=== PATIENT | male | born 1940 | race Caucasian/White ===

== ENCOUNTER → 2016-10-08 | Outpatient (CLI) | payer OTHER ==
[~2016-10-08] MED LIST: AMLO-114 PO; AMLO5TAB2 PO; ASPCH81X PO; ASPI81TA21 PO; ATEN100T PO; ATOR80TA PO; DOCU100C PO; GLIM2TAB2 PO; ISOS120T5 PO; ISOS60TA2 PO; LSX20 PO; NITR0.4S UT; PLV75 PO; TYLOTC500 PO; ZNTT/150 PO
[2016-10-08 12:44] LABS: HEMATOCRIT 48.9 % (42-52); MEAN CELL VOLUME 93.7 fL (80-100); MEAN CORPUSCULAR HEMOGLOBIN 32.8 pg (25-34); MEAN PLATELET VOLUME 11.5 fL (7.4-10.4); PLATELET COUNT 196 K/uL (130-400); RED BLOOD COUNT 5.22 M/uL (4.7-6.1); WHITE BLOOD COUNT 8.39 K/uL (4.8-10.8)
[2016-10-08 13:06] LABS: ALT/SGPT 54 U/L (12-78); BLOOD UREA NITROGEN 16 mg/dl (7-18); BUN/CREATININE RATIO 10.5 (10-20); CALCIUM 9.1 mg/dl (8.5-10.1); CARBON DIOXIDE 25 mmol/L (21-32); CHLORIDE 105 mmol/L (98-107); CHOLESTEROL 119 mg/dl (0-200); GLUCOSE 138 mg/dl (70-99); POTASSIUM 4.1 mmol/L (3.5-5.1); SODIUM 140 mmol/L (136-145); TRIGLYCERIDES 117 mg/dl (0-150); VERY LOW DENSITY LIPOPROT CALC 23 mg/dl
[2016-10-08 13:16] LABS: ALKALINE PHOSPHATASE 108 U/L (45-117); AST/SGOT 32 U/L (15-37); CHOLESTEROL/HDL RATIO 3.1; HDL CHOLESTEROL 38 mg/dl; LDL CHOLESTEROL CALCULATED 58 mg/dl
[2016-10-08 13:17] LABS: ESTIMATED AVERAGE GLUCOSE 131 mg/dl; HA1C FLAG Normal (Normal)
== END | disposition home or self-care (01) ==
LOC: C.LABBFT 10:19
PROVIDERS: ATTEND Internal Medicine Cardiovascular Disease
DX: E11.21 Type 2 diabetes mellitus with diabetic nephropathy (principal); I25.10 Atherosclerotic heart disease of native coronary artery without angina pectoris; I50.32 Chronic diastolic (congestive) heart failure

== ENCOUNTER → 2017-04-15 | Day surgery (SDC) | payer OTHER ==
[2017-03-31 14:15] VITALS: Ht 172.7 cm; Wt 97.7 kg
[~2017-04-15] VITALS: Ht 172.7 cm; Wt 97.7 kg
[~2017-04-15] MED LIST changes: +500ML BSS 0.3ML EPI 1:1000PF IRRIG ONE; +ACETAMINOPHEN 325 MG TAB PO PRN; -AMLO5TAB2 PO; +AMVISC PLUS 0.8ML SYRINGE INT OCU ONE; -ASPCH81X PO; +ATROPINE SULFATE 0.1 MG/ML 5ML SYR IV PRN; +AcetaZOLAMIDE 250 MG TAB PO SCH; +BETAXOLOL HCL 0.25% OP SUSP PER DROP CHARGE OPR SCH; +BRIMONIDINE TART 0.2% OP SOLN PER DROP CHARGE ONE; +BSS FLUSH ONE; -DOCU100C PO; +ENDOCOAT 0.85ML SYRINGE INT OCU ONE; +EpHEDrine SULFATE INJ 50 MG/ML AMP IV PRN; +EpINEphrine INJ 1MG/ML AMP 1 MG/ML AMP ONE; -ISOS60TA2 PO; +LACTATED RINGER'S 1000ML 500 ML IV SCH; +LIDOCAINE 4% OP SOLN DROP CHARGE ONE; +LIDOCAINE 4% OP SOLN DROP CHARGE OPR SCH; +LIDOCAINE HCL 1% MPF 2 ML VIAL ONE; +MIDAZOLAM HCL 1 MG/ML 2ML VIAL ONE; +MIX: 4ML BSS 1ML EPI 1:1000 PF INSTIL ONE; +MOXIFLOXACIN OPH SOLN PER DROP CHARGE ONE; +OCUCOAT 1 ML SOLN IO ONE; +ONDANSETRON INJ 2 MG/ML 2 ML VIAL IV PRN; +POVIDONE-IODINE OP SOLN 30 ML BTL ONE; +PROPARACAINE 0.5% OP SOLN PER DROP CHARGE OPR SCH; +TOBRAMYCIN/DEXAMETHASONE OPH OINT PER APPLN CHARGE ONE; -TYLOTC500 PO
--- NOTE | 2017-04-15 08:14 | History & Physical Bridge - [place] ---
H&P Re-Evaluation Bridge Note: I have examined the patient, reviewed the History & Physical and in the interval since the performance of the History & Physical I have noted the following changes of clinical significance: No changes noted
[2017-04-15] MEDS: PHENYLEPHRINE HCL 2.5% OP SOLN PER DROP CHARGE OPR SCH ×2 (08:52→08:57)
[2017-04-15] MEDS: TROPICAMIDE 1% OP SOLN PER DROP CHARGE OPR SCH ×2 (08:53→08:58)
[2017-04-15] MEDS: CYCLOPENTOLATE HCL 1% OP SOLN PER DROP CHARGE OPR SCH ×2 (08:54→08:59)
[2017-04-15] MEDS: MOXIFLOXACIN OPH SOLN PER DROP CHARGE OPR SCH ×2 (08:55→09:06)
--- NOTE | 2017-04-15 09:50 | Discharge Instructions-SurgCtr ---
Discharge Instructions Date of Service Apr 15, 2017. Visit Reason for Visit: Cataract Right Eye Discharge Discharge Diagnosis / Problem: lens implant right eye Discharge Goals Goal(s): Improve function Medications Stopped Medications Name(s): Stopped baby aspirin and metformin Activity Recommendations Activity Limitations: resume your previous activity Lifting Limitations: no more than 10 pounds Exercise/Sports Limitations: gradually increase as tolerated May Resume Sexual Activity: when tolerated Shower/Bathe: tomorrow Driving or Machine Use: resume 1 day after discharge Anesthesia . Post Anesthesia Instructions: If you have had General Anesthesia or IV Sedation: * Do not drive today. * Resume driving when surgeon permits. * Do not make important decisions or sign legal documents today. * Call surgeon for: 1. Temperature elevations greater than 101 degrees F. 2. Uncontrollable pain. 3. Excessive bleeding. 4. Persistent nausea and vomiting. 5. Medication intolerance (nausea, vomiting or rash). * For nausea and vomiting use only clear liquids such as: tea, soda, bouillon until nausea subsides, then gradually increase diet as tolerated. * If you have any concerns or questions, call your surgeon's office. If physician is unavailable and it is an emergency, call 911 or go to the nearest emergency room. . Instructions / Follow-Up Instructions / Follow-Up ACTIVITY RECOMMENDATIONS: * Light activities. * Mild irritation and blurred vision are common for the first few days. * You may walk outside, read, watch television. * Redness around the white part of the eye is common. MEDICATIONS: Resume previous medications unless instructed otherwise by your surgeon. * Take white Diamox (Acetazolamide) tablet at 1 pm today. Start all eye drops at 1 pm today: * Eye drops (today and tomorrow): Prednisone - one drop in operative eye every 3 hours while awake Ofloxacin - one drop in operative eye every 3 hours while awake SPECIAL CARE INSTRUCTIONS: * Tape plastic shield over eye to sleep at night. Call your doctor at with any concerns or problems. FOLLOW UP VISIT: Follow-up with Dr Beasley at [place] office as scheduled. Diet Recommendations Home Diet: no limitations Procedures Procedures Performed: cataract extraction with lens implant Pending Studies Studies pending at discharge: no Medical Emergencies . Who to Call and When: Medical Emergencies: If at any time you feel your situation is an emergency, please call 911 immediately. . Non-Emergent Contact Non-Emergency issues call your: Talent Development Specialist Call Non-Emergent contact if: your pain is not controlled [phone] . . "Provider Documentation" section prepared by Dawood Beasley. .
--- NOTE | 2017-04-15 09:52 | [facility] Operative Report ---
Operative Report Date of Service Apr 15, 2017. Operative Report 1. PREOPERATIVE DIAGNOSIS: Senile nuclear cataract, right eye. 2. POSTOPERATIVE DIAGNOSIS: Senile nuclear cataract, right eye. 3. PROCEDURE: Phacoemulsification of right cataract with posterior chamber lens implant, type [employer]ch [employer] Lomb, model MX60, power +23.0 diopters. ANESTHESIA: Local standby. SURGEON: Dr. Beasley. COMPLICATIONS: None. OPERATING TIME: 10 minutes. 4. OPERATION AND FINDINGS: DESCRIPTION OF PROCEDURE: The right pupil was dilated. The anesthetic was administered using a topical technique. The right eye was prepped and draped. A speculum was placed. A clear corneal incision was formed. The chamber was filled with Amvisc Plus and Endocoat. Epinephrine solution was used. A paracentesis was placed. A capsulorrhexis was performed. The nucleus was hydrodissected. The lens was removed with phacoemulsification. Time was 4.49 seconds. The aspiration unit was used to remove the cortex. The capsule was filled with Amvisc Plus. The lens implant was folded and placed into the capsule. The incision was hydrated. The Amvisc was aspirated. The wound was secure. The chamber was deep. The pupil was round. Brimonidine, TobraDex ointment and Vigamox solution were placed. The speculum was removed. The patient was returned to the Recovery Room in stable condition. I attest to the content of the Intraoperative Record and any orders documented therein. Any exceptions are noted below. The scribe's documentation has been prepared in my presence, under my direction and personally reviewed by me in its entirety. I confirm that the note above accurately reflects all work, treatment, procedures, and medical decision making performed by me. I personally scribed for Dawood Beasley M.D. ([email or web address]) on 04/15/17 at 09:52. Electronically submitted by She Cano ([email or web address]).
[2017-04-15 09:58] VITALS: TEMP 36.4
[2017-04-15 10:23] VITALS: BP 128/70; PULSE 49; O2SAT 99
--- NOTE | 2017-04-15 10:30 | Anesthesia Progress Nt - [facility] ---
Anesthesia Post Op Note Date & Time Apr 15, 2017 at 10:30 Vital Signs Pain Intensity: 0 Vital Signs Past 12 Hours Date Time Temp Pulse Resp B/P (MAP) Pulse Ox O2 Delivery O2 Flow Rate FiO2 04/15/17 10:23 49 16 128/70 (89) 99 Room Air 04/15/17 09:58 36.4 47 14 113/77 (89) 99 Room Air 04/15/17 08:35 36.4 44 12 142/77 (98) 97 Room Air Notes Mental Status: alert / awake / arousable, participated in evaluation Pt Amnestic to Procedure: Yes Nausea / Vomiting: adequately controlled Pain: adequately controlled Airway Patency, RR, SpO2: stable & adequate BP & HR: stable & adequate Hydration State: stable & adequate Anesthetic Complications: no major complications apparent
== END | disposition home or self-care (01) ==
LOC: X.SURG 07:34
PROVIDERS: ATTEND Specialist
DX: H25.11 Age-related nuclear cataract, right eye (principal); I10 Essential (primary) hypertension; I51.9 Heart disease, unspecified

== ENCOUNTER → 2017-05-06 | Day surgery (SDC) | payer OTHER ==
[2017-04-27 09:43] VITALS: Ht 172.7 cm; Wt 97.7 kg
[~2017-05-06] VITALS: Ht 172.7 cm; Wt 97.7 kg
[~2017-05-06] MED LIST changes: +BETAXOLOL HCL 0.25% OP SUSP PER DROP CHARGE OPL SCH; -BETAXOLOL HCL 0.25% OP SUSP PER DROP CHARGE OPR SCH; +LIDOCAINE 4% OP SOLN DROP CHARGE OPL SCH; -LIDOCAINE 4% OP SOLN DROP CHARGE OPR SCH; -ONDANSETRON INJ 2 MG/ML 2 ML VIAL IV PRN; +PROPARACAINE 0.5% OP SOLN PER DROP CHARGE OPL SCH; -PROPARACAINE 0.5% OP SOLN PER DROP CHARGE OPR SCH; -ZNTT/150 PO
[2017-05-06] MEDS: PHENYLEPHRINE HCL 2.5% OP SOLN PER DROP CHARGE OPL SCH ×2 (10:44→10:49)
[2017-05-06] MEDS: TROPICAMIDE 1% OP SOLN PER DROP CHARGE OPL SCH ×2 (10:45→10:50)
[2017-05-06] MEDS: CYCLOPENTOLATE HCL 1% OP SOLN PER DROP CHARGE OPL SCH ×2 (10:46→10:51)
[2017-05-06] MEDS: MOXIFLOXACIN OPH SOLN PER DROP CHARGE OPL SCH ×2 (10:47→11:03)
--- NOTE | 2017-05-06 11:45 | Discharge Instructions-SurgCtr ---
Discharge Instructions Date of Service May 06, 2017. Visit Reason for Visit: Cataract Left Eye Discharge Discharge Diagnosis / Problem: lens implant left eye Discharge Goals Goal(s): Improve function Activity Recommendations Activity Limitations: resume your previous activity Lifting Limitations: no more than 10 pounds Exercise/Sports Limitations: gradually increase as tolerated May Resume Sexual Activity: when tolerated Shower/Bathe: tomorrow Driving or Machine Use: resume 1 day after discharge Anesthesia . Post Anesthesia Instructions: If you have had General Anesthesia or IV Sedation: * Do not drive today. * Resume driving when surgeon permits. * Do not make important decisions or sign legal documents today. * Call surgeon for: 1. Temperature elevations greater than 101 degrees F. 2. Uncontrollable pain. 3. Excessive bleeding. 4. Persistent nausea and vomiting. 5. Medication intolerance (nausea, vomiting or rash). * For nausea and vomiting use only clear liquids such as: tea, soda, bouillon until nausea subsides, then gradually increase diet as tolerated. * If you have any concerns or questions, call your surgeon's office. If physician is unavailable and it is an emergency, call 911 or go to the nearest emergency room. . Instructions / Follow-Up Instructions / Follow-Up ACTIVITY RECOMMENDATIONS: * Light activities. * Mild irritation and blurred vision are common for the first few days. * You may walk outside, read, watch television. * Redness around the white part of the eye is common. MEDICATIONS: Resume previous medications unless instructed otherwise by your surgeon. * Take white Diamox (Acetazolamide) tablet at 1 pm today. Start all eye drops at 1 pm today: * Eye drops (today and tomorrow): Prednisone - one drop in operative eye every 3 hours while awake Ofloxacin - one drop in operative eye every 3 hours while awake SPECIAL CARE INSTRUCTIONS: * Tape plastic shield over eye to sleep at night. Call your doctor at with any concerns or problems. FOLLOW UP VISIT: Follow-up with Dr Beasley at [place] office as scheduled. Diet Recommendations Home Diet: no limitations Procedures Procedures Performed: cataract extraction with lens implant Pending Studies Studies pending at discharge: no Medical Emergencies . Who to Call and When: Medical Emergencies: If at any time you feel your situation is an emergency, please call 911 immediately. . Non-Emergent Contact Non-Emergency issues call your: Bumper Machine Operator Call Non-Emergent contact if: your pain is not controlled [phone] . . "Provider Documentation" section prepared by Dawood Beasley. .
--- NOTE | 2017-05-06 11:47 | [facility] Operative Report ---
Operative Report Date of Service May 06, 2017. Operative Report 1. PREOPERATIVE DIAGNOSIS: Senile nuclear cataract, left eye. 2. POSTOPERATIVE DIAGNOSIS: Senile nuclear cataract, left eye. 3. PROCEDURE: Phacoemulsification of left cataract with posterior chamber lens implant, type Bausch [employer] Lomb, model MX60, power +22.5 diopters. ANESTHESIA: Local standby. SURGEON: Dr. Beasley. COMPLICATIONS: None. OPERATING TIME: 10 minutes. 4. OPERATION AND FINDINGS: DESCRIPTION OF PROCEDURE: The left pupil was dilated. The anesthetic was administered using a topical technique. The left eye was prepped and draped. A speculum was placed. A clear corneal incision was formed. The chamber was filled with Amvisc Plus and Endocoat. Epinephrine solution was used. A paracentesis was placed. A capsulorrhexis was performed. The nucleus was hydrodissected. The lens was removed with phacoemulsification. Time was 4.85 seconds. The aspiration unit was used to remove the cortex. The capsule was filled with Amvisc Plus. The lens implant was folded and placed into the capsule. The incision was hydrated. The Amvisc was aspirated. The wound was secure. The chamber was deep. The pupil was round. Brimonidine, TobraDex ointment and Vigamox solution were placed. The speculum was removed. The patient was returned to the Recovery Room in stable condition. I attest to the content of the Intraoperative Record and any orders documented therein. Any exceptions are noted below. The scribe's documentation has been prepared in my presence, under my direction and personally reviewed by me in its entirety. I confirm that the note above accurately reflects all work, treatment, procedures, and medical decision making performed by me. I personally scribed for Dawood Beasley M.D. ([email or web address]) on 05/06/17 at 11:47. Electronically submitted by She Cano ([email or web address]).
[2017-05-06 11:51] VITALS: BP 114/68; PULSE 49; TEMP 37; O2SAT 97
--- NOTE | 2017-05-06 12:16 | Anesthesia Progress Nt - [facility] ---
Anesthesia Post Op Note Date & Time May 06, 2017 at 12:15 Vital Signs Pain Intensity: 0 Vital Signs Past 12 Hours Date Time Temp Pulse Resp B/P (MAP) Pulse Ox O2 Delivery O2 Flow Rate FiO2 05/06/17 11:51 37.0 49 12 114/68 (83) 97 Room Air 05/06/17 10:31 36.5 53 18 150/76 (100) 97 Room Air Notes Mental Status: alert / awake / arousable, participated in evaluation Pt Amnestic to Procedure: Yes Nausea / Vomiting: adequately controlled Pain: adequately controlled Airway Patency, RR, SpO2: stable & adequate BP & HR: stable & adequate Hydration State: stable & adequate Anesthetic Complications: no major complications apparent
== END | disposition home or self-care (01) ==
LOC: X.SURG 08:56
PROVIDERS: ATTEND Specialist
DX: H25.12 Age-related nuclear cataract, left eye (principal); I10 Essential (primary) hypertension; Z79.82 Long term (current) use of aspirin; Z79.899 Other long term (current) drug therapy

== ENCOUNTER → 2017-05-08 | Outpatient (CLI) | payer OTHER ==
[~2017-05-08] MED LIST changes: -500ML BSS 0.3ML EPI 1:1000PF IRRIG ONE; -ACETAMINOPHEN 325 MG TAB PO PRN; -AMVISC PLUS 0.8ML SYRINGE INT OCU ONE; -ATROPINE SULFATE 0.1 MG/ML 5ML SYR IV PRN; -AcetaZOLAMIDE 250 MG TAB PO SCH; -BETAXOLOL HCL 0.25% OP SUSP PER DROP CHARGE OPL SCH; -BRIMONIDINE TART 0.2% OP SOLN PER DROP CHARGE ONE; -BSS FLUSH ONE; -ENDOCOAT 0.85ML SYRINGE INT OCU ONE; -EpHEDrine SULFATE INJ 50 MG/ML AMP IV PRN; -EpINEphrine INJ 1MG/ML AMP 1 MG/ML AMP ONE; -LACTATED RINGER'S 1000ML 500 ML IV SCH; -LIDOCAINE 4% OP SOLN DROP CHARGE ONE; -LIDOCAINE 4% OP SOLN DROP CHARGE OPL SCH; -LIDOCAINE HCL 1% MPF 2 ML VIAL ONE; -MIDAZOLAM HCL 1 MG/ML 2ML VIAL ONE; -MIX: 4ML BSS 1ML EPI 1:1000 PF INSTIL ONE; -MOXIFLOXACIN OPH SOLN PER DROP CHARGE ONE; -OCUCOAT 1 ML SOLN IO ONE; -POVIDONE-IODINE OP SOLN 30 ML BTL ONE; -PROPARACAINE 0.5% OP SOLN PER DROP CHARGE OPL SCH; -TOBRAMYCIN/DEXAMETHASONE OPH OINT PER APPLN CHARGE ONE
[2017-05-08 16:48] LABS: HEMATOCRIT 48.5 % (42-52); MEAN CELL VOLUME 91.7 fL (80-100); MEAN CORPUSCULAR HEMOGLOBIN 31.8 pg (25-34); MEAN CORPUSCULAR HGB CONC 34.6 g/dl (32-36); MEAN PLATELET VOLUME 11.4 fL (7.4-10.4); PLATELET COUNT 186 K/uL (130-400); RED BLOOD COUNT 5.29 M/uL (4.7-6.1); WHITE BLOOD COUNT 8.17 K/uL (4.8-10.8)
[2017-05-08 17:02] LABS: ALT/SGPT 53 U/L (12-78); AST/SGOT 30 U/L (15-37); BLOOD UREA NITROGEN 19 mg/dl (7-18); BUN/CREATININE RATIO 13.8 (10-20); CARBON DIOXIDE 23 mmol/L (21-32); CHLORIDE 109 mmol/L (98-107); GLUCOSE 136 mg/dl (70-99); POTASSIUM 3.9 mmol/L (3.5-5.1); SODIUM 139 mmol/L (136-145)
[2017-05-08 17:05] LABS: ALB/GLOB RATIO 0.8 (0.9-2); ALKALINE PHOSPHATASE 116 U/L (45-117); CHOLESTEROL 96 mg/dl (0-200); CHOLESTEROL/HDL RATIO 3.6; HDL CHOLESTEROL 27 mg/dl; LDL CHOLESTEROL CALCULATED 33 mg/dl; TRIGLYCERIDES 178 mg/dl (0-150); VERY LOW DENSITY LIPOPROT CALC 36 mg/dl
[2017-05-09 08:27] LABS: ESTIMATED AVERAGE GLUCOSE 137 mg/dl; HA1C FLAG Normal (Normal)
== END | disposition home or self-care (01) ==
LOC: C.LABBFT 14:28
PROVIDERS: ATTEND Internal Medicine
DX: E11.21 Type 2 diabetes mellitus with diabetic nephropathy (principal); I25.10 Atherosclerotic heart disease of native coronary artery without angina pectoris

== ENCOUNTER 2019-08-03 | Inpatient (IN) ==
[2019-08-03] MEDS ORDERED: NITROGLYCERIN/D5W 100 MCG/ML BTL ONE (00:08)
[2019-08-03] MEDS ORDERED: NiCARDipine HCL INJ 2.5 MG/ML 10 ML AMP ONE (00:09)
[2019-08-03] MEDS ORDERED: fentaNYL citrate 100 MCG/2 ML VIAL ONE (00:09)
[2019-08-03] MEDS ORDERED: HEPARIN (PORCINE) 1000 UNIT/ML 10 ML (CATH LAB USE ONLY) ONE (00:09)
[2019-08-03] MEDS ORDERED: MIDAZOLAM HCL 1 MG/ML 2ML VIAL ONE (00:10)
[2019-08-03] MEDS ORDERED: NITROGLYCERIN/D5W 100MCG/ML 20ML SYR ONE (00:10)
[2019-08-03] MEDS ORDERED: NITROGLYCERIN/D5W 100MCG/ML 250 ML IV SCH (00:15)
[2019-08-03 00:25] LABS: Basophils # (auto) 0.02 K/uL (0-0.2); Basophils % (auto) 0.3 %; Eosinophils % (auto) 3.8 %; Hematocrit (blood only) 50.8 % (42-52); Hemoglobin 17.5 g/dL (14.0-18.0); Immature Granulocytes # (auto) 0.01 K/uL (0.00-0.02); Immature Granulocytes % (auto) 0.1 %; Lymphocytes # (auto) 1.67 K/uL (1.2-3.4); Mean Corpuscular Hemoglobin 31.8 pg (25-34); Mean Corpuscular Hgb Conc 34.4 g/dL (32-36); Mean Corpuscular Volume 92.2 fL (80-100); Mean Platelet Volume 11.4 fL (7.4-10.4); Monocytes # (auto) 0.68 K/uL (0.11-0.59); Monocytes % (auto) 8.6 %; Neutrophils # (auto) 5.26 K/uL (1.4-6.5); Neutrophils % (auto) 66.2 %; Platelet Count 173 K/uL (130-400); RDW Coefficient of Variation 12.9 % (11.5-14.5); RDW Standard Deviation 43.6 fL (36.4-46.3); Red Blood Count 5.51 M/uL (4.7-6.1); White Blood Count 7.94 K/uL (4.8-10.8)
[2019-08-03 00:41] LABS: INR 1.1 (0.9-1.1); Prothrombin Time 10.9 Seconds (9.0-12.0)
[2019-08-03 00:44] LABS: Albumin Level 3.5 gm/dl (3.4-5.0); BUN Creatinine Ratio 10.1 (10-20); Creatinine Clr Calc Pharmacy 43.7 ml/min; Est GFR (African American) 52.2; Magnesium 2.3 mg/dl (1.8-2.4); Potassium 3.9 mmol/L (3.5-5.1)
[2019-08-03] MEDS ORDERED: ASPIRIN 81 MG CHEW ONE (00:44)
[2019-08-03 01:08] LABS: Albumin Globulin Ratio 0.9 (0.9-2); Bilirubin,Total 0.7 mg/dl (0.2-1); Creatine Kinase MB 14.2 ng/ml (0.5-3.6); Globulin 3.9 gm/dl (2.5-4.0); Thyroid Stimulating Hormone 1.7 uIu/ml (0.300-4.500); Total Protein 7.4 gm/dl (6.4-8.2); Troponin I 0.806 ng/ml (0-0.045)
[2019-08-03] MEDS ORDERED: ICU PROTOCOL FOR HYPERGLYCEMIA PRN (01:20)
[2019-08-03] MEDS ORDERED: CLOPIDOGREL BISULFATE 300 MG TAB PO STA (01:26)
[2019-08-03] MEDS ORDERED: NITROGLYCERIN SL 0.4 MG/TAB TAB SL PRN (01:27)
[2019-08-03] MEDS ORDERED: METOPROLOL TARTRATE 50 MG TAB PO STA (01:28)
[2019-08-03] MEDS ORDERED: SODIUM CHLORIDE 0.9% 1000ML 1,000 ML IV SCH (01:30)
--- NOTE | 2019-08-03 01:31 | Pre Anesthesia Assessment ---
Date of Service August 03, 2019 Pre Sedation Assessment Vital Signs Temp Pulse Resp BP Pulse Ox 08/03/19 00:22 93 H 17 191/93 H 91 08/03/19 00:21 84 16 192/96 H 95 08/03/19 00:20 86 25 H 95 08/03/19 00:10 87 24 95 08/03/19 00:06 88 3 L 97 08/03/19 00:04 82 16 195/102 H 97 08/03/19 00:03 98.1 F 84 15 195/110 H 96 Cardiovascular RRR, no murmur, no edema Respiratory normal respiratory effort, lungs clear to auscultation Pre-Sedation Airway Assessment Smoking Status: Former smoker Hx Sleep Apnea: No Hx Difficult Intubation: No Short, Thick Neck: No Thyromental Distance: > or= 3.5 Finger Breadths Oral Cavity: + Dental Abnormalities Mallampati Class: III ASA: ASA3 NPO Status Last Intake of Solids Comment: unknown ever Procedure Planning Contraindications for Sedation: none Current Medications Reviewed: Yes Notes The planned sedation has been discussed with the patient. Informed Consent was obtained. I have identified the patient, determined the appropriateness of sedation and have assessed the patient immediately prior to the procedure. All medicine(s) and interventions are by my order.
--- NOTE | 2019-08-03 01:32 | Post Anesthesia Assessment ---
Date of Service August 03, 2019 Post Sedation Assessment Vital Signs Temp Pulse Resp BP Pulse Ox 08/03/19 00:22 93 H 17 191/93 H 91 08/03/19 00:21 84 16 192/96 H 95 08/03/19 00:20 86 25 H 95 08/03/19 00:10 87 24 95 08/03/19 00:06 88 3 L 97 08/03/19 00:04 82 16 195/102 H 97 08/03/19 00:03 98.1 F 84 15 195/110 H 96 Recovery Score Activity: Moves 4 extremities Respiration: Deep Breath/Cough Circulation: +/-20% PreAnes Value Consciousness: Fully Awake Oxygen Saturation: O2 needed for >90% Discharge Sedation Level of Care: Fast Track Phase II Post Sedation Plan On clinical assessment, the patient appears to have tolerated the sedation without complications. Patient is recovering as anticipated. Patient will continue to be monitored by nursing and may be discharged when sedation discharge criteria are met per below protocol. Upon Completions of procedure up to 15 minutes continue every 5 minute vital signs and the P.A.R. score; then discharge to a Phase I or Fast Track to Phase II per the following guidelines: * Discharge Patient to appropriate Phase II area if PAR is 8 or greater or return to pre- procedure baseline. The post - procedure orders will be as directed. * If PAR score is less than 8 or not return to pre-procedure baseline then patient will follow Phase I monitoring till PAR is reached for Phase II. The Phase I may be done in procedure room or may call to secure a Phase I area. * If naloxone or flumazenil are used for reversal, hold in Phase I for continued monitoring from when last reversal dose was given for a minimum of 60 minutes or longer pending the nurse and/or physician discretion of patient condition before discharge to Phase II. Please call the Sedation Physician to re-evaluate and complete post-note for discharge to Phase II area. Do NOT discharge from procedure sedation or Phase 1 until post- sedation evaluation note is complete by procedure /sedation MD Sedation Discharge Instructions to be given to the patient at discharge to home.
--- NOTE | 2019-08-03 01:33 | Emergency Department Note ---
Entered by Nikki Rai acting as a scribe for History of Present Illness General Chief complaint: Chest Pain Stated complaint: CHEST PAIN History of Present Illness Provider complaint: chest pain Onset (ago): hour(s) (2.5) Location: chest Radiation: neck and extremity (upper) Pain Consistency: + other (episode) Associated symptoms: + denies other symptoms (stomach pain ) and + other (sitt ing on the couch in-and-out of sleep when the pain started, initial pain 9/10, after medication pain was 7/10, has a DNR, history of GA and 3 cardiac stents); no shortness of breath Treatments prior to arrival: other (6 Nitroglycerin, Zofran, Fentanyl, Aspirin) The patient is a 79 year old male who presents to the ED with complaints of an episode of chest pain that started 2.5 hours ago. Per EMS, the patient was sitting on the couch in-and-out of sleep when the pain started. Per EMS, the patient complained that the chest pain radiated to his neck and both arms. Per EMS, the patient rated his initial chest pain as a 9/10. Per EMS, the patient took 3 Nitroglycerin before they arrived without relief. Per EMS, the patient was given 3 more Nitroglycerin en route as well as Zofran, Fentanyl and Aspirin. Per EMS, the patient rated his pain as a 7/10 after all the medications were administered. Per EMS, the patient has a history of an GA as well as 3 cardiac stents. Per EMS, the patient has a DNR. The patient denies shortness of breath and stomach pain. Per EMS, the patients son stated that he is normally has slow speech. Home Medications Home Medications Medication Instructions Recorded Confirmed Type isosorbide mononitrate 120 mg 240 mg PO DAILY #180 tab 04/01/19 08/03/19 Rx tablet,extended release 24 hr amlodipine 10 mg tablet 10 mg PO DAILY 06/09/19 08/03/19 History aspirin 81 mg tablet,delayed 81 mg PO DAILY 06/09/19 08/03/19 History release atenolol 100 mg tablet 100 mg PO DAILY 06/09/19 08/03/19 History atorvastatin 80 mg tablet 80 mg PO DAILY #90 tab 06/09/19 08/03/19 Rx docusate sodium 100 mg capsule 100 mg PO DAILY 06/09/19 08/03/19 History furosemide 20 mg tablet 20 mg PO DAILY tab 06/09/19 08/03/19 History glimepiride 2 mg tablet 2 mg PO QAM 06/09/19 08/03/19 History nitroglycerin 0.4 mg sublingual See Rx Instructions SL Q5M PRN 06/09/19 08/03/19 History tablet ranitidine HCl 150 mg capsule 150 mg PO BID 06/09/19 08/03/19 History Allergies Allergy/AdvReac Type Severity Reaction Status Date / Time No Known Allergies Allergy Unknown Verified 08/03/19 00:25 Past Med/Surg History Medical History CHF (congestive heart failure), NYHA class III (Acute 10/05/14) Elevated troponin (Acute) Generalized weakness (Acute) Myocardial infarction Surgical History Hx of heart artery stent Social History Feels Safe at Home: Yes Smoking Status: Former smoker Hx Substance Use: No Review of Systems See HPI for pertinent positives & negatives. and A total of 10 systems reviewed and were otherwise negative Physical Exam Vital Signs Vital Signs - 24 hr 08/03/19 00:03 08/03/19 00:04 08/03/19 00:06 Temperature 36.7 C Temperature Source Oral Pulse Rate 84 82 88 Pulse Rate from SpO2 Sensor 68 75 Respiratory Rate 15 16 3 L Blood Pressure 195/110 H 195/102 H Blood Pressure Mean 138 127 Pulse Oximetry 96 97 97 Oxygen Delivery Method Room Air Room Air Room Air Sepsis Recent Fever Within 48 Hours No Sepsis New/Unexplained Change in Mental Status No Sepsis Action Taken by Nursing No Action Required 08/03/19 00:10 08/03/19 00:20 08/03/19 00:21 Temperature Temperature Source Pulse Rate 87 86 84 Pulse Rate from SpO2 Sensor 67 86 53 L Respiratory Rate 24 25 H 16 Blood Pressure 192/96 H Blood Pressure Mean 116 Pulse Oximetry 95 95 95 Oxygen Delivery Method Room Air Room Air Room Air Sepsis Recent Fever Within 48 Hours Sepsis New/Unexplained Change in Mental Status Sepsis Action Taken by Nursing 08/03/19 00:22 08/03/19 00:33 Temperature Temperature Source Pulse Rate 93 H Pulse Rate from SpO2 Sensor 85 Respiratory Rate 17 Blood Pressure 191/93 H Blood Pressure Mean 113 Pulse Oximetry 91 Oxygen Delivery Method Room Air Room Air Sepsis Recent Fever Within 48 Hours Sepsis New/Unexplained Change in Mental Status Sepsis Action Taken by Nursing Constitutional: Vital signs reviewed. Eyes: Pupils are equal round reactive to light. Conjunctiva are noninjected. ENT: Pharynx is clear without erythema or exudate. Mucous membranes are moist. Neck supple without meningeal signs. Respiratory: Clear to auscultation bilaterally. Breath sounds are equal bilaterally. Cardiovascular: Regular rate and rhythm. No rubs or gallops. GI: Soft, nondistended and nontender. Bowel sounds are present. Musculoskeletal: No peripheral edema. No lower extremity tenderness. Integumentary: No cyanosis. Neurological: Slow speech. The patient is awake and alert. No focal deficits. Psychiatric: Normal affect. Course Course 0001: Past medical records reviewed. The patient was evaluated in room B1. A complete history and physical exam was performed. 0012: I reviewed the case and EKGs with Dr. Diana Kwong. He is seeing the patient now and the Nitroglycerin drip is starting. 0022: I obtained cath report from [facility] 2012. The patient's chest pain was rated as a 3/10 at this time. 0028: I reevaluated the patient and she states that his chest pain is almost g one. The patient's blood pressure is still elevated. Dr. Perez got consent from the patient's son and is taking the patient to the medical lab specialist. Dr. Diana Kwong will evaluate the patient for further management. Consultations Consultation #1: I reviewed the case and EKGs with Dr. Diana Kwong. He is seeing the patient now and the Nitroglycerin drip is starting. Time: 00:12 Consultation #2: I reevaluated the patient and she states that his chest pain is almost gone. The patient's blood pressure is still elevated. Dr. Perez got consent from the patient's son and is taking the patient to the medical lab specialist. Dr. Diana Kwong will evaluate the patient for further management. Time: 00:28 Administered Medications Nitroglycerin/Dextrose (Nitroglycerin/D5w 100 Mcg/Ml) 250 mls @ 3 mls/hr IV .Q24H [facility]; Protocol Stop: 09/02/19 00:14 Last Admin: 08/03/19 00:12 Dose: 5 mcg/min, 3 mls/hr Documented by: [id number] Cosigned by: [id number] Discontinued Medications Nitroglycerin/Dextrose (Nitroglycerin/D5w 100 Mcg/Ml 20ml Syringe) Confirm Administered Dose 2,000 mcg .ROUTE .evocatalK-MED ONE Stop: 08/03/19 00:11 Last Admin: 08/03/19 00:14 Dose: Not Given Documented by: [id number] Critical Care Time Critical Care Time: Yes Total Critical Care Time: 33 I have personally spent 33 minutes of critical care time in the direct management of this patient. This includes bedside care, interpretation of diagnostic studies, and testing, discussion with consultants, patient, and family members, and other required patient management activities. This 33 minutes is in excess of all separately billable procedures. Medical Decision Making Differential Diagnosis Differentials include STEMI, hypertensive emergency, aortic dissection, PE, ventricular aneurysm. Medical Records Attestation: I reviewed the patient's medical records. I did perform a limited focused review of portions of the patient's old chart on the electronic medical record. The patient has had no recent pertinent visits to this hospital. Home Medications Current Medication List: was personally reviewed by me Laboratory Data Result diagrams: 08/03/19 00:14 08/03/19 00:14 Lab Results 08/03/19 08/03/19 08/03/19 Range/Units 00:14 00:14 00:14 WBC 7.94 (4.8-10.8) K/uL RBC 5.51 (4.7-6.1) M/uL Hgb 17.5 (14.0-18.0) g/dL Hct 50.8 (42-52) % MCV 92.2 (80-100) fL MCH 31.8 (25-34) pg MCHC 34.4 (32-36) g/dL RDW Std Deviation 43.6 (36.4-46.3) fL RDW Coeff of Leo 12.9 (11.5-14.5) % Plt Count 173 (130-400) K/uL MPV 11.4 H (7.4-10.4) fL Immature Gran % (Auto) 0.1 % Neut % (Auto) 66.2 % Lymph % (Auto) 21.0 % [place] % (Auto) 8.6 % Eos % (Auto) 3.8 % Baso % (Auto) 0.3 % Immature Gran # (Auto) 0.01 (0.00-0.02) K/uL Neut # (Auto) 5.26 (1.4-6.5) K/uL Lymph # (Auto) 1.67 (1.2-3.4) K/uL [place] # (Auto) 0.68 H (0.11-0.59) K/uL Eos # (Auto) 0.30 (0-0.5) K/uL Baso # (Auto) 0.02 (0-0.2) K/uL PT 10.9 (9.0-12.0) Seconds INR 1.1 (0.9-1.1) APTT 27.0 (21.0-31.0) Seconds PTT Ratio 1.0 Sodium 137 (136-145) mmol/L Potassium 3.9 (3.5-5.1) mmol/L Chloride 104 (98-107) mmol/L Carbon Dioxide 26 (21-32) mmol/L Anion Gap 7.0 (3-11) BUN 15 (7-18) mg/dl Creatinine 1.47 H (0.6-1.4) mg/dl Est Cr Clr Drug Dosing 43.7 ml/min Est GFR ( Amer) 52.2 Est GFR (Non-Af Amer) 45.0 BUN/Creatinine Ratio 10.1 (10-20) Glucose 150 H (70-99) mg/dl Calcium 10.0 (8.5-10.1) mg/dl Magnesium 2.3 (1.8-2.4) mg/dl Total Bilirubin 0.7 (0.2-1) mg/dl AST 29 (15-37) U/L ALT 49 (12-78) U/L Alkaline Phosphatase 135 H (45-117) U/L Total Creatine Kinase 162 (39-308) U/L CK-MB (CK-2) 14.2 H (0.5-3.6) ng/ml CK/CKMB % Calc 8.8 H (0-3.0) POC Troponin I (0-0.045) ng/ml Troponin I 0.806 H* (0-0.045) ng/ml Total Protein 7.4 (6.4-8.2) gm/dl Albumin 3.5 (3.4-5.0) gm/dl Globulin 3.9 (2.5-4.0) gm/dl Albumin/Globulin Ratio 0.9 (0.9-2) TSH 1.700 (0.300-4.500) uIu/ml 08/03/19 Range/Units 00:16 WBC (4.8-10.8) K/uL RBC (4.7-6.1) M/uL Hgb (14.0-18.0) g/dL Hct (42-52) % MCV (80-100) fL MCH (25-34) pg MCHC (32-36) g/dL RDW Std Deviation (36.4-46.3) fL RDW Coeff of Leo (11.5-14.5) % Plt Count (130-400) K/uL MPV (7.4-10.4) fL Immature Gran % (Auto) % Neut % (Auto) % Lymph % (Auto) % [place] % (Auto) % Eos % (Auto) % Baso % (Auto) % Immature Gran # (Auto) (0.00-0.02) K/uL Neut # (Auto) (1.4-6.5) K/uL Lymph # (Auto) (1.2-3.4) K/uL [place] # (Auto) (0.11-0.59) K/uL Eos # (Auto) (0-0.5) K/uL Baso # (Auto) (0-0.2) K/uL PT (9.0-12.0) Seconds INR (0.9-1.1) APTT (21.0-31.0) Seconds PTT Ratio Sodium (136-145) mmol/L Potassium (3.5-5.1) mmol/L Chloride (98-107) mmol/L Carbon Dioxide (21-32) mmol/L Anion Gap (3-11) BUN (7-18) mg/dl Creatinine (0.6-1.4) mg/dl Est Cr Clr Drug Dosing ml/min Est GFR ( Amer) Est GFR (Non-Af Amer) BUN/Creatinine Ratio (10-20) Glucose (70-99) mg/dl Calcium (8.5-10.1) mg/dl Magnesium (1.8-2.4) mg/dl Total Bilirubin (0.2-1) mg/dl AST (15-37) U/L ALT (12-78) U/L Alkaline Phosphatase (45-117) U/L Total Creatine Kinase (39-308) U/L CK-MB (CK-2) (0.5-3.6) ng/ml CK/CKMB % Calc (0-3.0) POC Troponin I 0.38 H (0-0.045) ng/ml Troponin I (0-0.045) ng/ml Total Protein (6.4-8.2) gm/dl Albumin (3.4-5.0) gm/dl Globulin (2.5-4.0) gm/dl Albumin/Globulin Ratio (0.9-2) TSH (0.300-4.500) uIu/ml Imaging Data Attestation: I personally reviewed and interpreted this imaging study as follows: My Impression: No cardiopulmonary process, no effusion infiltrate or pneumothorax. ECG Data Attestation: I personally reviewed and interpreted this ECG as follows: Indication: + chest pain Rate (beats per minute): 83 Rhythm: + sinus rhythm ECG [place]: + Left axis deviation ECG ST segments: + ST depression (inferiorly) and + ST elevation (in V2 and V3 c onsistent with anteroseptal infarct) ECG Findings: + PVCs Comparison ECG Date: from (October 2014) Change: the following changes noted (ST-elevation is new) Additional Comments: PREHOSPITAL EKG: Rate: Sinus rhythm Rhythm: 71 Findings: ST elevation in anterior and lateral leads, ST depression inferiorly, PVC and QRS 86 ms. Blood Pressure Blood Pressure Findings: Elevated blood pressure Blood Pressure Disposition: further management by hospitalist MDM Narrative I did provide prehospital medical command for the patient. I did order nitroglycerin as well as IV fentanyl and Zofran. I did interpret the prehospital EKG as noted above. I did call a heart alert. I did evaluate the patient immediately upon arrival as noted above. The dinkey mechanic states that the patient is a DNR. Additional IV access was established. The patient was placed on a continuous budget counselor. Cardiac monitoring: Indication: STEMI Rate and rhythm: Normal sinus rhythm with a rate of 88. He did have significant ectopy with PVCs. No dysrhythmia. I did order and personally review the patient's 12-lead EKG as described above. He has what appears to be an anterolateral STEMI. He has ST elevations in the anterior lateral leads with reciprocal depressions in inferior leads. The ST elevations in the high lateral leads are significantly improved. I did start the patient on a nitroglycerin drip. He did receive aspirin prior to arrival. I did order and personally reviewed the images of the patient's chest x-ray as described above. He has no cardiopulmonary process. I did order and review the patient's blood work as noted in the electronic medical record. CBC is unremarkable. Creatinine is slightly elevated. Troponin is 0.38. Patient's chest pain was almost completely resolved. Dr. Zarco did evaluate the patient here. He did obtain consent for cardiac catheterization from the patient as well as his son over the telephone. I did obtain records of his cardiac catheterization from the [facility] from 2011 via the embedded case manager. The patient was taken to the cardiac Faculty Instructor. Impression & Plan ST elevation myocardial infarction (STEMI) Discharge Plan Visit Data *Final* Discharge Date/Time: 08/03/19 00:33 Chief Complaint: Chest Pain Stated Complaint: CHEST PAIN ED Provider: Haroon Power Discharge Problem: ST elevation myocardial infarction (STEMI) Patient Disposition: Admitted As Inpatient Discharge Instructions Interventions: ED Discharge Assessment Last Done: 08/03/19 00:33 Discharge Problem: ST elevation myocardial infarction (STEMI) Qualifiers: Involved coronary artery: unspecified coronary artery Qualified Code(s): I21.3 - ST elevation (STEMI) myocardial infarction of unspecified site The leslyibe's documentation has been prepared under my direction and personally reviewed by me in its entirety. I confirm that the note above accurately reflects all work, treatment, procedures, and medical decision making performed by me.
--- NOTE | 2019-08-03 01:45 | Cardiac Catheterization ---
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 Cardiac Status Clinical evaluation leading to the procedure CAD Presenation: Non STEMI Anginal Classification: CCS IV Heart Failure: No Cardiogenic Shock within 24 Hours: No Cardiac Arrest within 24 Hours: No Imaging Studies Past 6 Months: No Stress Studies Past 6 Months: No Diagnostic Physicians Name: Mason Zarco MD Status: Emergency Closure Device Percutaneous Entry Location: Radial Closure Device: Radial Band Recommendations: Medical Therapy and/or Counseling Intraprocedure Events Significant Disection: No Perforation: No Cardiac Cath Procedure Full Procedure Date August 03, 2019 Pre-Procedure Diagnosis Pre-Procedure Diagnosis: Acute Coronary Syndrome AUC Score AUC Score: 8 Post-Procedure Diagnosis Post-Procedure Diagnosis: Severe CAD Procedure(s) Performed Procedure(s) Performed: Coronary Angiography and Left Heart Cath Senior Market Intelligence Consultant Mason Zarco MD Computer Network And Systems Engineer(s) Luisana Estimated Blood Loss Estimated Blood Loss: 10 Medication(s) Medication(s): Fentanyl, Heparin, Lidocaine 1%, Nicardipine, Nitroglycerin and Versed Summary of Findings Indication: Acute coronary syndrome Access: 6 Fr slender right radial artery Catheters: EBU 3.5 guide, diagnostic JR4 Findings: LM -calcified, short, 30% distal disease at bifurcation LAD -moderate caliber, calcified, widely patent proximal stent, 60-70% earlymid segment stenosis, mild diffuse disease in mid to distal LAD as wraps around apex. Large first diagonal with 50 to 60% mid segment disease, moderate caliber second diagonal with severe diffuse disease prior to mid segment occlusion (suspect culprit). Circumflex -95% ostial stenosis, mild to moderate diffuse mid to distal disease. Moderate caliber terminal left PLB with mild disease RCA -dominant, 95% ostial stenosis, mid segment 100% chronically occluded. PDA partially fills via [id number] collaterals. LVEDP -18 Arterial Closure: TR band Summary: 1. Severe multivessel coronary artery disease -Patent proximal LAD stent 70% earlymid stenosis. 60% first diagonal. 100% mid second diagonal (possible acute culprit). 95% ostial circumflex 95% ostial RCA, 100% chronic mid RCA occlusion. PDA fills via [id number] collaterals. 2. Borderline intracardiac filling pressure Recommendations: Patient with severe, chronic multivessel disease not significantly changed from last catheterization here in 2011. Biggest change from then to now is occlusion of mid RCA and second diagonal. Second diagonal may represent acute culprit. Feel attempted intervention to this vessel would be high risk in the setting of patient's comorbidities. Patient was chest pain-free on nitro infusion and will plan to manage his ACS medically. Start clopidogrel Continue heparin infusion for 48 hours Titrate nitro infusion for chest pain, goal SBP less than 130 Titrate beta-blockers Trend troponins, echocardiogram in a.m. Hemodynamics Rest Ao:: 169/73/122 Final Ao: 175/86/120 LV: 169/18 Recommendations Recommendations: Medical Therapy and/or Counseling Specimens Specimens: None Radiation Exposure (mGy) 1511 Contrast (mls) 100 Fluids (cc crystalloids) Fluids (cc crystalloids): 50 Drains Drains: None Anesthesia Moderate Procedural Complication(s) None Disposition ICU I attest to the content of the Intraoperative Record and any orders documented therein. Any exceptions are noted below. [facility] Card Cath Procedure Codes Cardiac Catheterization Procedure 1: Cardiovascular Cath Procedures: 42219 Coronaries and LHC (+/-LV) Moderate Sedation Procedure 1: Sedation/Anesthesia: 04262 Mod Sedation by the same physician;Init15 Min Child Age 5 & Up Procedure 2: Sedation/Anesthesia: 37819 Mod Sedation by the same physician; Ea [id number] Minutes PG Care Time/CCT Total # of Minutes Spent Total Time Spent with Patient: Total time spent is greater than 50% in coordination of care (as documented) at patient's floor/unit and/or counseling patient:
--- NOTE | 2019-08-03 01:56 | Cardiology Consultation ---
Date of Consultation August 03, 2019 Assessment & Plan (1) ACS (acute coronary syndrome): 2. Multivessel coronary artery disease 3. Chronic diastolic heart failure 4. Hypertension 5. Chronic kidney disease At time patient was seen in the ED his lateral ST elevations had resolved after nitroglycerin. Chest pain was improved but persisted. He was hypertensive with systolic blood pressures up in the 180s. In the setting of ongoing chest pain discussed options including medical management versus cardiac catheterization with possible PCI. Discussed options with son by phone as well. Decision was made to proceed with coronary angiography. Found to have severe multivessel disease with patent proximal LAD stent. Mid RCA was now occluded with [id number] collaterals. Second diagonal also occluded and was thought potentially to be culprit vessel. Intervention thought to be elevated risk and as patient was chest pain-free on nitroglycerin infusion decision made to manage medically. Going forward: We will admit to ICU Trend troponins, check echocardiogram in a.m. Continue nitroglycerin infusion Heparin infusion for 48 hours Load with clopidogrel and continue DAPT for 1 year Titrate up beta-yesi Continue home amlodipine, resume long-acting oral nitrate Continue home statin. Patient and son reaffirmed DNR/DNI. History of Present Illness Attending Physician: Mason Zarco MD History of Present Illness Mr. Wilson is a pleasant 79-year-old man with a history of severe multivessel coronary artery disease post prior PCI to his proximal LAD with 3.0 x 12 mm bare-metal stent, chronic diastolic heart failure, stage III chronic kidney disease, hypertension, dyslipidemia admitted in the setting of acute coronary syndrome. Patient is followed by Dr. Sifuentes as an outpatient. Had a prior [place] in July 2012. At that time underwent cardiac catheterization which revealed high-grade proximal LAD disease, occluded circumflex and 90+% ostial mid and distal RCA disease. Was evaluated at [facility] for possible CABG thought not to be surgical candidate and was treated with PCI as above. Since that time has been stable on antianginal therapy. This evening approximately an hour before arrival patient states developed left- sided chest pain that persisted. States this is different than his usual angina pain which comes and goes away quickly. Was associated with shortness of breath some nausea. EKG in route showed anterolateral ST elevations and heart alert was activated from the field. After nitro lateral ST elevations resolved on presenting EKG. Chest pain improved down from 9 out of 10 to 3 out of 10 at time of interview. Allergies Allergy/AdvReac Type Severity Reaction Status Date / Time No Known Allergies Allergy Unknown Verified 08/03/19 00:25 Home Medications Home Medications Medication Instructions Recorded Confirmed Type isosorbide mononitrate 120 mg 240 mg PO DAILY #180 tab 04/01/19 08/03/19 Rx tablet,extended release 24 hr amlodipine 10 mg tablet 10 mg PO DAILY 06/09/19 08/03/19 History aspirin 81 mg tablet,delayed 81 mg PO DAILY 06/09/19 08/03/19 History release atenolol 100 mg tablet 100 mg PO DAILY 06/09/19 08/03/19 History atorvastatin 80 mg tablet 80 mg PO DAILY #90 tab 06/09/19 08/03/19 Rx docusate sodium 100 mg capsule 100 mg PO DAILY 06/09/19 08/03/19 History furosemide 20 mg tablet 20 mg PO DAILY tab 06/09/19 08/03/19 History glimepiride 2 mg tablet 2 mg PO QAM 06/09/19 08/03/19 History nitroglycerin 0.4 mg sublingual See Rx Instructions SL Q5M PRN 06/09/19 08/03/19 History tablet ranitidine HCl 150 mg capsule 150 mg PO BID 06/09/19 08/03/19 History Patient History Medical History CHF (congestive heart failure), NYHA class III (Acute 10/05/14) Elevated troponin (Acute) Generalized weakness (Acute) Myocardial infarction Surgical History Hx of heart artery stent Social History Communication Ability: Impaired Beliefs That Will Affect Care: None Current Living Situation: Family Feels Safe at Home: Yes Safety Concerns: Feels Safe At This Time Smoking Status: Former smoker Hx Substance Use: No Review of Systems Review of Systems: All systems reviewed & are unremarkable except as noted in HPI & below Physical Exam Physical Exam: General: Comfortable, no acute distress Eyes: Sclerae anicteric, extraocular movements intact HENT: Oropharynx clear mucous membranes moist Lungs: Clear to auscultation bilaterally Cardiac: Regular rate and rhythm, no murmurs Vascular: 2+ radial Abdomen: Soft, nontender, nondistended, positive bowel sounds. Extremities: Well perfused, no peripheral edema Skin: No rashes or lesions. Neuro: Nonfocal Psych: Alert orient x3, normal affect and mood Results & Data Vital Signs (Past 12 Hours) Vital Signs Temp Pulse Resp BP Pulse Ox 08/03/19 00:22 93 H 17 191/93 H 91 08/03/19 00:21 84 16 192/96 H 95 08/03/19 00:20 86 25 H 95 08/03/19 00:10 87 24 95 08/03/19 00:06 88 3 L 97 08/03/19 00:04 82 16 195/102 H 97 08/03/19 00:03 98.1 F 84 15 195/110 H 96 PG Care Time/CCT Total # of Minutes Spent Total Time Spent with Patient: Total time spent is greater than 50% in coordination of care (as documented) at patient's floor/unit and/or counseling patient:
[2019-08-03] MEDS ORDERED: Heparin IV Low Dose *NO* Bolus IV ONE (01:57)
--- NOTE | 2019-08-03 02:25 | History & Physical Report ---
Date of Service August 03, 2019 Assessment & Plan (1) ACS (acute coronary syndrome): Patient is a pleasant 79yo M PMH chronic diastolic CHF, CKD III, HTN, HLD, CAD s/p bare metal stent of LAD (2011), admitted for STEMI. ACS/STEMI -Appreciate cardiology input -Transferred to ICU from lab[employer] -Echo ordered for AM -Trend trops -Pt ordered heparin drip x 48 hours and nitroglycerin infusion -Pt loaded with plavix; DAPT rec'd x 1 year -Titrate home meds, including BB, amlodipine, nitrate, statin Hx of stent, 2012 -Pt poor candidate for CABG CHF, NYHA III -Echo ordered for AM CKD III -Cr stable; cont to monitor HTN/HLD -titrate meds as tolerated as above Code: DNR/DNI Dispo: ICU admit DVTP: heparin drip x 48 hrs per cardiology (2) ST elevation myocardial infarction (STEMI): (3) Hx of heart artery stent: (4) CHF (congestive heart failure), NYHA class III: (5) CKD (chronic kidney disease), stage III: (6) HTN (hypertension): (7) Hyperlipidemia: History of Present Illness Chief Complaint: STEMI Primary Care Provider: Mp Sanchez MD Patient is a pleasant 79yo M PMH chronic diastolic CHF, CKD III, HTN, HLD, CAD s/p bare metal stent of LAD (2011). After PCI in 2011, patient was evaluated for CABG, but was deemed to not be a candidate. Family not present at time of interview, thus history provided by staff involved in case. Patient presented this evening as a heart alert from the field. Reportedly, he was experiencing sharp, L sided chest pain 1 hour prior to arrival. Patient has history of anginal pain which comes and goes but this pain was persistent. This was a/w some dyspnea and nausea. Patient denies feeling lightheaded, ass'd palpitations. Unclear whether this was a/w exertion or not. EKG from the field showed ant/lateral ST elevation. These resolved after nitro administration, but his chest pain did not resolve therefore he was taken to cardiac laborer chemical processing. He was found to have severe multivessel disease with patent prox LAD stent. Mid RCA and 2nd diagonal occlusion. Intervention was felt to be high risk, and therefore plan is to manage medically. He was transferred to ICU for further evaluation. Allergies Allergy/AdvReac Type Severity Reaction Status Date / Time No Known Allergies Allergy Unknown Verified 08/03/19 00:25 Home Medications Home Medications Medication Instructions Recorded Confirmed Type isosorbide mononitrate 120 mg 240 mg PO DAILY #180 tab 04/01/19 08/03/19 Rx tablet,extended release 24 hr amlodipine 10 mg tablet 10 mg PO DAILY 06/09/19 08/03/19 History aspirin 81 mg tablet,delayed 81 mg PO DAILY 06/09/19 08/03/19 History release atenolol 100 mg tablet 100 mg PO DAILY 06/09/19 08/03/19 History atorvastatin 80 mg tablet 80 mg PO DAILY #90 tab 06/09/19 08/03/19 Rx docusate sodium 100 mg capsule 100 mg PO DAILY 06/09/19 08/03/19 History furosemide 20 mg tablet 20 mg PO DAILY tab 06/09/19 08/03/19 History glimepiride 2 mg tablet 2 mg PO QAM 06/09/19 08/03/19 History nitroglycerin 0.4 mg sublingual See Rx Instructions SL Q5M PRN 06/09/19 08/03/19 History tablet ranitidine HCl 150 mg capsule 150 mg PO BID 06/09/19 08/03/19 History Past Med/Surg History Medical History CHF (congestive heart failure), NYHA class III (Acute 10/05/14) Elevated troponin (Acute) Generalized weakness (Acute) Myocardial infarction Surgical History Hx of heart artery stent Social History Communication Ability: Impaired Beliefs That Will Affect Care: None Current Living Situation: Family Feels Safe at Home: Yes Safety Concerns: Feels Safe At This Time Smoking Status: Former smoker Hx Substance Use: No Review of Systems Review of Systems: All systems reviewed & are unremarkable except as noted in HPI & below 10 systems reviewed and patient denies any symptoms Physical Exam Constitutional: WD/WN, vitals as above Eyes: PERRL, conjunctivae normal, anicteric sclerae ENMT: external ear and nose normal, oropharynx normal Ears: + hearing impairment Speaks slowly Neck: normal visual inspection Respiratory: normal respiratory effort, lungs clear to auscultation Cardiovascular: RRR, no murmur, no edema Gastrointestinal (Abdomen): normal bowel sounds, soft, nontender, no hepatosplenomegaly Musculoskeletal: no cyanosis or clubbing, extremities motor strength 5/5 Skin: no rashes, warm and dry Psychiatric: A+Ox3, euthymic affect Results & Data Vital Signs (Past 12 Hours) Vital Signs Temp Pulse Resp BP Pulse Ox 08/03/19 00:22 93 H 17 191/93 H 91 08/03/19 00:21 84 16 192/96 H 95 08/03/19 00:20 86 25 H 95 08/03/19 00:10 87 24 95 08/03/19 00:06 88 3 L 97 08/03/19 00:04 82 16 195/102 H 97 08/03/19 00:03 98.1 F 84 15 195/110 H 96 Laboratory Results 08/03/19 08/03/19 08/03/19 Range/Units 02:14 00:16 00:14 WBC (4.8-10.8) K/uL RBC (4.7-6.1) M/uL Hgb (14.0-18.0) g/dL Hct (42-52) % MCV (80-100) fL MCH (25-34) pg MCHC (32-36) g/dL RDW Std Deviation (36.4-46.3) fL RDW Coeff of Leo (11.5-14.5) % Plt Count (130-400) K/uL MPV (7.4-10.4) fL Immature Gran % (Auto) % Neut % (Auto) % Lymph % (Auto) % Harrison % (Auto) % Eos % (Auto) % Baso % (Auto) % Immature Gran # (Auto) (0.00-0.02) K/uL Neut # (Auto) (1.4-6.5) K/uL Lymph # (Auto) (1.2-3.4) K/uL Harrison # (Auto) (0.11-0.59) K/uL Eos # (Auto) (0-0.5) K/uL Baso # (Auto) (0-0.2) K/uL PT (9.0-12.0) Seconds INR (0.9-1.1) APTT (21.0-31.0) Seconds PTT Ratio Sodium 137 (136-145) mmol/L Potassium 3.9 (3.5-5.1) mmol/L Chloride 104 (98-107) mmol/L Carbon Dioxide 26 (21-32) mmol/L Anion Gap 7.0 (3-11) BUN 15 (7-18) mg/dl Creatinine 1.47 H (0.6-1.4) mg/dl Est Cr Clr Drug Dosing 43.7 ml/min Est GFR ( Amer) 52.2 Est GFR (Non-Af Amer) 45.0 BUN/Creatinine Ratio 10.1 (10-20) Glucose 150 H (70-99) mg/dl Calcium 10.0 (8.5-10.1) mg/dl Magnesium 2.3 (1.8-2.4) mg/dl Total Bilirubin 0.7 (0.2-1) mg/dl AST 29 (15-37) U/L ALT 49 (12-78) U/L Alkaline Phosphatase 135 H (45-117) U/L Total Creatine Kinase 162 (39-308) U/L CK-MB (CK-2) 14.2 H (0.5-3.6) ng/ml CK/CKMB % Calc 8.8 H (0-3.0) POC Troponin I 0.38 H (0-0.045) ng/ml Troponin I 0.806 H* (0-0.045) ng/ml Total Protein 7.4 (6.4-8.2) gm/dl Albumin 3.5 (3.4-5.0) gm/dl Globulin 3.9 (2.5-4.0) gm/dl Albumin/Globulin Ratio 0.9 (0.9-2) TSH 1.700 (0.300-4.500) uIu/ml Nasal Screen MRSA (PCR) Pending 08/03/19 08/03/19 Range/Units 00:14 00:14 WBC 7.94 (4.8-10.8) K/uL RBC 5.51 (4.7-6.1) M/uL Hgb 17.5 (14.0-18.0) g/dL Hct 50.8 (42-52) % MCV 92.2 (80-100) fL MCH 31.8 (25-34) pg MCHC 34.4 (32-36) g/dL RDW Std Deviation 43.6 (36.4-46.3) fL RDW Coeff of Leo 12.9 (11.5-14.5) % Plt Count 173 (130-400) K/uL MPV 11.4 H (7.4-10.4) fL Immature Gran % (Auto) 0.1 % Neut % (Auto) 66.2 % Lymph % (Auto) 21.0 % Harrison % (Auto) 8.6 % Eos % (Auto) 3.8 % Baso % (Auto) 0.3 % Immature Gran # (Auto) 0.01 (0.00-0.02) K/uL Neut # (Auto) 5.26 (1.4-6.5) K/uL Lymph # (Auto) 1.67 (1.2-3.4) K/uL Harrison # (Auto) 0.68 H (0.11-0.59) K/uL Eos # (Auto) 0.30 (0-0.5) K/uL Baso # (Auto) 0.02 (0-0.2) K/uL PT 10.9 (9.0-12.0) Seconds INR 1.1 (0.9-1.1) APTT 27.0 (21.0-31.0) Seconds PTT Ratio 1.0 Sodium (136-145) mmol/L Potassium (3.5-5.1) mmol/L Chloride (98-107) mmol/L Carbon Dioxide (21-32) mmol/L Anion Gap (3-11) BUN (7-18) mg/dl Creatinine (0.6-1.4) mg/dl Est Cr Clr Drug Dosing ml/min Est GFR ( Amer) Est GFR (Non-Af Amer) BUN/Creatinine Ratio (10-20) Glucose (70-99) mg/dl Calcium (8.5-10.1) mg/dl Magnesium (1.8-2.4) mg/dl Total Bilirubin (0.2-1) mg/dl AST (15-37) U/L ALT (12-78) U/L Alkaline Phosphatase (45-117) U/L Total Creatine Kinase (39-308) U/L CK-MB (CK-2) (0.5-3.6) ng/ml CK/CKMB % Calc (0-3.0) POC Troponin I (0-0.045) ng/ml Troponin I (0-0.045) ng/ml Total Protein (6.4-8.2) gm/dl Albumin (3.4-5.0) gm/dl Globulin (2.5-4.0) gm/dl Albumin/Globulin Ratio (0.9-2) TSH (0.300-4.500) uIu/ml Nasal Screen MRSA (PCR) Code Status & VTE Plan Code Status DNR/DNI VTE Prophylaxis Plan VTE Prophylaxis will be ordered: Yes Supervising Physician Co-Signing Physician Notes Patient was seen and examined by me personally. I reviewed the chart, the orders and discussed the case in detail with Dr. She Dalton MD . I read this H&P and agree with its contents to entirety. Resident Activity Tracking Resident Involvement: Resident Care Provided Care Provided: Adult Hospital Medicine (1) ST elevation myocardial infarction (STEMI) Involved coronary artery: unspecified coronary artery Qualified Code(s): I21.3 - ST elevation (STEMI) myocardial infarction of unspecified site
[2019-08-03] MEDS ORDERED: HEPARIN 25000 UNIT/500 ML D5W IV ONE (02:27)
[2019-08-03] MEDS: HEPARIN SODIUM/DEXTROSE 25,000 UNITS/500 ML BAG IV SCH ×2 (02:48)
--- NOTE | 2019-08-03 03:32 | Critical Care Consultation ---
Date of Consultation August 03, 2019 Assessment & Plan (1) Admitted to intensive care unit: Reason Critically Ill: 79-year-old male with a significant history of severe coronary artery disease presenting with acute ST segment elevation myocardial infarction status post cardiac catheterization with plan medical management for severe disease. Remains on nitroglycerin and heparin drips. NEURO - * CAM ICU: NEGATIVE CARDIAC/VASCULAR - * Acute STEMI s/p catheterization: * Severe multivessel disease. * Medical management per interventional list. * Remains on heparin and nitroglycerin drips. * Titrate nitroglycerin down to off. * ASCVD per typical. * Continue home medications. * EKG: SRw/PVCs@83bpm, ST elevations anteriorly. QTc 465ms. * Monitor on telemetry. RESPIRATORY - * Saturating well on room air. * Monitor closely for signs/symptoms of CHF. GI/NUTRITION - * Heart healthy diet * Prophylaxis: Zantac RENAL/LYTES - * FADI on CKD. * NSS@100mL/hr for a total of 1000mL * Monitor lytes. Replace appropriately. - * BPH * Straight cath if needed. ENDO - * No h/o DM * BSGs per unit protocol. ISS --> gtt per unit policy. HEME - * Stable H&H ID - * No concerns for infection at this time. LINES/IV ACCESS - * PIVs x3 DVT PROPHYLAXIS - * Heparin gtt currently. * SCDs I have personally spent 35 minutes of critical care time in the direct management of this patient. This is a life/limb threatening event. This includes time spent evaluating patient, direct bedside care, chart review, placing orders, interpretation of diagnostic studies, discussion with consultants, patient, and family members, as well as other required patient management activities. This time is exclusive of all separately billable procedures, and teaching time and separate from and in addition to any other critical care service time. Thank you for allowing us to participate in the care of this patient. Please refer to my attending physician's documentation for any further recommendations. (2) S/P cardiac catheterization: (3) ACS (acute coronary syndrome): (4) CKD (chronic kidney disease), stage III: (5) HTN (hypertension): (6) Hyperlipidemia: (7) FADI (acute kidney injury): (8) Non-sustained ventricular tachycardia: (9) Hx of heart artery stent: (10) ST elevation myocardial infarction (STEMI): Supervising Physician Co-Signing Physician Notes I have personally evaluated and examined this patient. I agree with assessment and plan of Estela Walker PA-C. Please see my resident documentation for my evaluation. History of Present Illness Attending Physician: Jeff Carrasco DO History of Present Illness Patient is a 79-year-old male with a significant past medical history of CHF, CKD 3, hypertension, hyperlipidemia, coronary artery disease who presented to the emergency department with ongoing chest pain with radiation to his arms. He had taken nitroglycerin and received additional doses in route to the emergency department. Nitroglycerin did provide some relief of pain, however it continued to persist despite resolution of EKG changes consistent with ST IVAN. Patient was taken emergently to the catheterization suite. Upon evaluation he was found to have severe multivessel disease and high risk for intervention. Patient is to be medically managed. Currently on nitroglycerin drip and heparin drip. He is pain-free. On evaluation, the patient is awake, alert, and oriented. He states that he is without chest pain at this time. He offers no other complaints. Allergies Allergy/AdvReac Type Severity Reaction Status Date / Time No Known Allergies Allergy Unknown Verified 08/03/19 00:25 Home Medications Home Medications Medication Instructions Recorded Confirmed Type isosorbide mononitrate 120 mg 240 mg PO DAILY #180 tab 04/01/19 08/03/19 Rx tablet,extended release 24 hr amlodipine 10 mg tablet 10 mg PO DAILY 06/09/19 08/03/19 History aspirin 81 mg tablet,delayed 81 mg PO DAILY 06/09/19 08/03/19 History release atenolol 100 mg tablet 100 mg PO DAILY 06/09/19 08/03/19 History atorvastatin 80 mg tablet 80 mg PO DAILY #90 tab 06/09/19 08/03/19 Rx docusate sodium 100 mg capsule 100 mg PO DAILY 06/09/19 08/03/19 History furosemide 20 mg tablet 20 mg PO DAILY tab 06/09/19 08/03/19 History glimepiride 2 mg tablet 2 mg PO QAM 06/09/19 08/03/19 History nitroglycerin 0.4 mg sublingual See Rx Instructions SL Q5M PRN 06/09/19 08/03/19 History tablet ranitidine HCl 150 mg capsule 150 mg PO BID 06/09/19 08/03/19 History Patient History Medical History CHF (congestive heart failure), NYHA class III (Acute 10/05/14) Elevated troponin (Acute) Generalized weakness (Acute) Myocardial infarction Surgical History Hx of heart artery stent Social History Communication Ability: Effective Beliefs That Will Affect Care: None Current Living Situation: Family Feels Safe at Home: Yes Safety Concerns: Feels Safe At This Time Smoking Status: Former smoker Hx Substance Use: No Review of Systems Review of Systems: A complete 10 point review of systems was reviewed with the patient with pertinent positives and negatives as per history of present illness. All else were negative. Physical Exam Physical Exam: VITAL SIGNS - Vital signs and nursing notes were reviewed. GENERAL - 79-year-old male appearing his stated age who is in no acute distress. Communicates well with provider and answers questions appropriately. HEAD - NC/AT. EYES - PERRL with EOMI bilaterally. Sclera anicteric. MOUTH/OROPHARYNX - Without perioral cyanosis. NECK - Neck with FROM. Supple to palpation. LUNGS - Chest wall symmetric without accessory muscle use, intercostals retractions, or central cyanosis. Normal vesicular breath sounds CTA B/L. No wheezes, rales, or rhonchi appreciated. CARDIAC - RRR with S1/S2. No murmur, rubs, or gallops appreciated. No reproducible tenderness to palpation appreciated over the anterior chest wall. ABDOMEN - Abdominal contour flat without pulsations or visible masses. BS normoactive all four quadrants. No tenderness, palpable masses, hepatosplenomegaly, or ascites noted. EXTREMITIES - No clubbing or peripheral cyanosis. No pretibial edema present. +3/5 radial and dorsalis pedis pulses palpated throughout. +5/5 strength noted in UE/LE bilaterally. NEUROLOGIC - Cranial nerves II through XII grossly intact. Sensory intact to light touch throughout. PSYCH - A&Ox3 and cooperates fully with examiner. Pt is very pleasant and interacts well with examiner. Results & Data Vital Signs (Past 12 Hours) Vital Signs Temp Pulse Pulse Resp BP BP Pulse Ox 08/03/19 03:15 76 72 18 176/104 H 98 08/03/19 03:11 72 16 167/106 H 98 08/03/19 03:00 76 21 167/106 H 98 08/03/19 02:50 73 16 97 08/03/19 02:45 77 17 166/97 H 97 08/03/19 02:40 76 98 08/03/19 02:30 77 164/103 H 96 08/03/19 02:20 81 95 08/03/19 02:15 76 161/94 H 94 08/03/19 02:10 75 95 08/03/19 02:00 76 162/95 H 96 08/03/19 01:56 79 16 163/103 H 98 08/03/19 01:41 36.7 C 76 16 161/94 H 98 08/03/19 01:26 68 16 161/95 H 98 08/03/19 01:20 81 16 164/103 H 98 08/03/19 00:22 93 H 17 191/93 H 91 08/03/19 00:21 84 16 192/96 H 95 08/03/19 00:20 86 25 H 95 08/03/19 00:10 87 24 95 08/03/19 00:06 88 3 L 97 08/03/19 00:04 82 16 195/102 H 97 08/03/19 00:03 36.7 C 84 15 195/110 H 96 Pulse Ox 08/03/19 03:15 98 08/03/19 03:11 08/03/19 03:00 08/03/19 02:50 08/03/19 02:45 08/03/19 02:40 08/03/19 02:30 08/03/19 02:20 08/03/19 02:15 08/03/19 02:10 08/03/19 02:00 08/03/19 01:56 08/03/19 01:41 08/03/19 01:26 08/03/19 01:20 08/03/19 00:22 08/03/19 00:21 08/03/19 00:20 08/03/19 00:10 08/03/19 00:06 08/03/19 00:04 08/03/19 00:03 Coding Level of Care Code Critical Care 1st 30-74 mins Diagnoses Admitted to intensive care unit Z78.9 S/P cardiac catheterization Z98.890 ACS (acute coronary syndrome) I24.9 CKD (chronic kidney disease), stage III N18.3 HTN (hypertension) I10 Hyperlipidemia E78.5 FADI (acute kidney injury) N17.9 Non-sustained ventricular tachycardia I47.2 Hx of heart artery stent Z95.5 ST elevation myocardial infarction (STEMI) I21.3 Involved coronary artery: unspecified coronary artery Time Spent (min) 35 (1) ST elevation myocardial infarction (STEMI) Involved coronary artery: unspecified coronary artery Qualified Code(s): I21.3 - ST elevation (STEMI) myocardial infarction of unspecified site
[2019-08-03 04:14] LABS: Appearance Urine Clear (Clear); Bacteria Urine Automated Negative (Negative); Bilirubin Urine Negative (Negative); Blood Urine 1+ (Negative); Cast Urine Automated 0 /lpf (0-5); Color Urine Yellow; Glucose Urine UA Trace (Negative); Ketones Urine Trace (Negative); Leukocyte Esterase Urine Negative (Negative); Nitrite Urine Negative (Negative); RBC Urine Automated 0-4 /hpf (0-4); Specific Gravity Urine 1.025 (1.000-1.030); Urobilinogen Urine Negative (Negative); WBC Urine Automated 0 /hpf (0-5); pH Urine 7.5 (4.5-7.5)
[2019-08-03 04:26] LABS: Protein Urine Negative (Negative); Sulfosalicylic Acid Urine Negative (Negative)
--- NOTE | 2019-08-03 04:45 | Billing Data ---
Coding Level of Care Code 17400 Initial Inpt Care Lvl 3
[2019-08-03] MEDS ORDERED: INFLUENZA Vaccine HIGH DOSE 65+yrs 0.5 mL Syr IM ONE (05:45)
[2019-08-03] MEDS ORDERED: PNEUMOCOCCAL Polysaccharide Vaccine 25mcg/0.5mL vial/Syr IM ONE (05:45)
--- NOTE | 2019-08-03 07:24 | XRay Report ---
XR chest 1V portable CLINICAL HISTORY: Chest pain dyspnea COMPARISON STUDY: 10/05/2014 FINDINGS: Mild prominence of the pulmonary vasculature. Diaphragms are smooth. There are no focal inf iltrative changes. IMPRESSION: Prominent pulmonary vasculature. Otherwise negative study. The above report was generated using voice recognition software. It may contain grammatical, syntax or spelling errors. Electronically signed by: Jay Rocha M.D. 08/03/2019 7:23 AM
[2019-08-03 08:47] LABS: Basophils # (auto) 0.03 K/uL (0-0.2); Basophils % (auto) 0.4 %; Eosinophils # (auto) 0.19 K/uL (0-0.5); Eosinophils % (auto) 2.7 %; Hematocrit (blood only) 49.8 % (42-52); Hemoglobin 17.2 g/dL (14.0-18.0); Immature Granulocytes # (auto) 0.01 K/uL (0.00-0.02); Immature Granulocytes % (auto) 0.1 %; Lymphocytes # (auto) 1.08 K/uL (1.2-3.4); Lymphocytes % (auto) 15.6 %; Mean Corpuscular Hemoglobin 32.1 pg (25-34); Mean Corpuscular Hgb Conc 34.5 g/dL (32-36); Mean Corpuscular Volume 93.1 fL (80-100); Mean Platelet Volume 11.2 fL (7.4-10.4); Monocytes # (auto) 0.74 K/uL (0.11-0.59); Monocytes % (auto) 10.7 %; Neutrophils # (auto) 4.89 K/uL (1.4-6.5); Neutrophils % (auto) 70.5 %; Platelet Count 167 K/uL (130-400); RDW Standard Deviation 43.9 fL (36.4-46.3); Red Blood Count 5.35 M/uL (4.7-6.1); White Blood Count 6.94 K/uL (4.8-10.8)
--- NOTE | 2019-08-03 09:01 | Critical Care Progress Note ---
Date of Service August 03, 2019 Assessment & Plan (1) Admitted to intensive care unit: Reason Critically Ill: 79-year-old male here with a PMHx significant for severe multivessel CAD, HTN, CKD3, CHF class 3 who presented with 1 hour of acute chest pain and who was admitted for ACS. Neuro - [facility] ICU: Negative Analgesia: Nitro drip titrated to chest pain as below Increase speech latency Per family patient has slow speech and increased latency of thought at baseline. Discussed with patient, he reports that his speech feels normal for him today. He is oriented to name, but is not oriented to place. Neurologic exam does not show focal deficits, strength and cranial nerve exam is intact. Some R facial asymmetry and proptosis was appreciated at rest, however this corrects when patient is more alert and on physical exam testing. Low suspicion for acute intracerebral pathology at this time, defer imaging. Cardiac - Acute ST elevation NE status post catheterization Severe multivessel disease. Proximal LAD stent patent, mid RCA occluded with collaterals, second diagonal appears to be acutely occluded. EKG on admission with anterior ST elevations and QTc 465ms Not a surgical/CABG candidate Medical management Wean nitro drip, titrate to pain (not blood pressure) Continue amlodipine 10 mg daily Continue DAPT (ASA/Plavix) for 1 year Continue atorvastatin 80 mg daily Continue heparin drip for total of 48 hours Trend troponins. Acutely elevated to 50s today. Continue metoprolol tartrate 50 mg twice daily -FERNANDO held in the setting of FADI CHF Cardiac management as above FERNANDO held in the setting of FADI Respiratory - No acute concerns Adequate SPO2 on room air GI - Heart healthy diet Ulcer prophylaxis: Ranitidine 150 mg p.o. twice daily RENAL/LYTES - FADI on CKD Creatinine acutely elevated to 1.47 Held FERNANDO as above BMP daily Replace electrolytes per protocol - No acute concerns ENDO - No history of type 2 diabetes mellitus BSG is in 100s, adequate glycemic control Continue ICU hyperglycemic protocol HEME - Stable H&H. Will monitor for any drops in the setting of Heparin gtt Hemoglobin 17.2 ID - No concerns for infection at this time INTEGUMENTARY - No acute concerns LINES/IV ACCESS - PIVs intact. DVT PROPHYLAXIS - Heparin GTT Disposition: Anticipate downgrade if continues to remain stable and nitro drip is weaned Thank you for allowing us to be part of this patient's care. Please refer to Dr. Jaffe's documentation for any further recommendations. (2) S/P cardiac catheterization: (3) Non-sustained ventricular tachycardia: (4) FADI (acute kidney injury): (5) Hyperlipidemia: (6) HTN (hypertension): (7) CKD (chronic kidney disease), stage III: (8) ACS (acute coronary syndrome): (9) Hx of heart artery stent: (10) ST elevation myocardial infarction (STEMI): Supervising Physician Co-Signing Physician Notes Dr. Frye was resident physician during care of patient. I separately evaluated patient for connor portions of the history and the exam. I was present during the critical portion of medical decision making, and I discussed the case with the resident. I generally agree with the findings and plan. Patient currently chest pain-free will wean off nitroglycerin, continue heparin, cardiac disease not amenable to aggressive interventions medical management only. Patient has experienced nonsustained ventricular tachycardia. Currently hemodynamics appear to be reassuring. Subjective Parminder seen at the bedside this morning. He is awake, and is in no acute distress. He has increased speech latency, however thought processes are linear and goal-directed and he is able to follow one and two-step commands. He is not oriented to place or date. Per family his speech pattern and delay is baseline for him. He does not have any chest pain this morning, reports he feels "okay ". Voices no questions or concerns. Review of Systems Review of Systems: Constitutional: Denies fever, chills Eyes: Denies vision change, blurry vision ENT: Denies throat pain, cough, congestion Cardiovascular: Denies Chest pain, chest pressure, palpitations Respiratory: Denies shortness of breath, cough, sputum production, difficulty breathing Gastrointestinal: Denies abdominal pain, nausea, vomiting, constipation, diarrhea Genitourinary: Denies pain with urination Musculoskeletal: Denies muscle aches/pain, joint aches/pain Integumentary:Denies rash, lesions, bruising Neurological: Denies headache, numbness, tingling, focal weakness Physical Exam Physical Exam: General: Oriented to name only. NAD. Cooperative. HEENT: Atraumatic, normocephalic. Right-sided proptosis and mild right lip droop at rest which corrects with attention and on physical exam testing. Pulm: CTAB A&P. -wheezes, -rales, -rhonchi. Symmetrical chest rise. No increase work of breathing. No respiratory distress. Cardiac: RRR, -mrg. Radial pulses intact and symmetrical. Abdominal:Softly distended, bowel sounds intact. BS present. Extremities: Lathe Tender strength, finger flexion/extension, elbow flexion/extension, shoulder internal rotation/external rotation, hip flexion, ankle plantar flexion/dorsiflexion 5/5 strength and symmetrical. CN II: Visual blanc are full to confrontation. Pupils are equal and react to light and accomidation. Visual acuity grossly intact. CN III, IV, : At primary gaze, there is no eye deviation. EoM intact without nystagmus. No visual field cuts. CN V: Facial sensation is intact to soft touch in all 3 divisions bilaterally. CN VII: No facial asymmetry, full strength to smile, eye close, and cheek puff. Patient reports he is not able to raise his eyebrows at baseline. CN VII: Hearing is grossly intact. CN IX, X: Palate elevates symmetrically. Phonation intact, but with increased beach delay. CN XI: shoulder shrug are intact CN XII: Tongue protrudes midline. Results & Data Vital Signs (Past 12 Hours) Vital Signs Temp Pulse Pulse Resp BP BP Pulse Ox 08/03/19 07:00 53 L 16 164/95 H 96 08/03/19 06:10 54 L 96 08/03/19 06:00 54 L 160/100 H 96 08/03/19 05:50 50 L 97 08/03/19 05:45 52 L 140/84 96 08/03/19 05:40 49 L 98 08/03/19 05:31 60 157/98 H 97 08/03/19 05:30 56 L 93 08/03/19 05:20 50 L 97 08/03/19 05:15 50 L 144/86 H 97 08/03/19 05:10 54 L 96 08/03/19 05:00 48 L 55 L 16 139/86 160/100 H 97 08/03/19 04:50 49 L 96 08/03/19 04:45 50 L 146/89 H 96 08/03/19 04:40 51 L 96 08/03/19 04:30 57 L 155/90 H 95 08/03/19 04:20 52 L 96 08/03/19 04:15 53 L 163/94 H 97 08/03/19 04:11 51 L 16 163/94 H 98 08/03/19 04:10 59 L 96 08/03/19 04:00 57 L 161/103 H 98 08/03/19 03:50 53 L 98 08/03/19 03:45 58 L 158/92 H 97 08/03/19 03:40 67 97 08/03/19 03:32 36.8 C 65 15 164/98 H 08/03/19 03:30 68 164/98 H 98 08/03/19 03:20 74 15 98 08/03/19 03:15 77 72 16 176/104 H 176/104 H 98 08/03/19 03:11 72 16 167/106 H 98 08/03/19 03:10 83 17 98 08/03/19 03:00 76 21 167/106 H 98 08/03/19 02:50 73 16 97 08/03/19 02:45 77 17 166/97 H 97 08/03/19 02:40 76 98 08/03/19 02:30 77 164/103 H 96 08/03/19 02:20 81 95 08/03/19 02:15 76 161/94 H 94 08/03/19 02:10 75 95 08/03/19 02:00 76 162/95 H 96 08/03/19 01:56 79 16 163/103 H 98 08/03/19 01:41 36.7 C 76 16 161/94 H 98 08/03/19 01:26 68 16 161/95 H 98 08/03/19 01:20 81 16 164/103 H 98 08/03/19 00:22 93 H 17 191/93 H 91 08/03/19 00:21 84 16 192/96 H 95 08/03/19 00:20 86 25 H 95 08/03/19 00:10 87 24 95 08/03/19 00:06 88 3 L 97 08/03/19 00:04 82 16 195/102 H 97 08/03/19 00:03 36.7 C 84 15 195/110 H 96 Pulse Ox 08/03/19 07:00 08/03/19 06:10 08/03/19 06:00 08/03/19 05:50 08/03/19 05:45 08/03/19 05:40 08/03/19 05:31 08/03/19 05:30 08/03/19 05:20 08/03/19 05:15 08/03/19 05:10 08/03/19 05:00 08/03/19 04:50 08/03/19 04:45 08/03/19 04:40 08/03/19 04:30 08/03/19 04:20 08/03/19 04:15 08/03/19 04:11 08/03/19 04:10 08/03/19 04:00 08/03/19 03:50 08/03/19 03:45 08/03/19 03:40 08/03/19 03:32 08/03/19 03:30 08/03/19 03:20 08/03/19 03:15 98 08/03/19 03:11 08/03/19 03:10 08/03/19 03:00 08/03/19 02:50 08/03/19 02:45 08/03/19 02:40 08/03/19 02:30 08/03/19 02:20 08/03/19 02:15 08/03/19 02:10 08/03/19 02:00 08/03/19 01:56 08/03/19 01:41 08/03/19 01:26 08/03/19 01:20 08/03/19 00:22 08/03/19 00:21 08/03/19 00:20 08/03/19 00:10 08/03/19 00:06 08/03/19 00:04 08/03/19 00:03 Resident Activity Tracking Resident Involvement: Resident Care Provided Care Provided: Adult Hospital Medicine (1) ST elevation myocardial infarction (STEMI) Involved coronary artery: unspecified coronary artery Qualified Code(s): I21.3 - ST elevation (STEMI) myocardial infarction of unspecified site
[2019-08-03 09:09] LABS: Partial Thromboplastin Ratio 2.4
[2019-08-03 09:12] LABS: Partial Thromboplastin Time 64.3 Seconds (21.0-31.0)
[2019-08-03 09:24] LABS: Magnesium 2.4 mg/dl (1.8-2.4); Phosphorus 3.1 mg/dl (2.5-4.9); Troponin I 50.7 ng/ml (0-0.045)
[2019-08-03] MEDS: CLOPIDOGREL BISULFATE 75 MG TAB PO SCH (09:49)
[2019-08-03] MEDS: AMLODIPINE BESYLATE 5 MG TAB PO SCH (09:50)
[2019-08-03] MEDS: DOCUSATE SODIUM 100 MG CAP PO SCH (09:50)
[2019-08-03] MEDS: ISOSORBIDE MONO EXTENDED REL 60 MG TABCR PO SCH (09:50)
[2019-08-03] MEDS: ATORVASTATIN 40 MG TAB PO SCH (09:51)
[2019-08-03] MEDS: ASPIRIN 81 MG ECTAB PO SCH (09:51)
[2019-08-03] MEDS: METOPROLOL TARTRATE 50 MG TAB PO SCH ×2 (09:52→20:28)
[2019-08-03] MEDS ORDERED: POTASSIUM CHLORIDE 20 MEQ TABCR PO ONE (11:15)
[2019-08-03 11:24] LABS: Estimated Average Glucose 120 mg/dl; Hemoglobin A1C 5.8 % (4.5-5.6)
--- NOTE | 2019-08-03 14:57 | Communication Note ---
Date of Service: August 03, 2019 Patient was seen and examined by myself. He had a run fo Vtach on monitor. Patient reports no new episodes of chest pain. Patient will remain in the ICU for the moment. D/W head doffer
--- NOTE | 2019-08-03 18:09 | Cardiology Progress Note ---
Date of Service August 03, 2019 Assessment & Plan (1) ACS (acute coronary syndrome): 2. Multivessel coronary artery disease 3. Chronic diastolic heart failure 4. Hypertension 5. Chronic kidney disease He is doing well. No recurrent symptoms or evidence of recurrent ischemia. Very brief run of NSVT this morning . No symptoms. No heart failure. No evidence of mechanical complication. Continue Imdur Stop nitroglycerine infusion Continue heparin for another 24 hours. Continue metoprolol, amlodipine. dual antiplatelet therapy and high dose atorvastatin. Will consider adding FERNANDO after re-assessing renal function tomorrow. Subjective He denies recurrent chest pain. No breathing difficulty. He has not been very ambulatory. No complaints of dizziness or palpitations Review of Systems Review of Systems: per HPI Physical Exam Physical Exam: General: Comfortable, no acute distress Eyes: Sclerae anicteric, extraocular movements intact HENT: Oropharynx clear mucous membranes moist Lungs: Clear to auscultation bilaterally Cardiac: Regular rate and rhythm, no murmurs Vascular: 2+ radial. Good perfusion of the right hand Abdomen: Soft, nontender, nondistended, positive bowel sounds. Extremities: Well perfused, no peripheral edema Skin: No rashes or lesions. Neuro: Nonfocal Psych: Alert orient x3, normal affect and mood Results & Data Vital Signs (Past 12 Hours) Vital Signs Temp Pulse Pulse Resp BP BP Pulse Ox 08/03/19 17:00 87 94 08/03/19 16:59 90 96 08/03/19 16:00 98 H 73 19 93 08/03/19 15:00 78 168/87 H 98 08/03/19 14:40 71 96 08/03/19 14:30 69 96 08/03/19 14:20 65 94 08/03/19 14:10 71 96 08/03/19 14:00 65 16 138/77 95 08/03/19 13:00 68 16 97 08/03/19 12:00 36.8 C 57 L 16 129/74 97 08/03/19 11:00 59 L 16 133/73 96 08/03/19 10:45 52 L 16 123/75 96 08/03/19 10:00 54 L 16 151/86 H 97 08/03/19 09:00 58 L 131/74 96 08/03/19 08:00 37.2 C 55 L 18 129/74 96 08/03/19 07:15 57 L 18 137/77 95 08/03/19 07:00 61 53 L 18 164/95 H 164/95 H 96 08/03/19 06:10 54 L 96 Laboratory Results Abnormal Lab Results 08/03/19 08/03/19 08/03/19 00:14 00:14 00:14 WBC 7.94 RBC 5.51 Hgb 17.5 Hct 50.8 MCV 92.2 MCH 31.8 MCHC 34.4 RDW Std Deviation 43.6 RDW Coeff of Leo 12.9 Plt Count 173 MPV 11.4 H Immature Gran % (Auto) 0.1 Neut % (Auto) 66.2 Lymph % (Auto) 21.0 Mercer % (Auto) 8.6 Eos % (Auto) 3.8 Baso % (Auto) 0.3 Immature Gran # (Auto) 0.01 Neut # (Auto) 5.26 Lymph # (Auto) 1.67 Mercer # (Auto) 0.68 H Eos # (Auto) 0.30 Baso # (Auto) 0.02 PT 10.9 INR 1.1 APTT 27.0 PTT Ratio 1.0 Sodium 137 Potassium 3.9 Chloride 104 Carbon Dioxide 26 Anion Gap 7.0 BUN 15 Creatinine 1.47 H Est Cr Clr Drug Dosing 43.7 Est GFR ( Amer) 52.2 Est GFR (Non-Af Amer) 45.0 BUN/Creatinine Ratio 10.1 Glucose 150 H POC Glucose Estimat Average Glucose Hemoglobin A1c Calcium 10.0 Phosphorus Magnesium 2.3 Total Bilirubin 0.7 AST 29 ALT 49 Alkaline Phosphatase 135 H Total Creatine Kinase 162 CK-MB (CK-2) 14.2 H CK/CKMB % Calc 8.8 H POC Troponin I Troponin I 0.806 H* Total Protein 7.4 Albumin 3.5 Globulin 3.9 Albumin/Globulin Ratio 0.9 TSH 1.700 Urine Color Urine Appearance Urine pH Ur Specific Alfred Urine Protein Urine Glucose (UA) Urine Ketones Urine Blood Urine Nitrite Urine Bilirubin Urine Urobilinogen Ur Leukocyte Esterase Urine WBC (Auto) Urine RBC (Auto) U Hyaline Cast (Auto) U Epithel Cells (Auto) Urine Bacteria (Auto) Nasal Screen MRSA (PCR) 08/03/19 08/03/19 08/03/19 00:16 02:14 02:43 WBC RBC Hgb Hct MCV MCH MCHC RDW Std Deviation RDW Coeff of Leo Plt Count MPV Immature Gran % (Auto) Neut % (Auto) Lymph % (Auto) Mercer % (Auto) Eos % (Auto) Baso % (Auto) Immature Gran # (Auto) Neut # (Auto) Lymph # (Auto) Mercer # (Auto) Eos # (Auto) Baso # (Auto) PT INR APTT PTT Ratio Sodium Potassium Chloride Carbon Dioxide Anion Gap BUN Creatinine Est Cr Clr Drug Dosing Est GFR ( Amer) Est GFR (Non-Af Amer) BUN/Creatinine Ratio Glucose POC Glucose 136 H Estimat Average Glucose Hemoglobin A1c Calcium Phosphorus Magnesium Total Bilirubin AST ALT Alkaline Phosphatase Total Creatine Kinase CK-MB (CK-2) CK/CKMB % Calc POC Troponin I 0.38 H Troponin I Total Protein Albumin Globulin Albumin/Globulin Ratio TSH Urine Color Urine Appearance Urine pH Ur Specific Alfred Urine Protein Urine Glucose (UA) Urine Ketones Urine Blood Urine Nitrite Urine Bilirubin Urine Urobilinogen Ur Leukocyte Esterase Urine WBC (Auto) Urine RBC (Auto) U Hyaline Cast (Auto) U Epithel Cells (Auto) Urine Bacteria (Auto) Nasal Screen MRSA (PCR) Negative 08/03/19 08/03/19 08/03/19 04:01 08:25 08:25 WBC 6.94 RBC 5.35 Hgb 17.2 Hct 49.8 MCV 93.1 MCH 32.1 MCHC 34.5 RDW Std Deviation 43.9 RDW Coeff of Leo 13.0 Plt Count 167 MPV 11.2 H Immature Gran % (Auto) 0.1 Neut % (Auto) 70.5 Lymph % (Auto) 15.6 Mercer % (Auto) 10.7 Eos % (Auto) 2.7 Baso % (Auto) 0.4 Immature Gran # (Auto) 0.01 Neut # (Auto) 4.89 Lymph # (Auto) 1.08 L Mercer # (Auto) 0.74 H Eos # (Auto) 0.19 Baso # (Auto) 0.03 PT INR APTT PTT Ratio Sodium Potassium Chloride Carbon Dioxide Anion Gap BUN Creatinine Est Cr Clr Drug Dosing Est GFR ( Amer) Est GFR (Non-Af Amer) BUN/Creatinine Ratio Glucose POC Glucose Estimat Average Glucose Hemoglobin A1c Calcium Phosphorus 3.1 Magnesium 2.4 Total Bilirubin AST ALT Alkaline Phosphatase Total Creatine Kinase CK-MB (CK-2) CK/CKMB % Calc POC Troponin I Troponin I 50.700 H* Total Protein Albumin Globulin Albumin/Globulin Ratio TSH Urine Color Yellow Urine Appearance Clear Urine pH 7.5 Ur Specific Alfred 1.025 Urine Protein Negative Urine Glucose (UA) Trace H Urine Ketones Trace H Urine Blood 1+ H Urine Nitrite Negative Urine Bilirubin Negative Urine Urobilinogen Negative Ur Leukocyte Esterase Negative Urine WBC (Auto) 0 Urine RBC (Auto) 0-4 U Hyaline Cast (Auto) 0 U Epithel Cells (Auto) 5-10 H Urine Bacteria (Auto) Negative Nasal Screen MRSA (PCR) 08/03/19 08/03/19 08/03/19 08:25 08:25 09:22 WBC RBC Hgb Hct MCV MCH MCHC RDW Std Deviation RDW Coeff of Leo Plt Count MPV Immature Gran % (Auto) Neut % (Auto) Lymph % (Auto) Mercer % (Auto) Eos % (Auto) Baso % (Auto) Immature Gran # (Auto) Neut # (Auto) Lymph # (Auto) Mercer # (Auto) Eos # (Auto) Baso # (Auto) PT INR APTT 64.3 H* PTT Ratio 2.4 Sodium Potassium Chloride Carbon Dioxide Anion Gap BUN Creatinine Est Cr Clr Drug Dosing Est GFR ( Amer) Est GFR (Non-Af Amer) BUN/Creatinine Ratio Glucose POC Glucose 156 H Estimat Average Glucose 120 Hemoglobin A1c 5.8 H Calcium Phosphorus Magnesium Total Bilirubin AST ALT Alkaline Phosphatase Total Creatine Kinase CK-MB (CK-2) CK/CKMB % Calc POC Troponin I Troponin I Total Protein Albumin Globulin Albumin/Globulin Ratio TSH Urine Color Urine Appearance Urine pH Ur Specific Alfred Urine Protein Urine Glucose (UA) Urine Ketones Urine Blood Urine Nitrite Urine Bilirubin Urine Urobilinogen Ur Leukocyte Esterase Urine WBC (Auto) Urine RBC (Auto) U Hyaline Cast (Auto) U Epithel Cells (Auto) Urine Bacteria (Auto) Nasal Screen MRSA (PCR) 08/03/19 08/03/19 13:32 20:13 WBC RBC Hgb Hct MCV MCH MCHC RDW Std Deviation RDW Coeff of Leo Plt Count MPV Immature Gran % (Auto) Neut % (Auto) Lymph % (Auto) Mercer % (Auto) Eos % (Auto) Baso % (Auto) Immature Gran # (Auto) Neut # (Auto) Lymph # (Auto) Mercer # (Auto) Eos # (Auto) Baso # (Auto) PT INR APTT PTT Ratio Sodium Potassium Chloride Carbon Dioxide Anion Gap BUN Creatinine Est Cr Clr Drug Dosing Est GFR ( Amer) Est GFR (Non-Af Amer) BUN/Creatinine Ratio Glucose POC Glucose 161 H Estimat Average Glucose Hemoglobin A1c Calcium Phosphorus Magnesium Total Bilirubin AST ALT Alkaline Phosphatase Total Creatine Kinase CK-MB (CK-2) CK/CKMB % Calc POC Troponin I Troponin I 37.900 H* Total Protein Albumin Globulin Albumin/Globulin Ratio TSH Urine Color Urine Appearance Urine pH Ur Specific Alfred Urine Protein Urine Glucose (UA) Urine Ketones Urine Blood Urine Nitrite Urine Bilirubin Urine Urobilinogen Ur Leukocyte Esterase Urine WBC (Auto) Urine RBC (Auto) U Hyaline Cast (Auto) U Epithel Cells (Auto) Urine Bacteria (Auto) Nasal Screen MRSA (PCR) Diagnostic Findings Echocardiogram performed today revealed mildly reduced LV function with regional wall motion abnormalities.
[2019-08-03] MEDS ORDERED: LIDOCAINE 2% JELLY 5 ML TUBE ONE (18:46)
[2019-08-03] MEDS: FAMOTIDINE 20 MG TAB PO SCH (20:28)
[2019-08-04 04:55] LABS: Basophils # (auto) 0.03 K/uL (0-0.2); Basophils % (auto) 0.2 %; Eosinophils # (auto) 0.25 K/uL (0-0.5); Eosinophils % (auto) 1.8 %; Hematocrit (blood only) 52.3 % (42-52); Hemoglobin 17.8 g/dL (14.0-18.0); Immature Granulocytes # (auto) 0.04 K/uL (0.00-0.02); Immature Granulocytes % (auto) 0.3 %; Lymphocytes # (auto) 1.94 K/uL (1.2-3.4); Lymphocytes % (auto) 14.3 %; Mean Corpuscular Hemoglobin 31.4 pg (25-34); Mean Corpuscular Volume 92.2 fL (80-100); Mean Platelet Volume 11.4 fL (7.4-10.4); Monocytes # (auto) 1.58 K/uL (0.11-0.59); Monocytes % (auto) 11.7 %; Neutrophils # (auto) 9.69 K/uL (1.4-6.5); Neutrophils % (auto) 71.7 %; Platelet Count 164 K/uL (130-400); RDW Coefficient of Variation 13.2 % (11.5-14.5); RDW Standard Deviation 44.4 fL (36.4-46.3); Red Blood Count 5.67 M/uL (4.7-6.1); White Blood Count 13.53 K/uL (4.8-10.8)
--- NOTE | 2019-08-04 05:13 | Critical Care Progress Note ---
Date of Service August 04, 2019 Assessment & Plan (1) Admitted to intensive care unit: Reason Critically Ill: 79-year-old male here with a PMHx significant for severe multivessel CAD, HTN, CKD3, CHF class 3 who presented with 1 hour of acute chest pain and who was admitted for ACS. Neuro - [facility] ICU: Negative Analgesia: No pain, nitro drip discontinued Increase speech latency, improved today Per family patient has slow speech and increased latency of thought at baseline. Discussed with patient, he reports that his speech feels normal for him today. He is oriented to name, but is not oriented to place. Neurologic exam does not show focal deficits, strength and cranial nerve exam is intact. Low suspicion for acute intracerebral pathology at this time, defer imaging. Agitation Patient was agitated this morning, pulling at Blue, but was able to answer questions appropriately although showed poor insight to his medical condition. Blue removed, agitation greatly improved. Given retention and agitation with leukocytosis as below will consider UA analysis for possible UTI, unclear what his neurocognitive baseline is. Further management as below. He has not been tachycardic, and has been normotensive throughout admission. 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 Cardiac - Acute ST elevation [place] status post catheterization Severe multivessel disease. Proximal LAD stent patent, mid RCA occluded with collaterals, second diagonal appears to be acutely occluded. EKG on admission with anterior ST elevations and QTc 465ms Not a surgical/CABG candidate Medical management. Currently asymptomatic Off nitro drip. Continue amlodipine 10 mg daily Continue DAPT (ASA/Plavix) for 1 year Continue atorvastatin 80 mg daily Continue heparin drip for total of 48 hours Troponins downtrending Continue metoprolol tartrate 50 mg twice daily -FADI near baseline, consider addition of FERNANDO (lisinopril 5 mg) CHF Cardiac management as above FERNANDO as below Respiratory - No acute concerns Adequate SPO2 on room air GI - Heart healthy diet Ulcer prophylaxis: Ranitidine 150 mg p.o. twice daily RENAL/LYTES - FADI on CKD Creatinine peaked at 1.47, decreased to 1.4 approximately baseline Normotensive today. Consider FERNANDO as above BMP daily Replace electrolytes per protocol - Urinary retention, hematuria Patient with urinary retention following procedure, had one straight cath and then continued to have retention with 1 L on bladder scan and Blue was placed. He has had red-tinged but not frankly bloody urine. Blue removed this morning. Patient is afebrile, but had a mild leukocytosis to 13 this morning. UA with reflex UC ordered for next void, bladder scan if no urination within 6 hours. Suspect traumatic hematuria, continue to follow. ENDO - No history of type 2 diabetes mellitus BSG is in 100s, adequate glycemic control Continue ICU hyperglycemic protocol HEME - Stable H&H. Will monitor for any drops in the setting of Heparin gtt Hemoglobin stable ID - See above INTEGUMENTARY - No acute concerns LINES/IV ACCESS - PIVs intact. DVT PROPHYLAXIS - Heparin GTT Disposition: Anticipate downgrade Thank you for allowing us to be part of this patient's care. Please refer to Dr. Jaffe's documentation for any further recommendations. Supervising Physician Co-Signing Physician Notes Dr. Frye was resident physician during care of patient. I separately evaluated patient for connor portions of the history and the exam. I was present during the critical portion of medical decision making, and I discussed the case with the resident. I generally agree with the findings and plan. Patient was discussed on multidisciplinary rounds Discontinue heparin at 24 hours, patient has had increase in acute agitation, we know there is some baseline dementia, and his history he denied alcohol consumption it is reasonable to have that in the differential however there has not been direct corroboration of alcohol intake. Infectious etiologies are in the differential of this presumptive metabolic encephalopathy, ICU delirium is also in the differential we will attempt to normalize him to the best of our ability through sleep hygiene and minimizing interruptions. He has had some difficulty voiding if there is reason to either replace a Blue or straight cath the patient we will consider evaluation for a UTI, white count can certainly be related to his recent procedure as well as contribute to the ing. He is moving all 4 extremities. Troponins continued to downtrend which is reassuring, we will definitely initiate chemical restraints if the patient becomes too agitated given his recent acute coronary syndrome and want to minimize myocardial oxygen consumption. By enlarge part his critical care needs appear to have resolved and stable for downgrade to telemetry status. Isela Zurita was seen at the bedside this morning. Has had increased agitation this morning and attempted to remove his Blue. Reports the Blue is annoying, but denies pain. He denies general pain, difficulty breathing, chest pain, and does not answer further questions stating "quit fucking poking at me." this morning he reports "I'm not an , I will get out of bed if I want to ". Review of Systems Review of Systems: Denies chest pain, chest pressure, shortness of breath. Endorses he is "annoyed "at his Blue site but denies pain. Does not cooperate with rest of review of systems. Physical Exam Physical Exam: General: Oriented to name only. NAD. Not cooperative. HEENT: Atraumatic, normocephalic. No right-sided proptosis or right lip droop at rest this morning. Pupils equal and responsive to light and accommodation. Pulm: CTAB A&P. -wheezes, -rales, -rhonchi. Symmetrical chest rise. No increase work of breathing. No respiratory distress. Cardiac: RRR, -mrg. Radial pulses intact and symmetrical. Abdominal:Softly distended, bowel sounds intact. BS present. Extremities: Moving all extremities equally. PT pulse intact bilaterally. Results & Data Vital Signs (Past 12 Hours) Vital Signs Temp Pulse Resp BP Pulse Ox 08/04/19 04:00 37 C 70 13 122/84 95 08/04/19 03:01 70 13 95 08/04/19 03:00 67 14 122/84 96 08/04/19 02:50 70 12 94 08/04/19 02:45 71 14 126/82 93 08/04/19 02:40 63 16 94 08/04/19 02:31 67 14 93 08/04/19 02:30 64 12 104/57 L 94 08/04/19 02:20 65 22 93 08/04/19 02:16 79 15 126/73 94 08/04/19 02:10 77 13 92 08/04/19 02:01 66 16 95 08/04/19 02:00 75 16 128/78 91 08/04/19 01:50 66 14 89 L 08/04/19 01:45 63 16 118/59 L 92 08/04/19 01:40 66 13 93 08/04/19 01:31 70 12 108/69 93 08/04/19 01:30 68 12 93 08/04/19 01:20 70 13 94 08/04/19 01:15 72 13 138/76 95 08/04/19 01:10 80 19 95 08/04/19 01:01 76 14 125/96 95 08/04/19 01:00 78 13 93 08/04/19 00:50 86 16 91 08/04/19 00:45 68 15 139/88 94 08/04/19 00:40 66 13 92 08/04/19 00:31 64 18 93 08/04/19 00:30 65 14 134/73 92 08/04/19 00:20 63 12 91 08/04/19 00:15 67 14 161/79 H 94 08/04/19 00:10 67 16 94 08/04/19 00:02 72 12 93 08/04/19 00:00 66 14 129/75 93 08/03/19 23:50 87 15 95 08/03/19 23:45 63 16 130/74 92 08/03/19 23:40 65 16 94 08/03/19 23:31 13 94 08/03/19 23:30 67 17 128/76 92 08/03/19 23:20 67 21 93 08/03/19 23:15 73 24 145/82 H 94 08/03/19 23:10 80 20 94 08/03/19 23:01 71 19 91 08/03/19 23:00 71 19 134/75 91 08/03/19 22:55 19 91 08/03/19 22:00 85 137/81 94 08/03/19 21:50 74 95 08/03/19 21:45 76 132/79 93 08/03/19 21:40 79 96 08/03/19 21:30 80 95 08/03/19 21:20 83 94 08/03/19 21:10 72 93 08/03/19 21:00 75 132/79 94 08/03/19 20:00 37 C 74 18 132/79 93 08/03/19 19:00 78 124/76 08/03/19 18:50 95 H 08/03/19 18:40 99 H 08/03/19 18:30 90 08/03/19 18:20 84 96 08/03/19 18:10 73 94 08/03/19 18:00 36.9 C 75 139/89 95 08/03/19 17:50 72 93 08/03/19 17:40 98 H 74 L 08/03/19 17:30 74 94 08/03/19 17:20 88 96 Resident Activity Tracking Resident Involvement: Resident Care Provided Care Provided: Adult Hospital Medicine
[2019-08-04 05:15] LABS: Partial Thromboplastin Ratio 1.8
[2019-08-04 05:18] LABS: BUN Creatinine Ratio 8.2 (10-20); Calcium 9.4 mg/dl (8.5-10.1); Creatinine Clr Calc Pharmacy 44.6 ml/min; Est GFR (African American) 55.4; Est GFR (Non-African American) 47.8; Magnesium 2.2 mg/dl (1.8-2.4); Phosphorus 2.9 mg/dl (2.5-4.9); Potassium 4.3 mmol/L (3.5-5.1)
[2019-08-04 05:24] LABS: Partial Thromboplastin Time 49.6 Seconds (21.0-31.0)
[2019-08-04] MEDS ORDERED: POTASSIUM CHLORIDE / WTR 10 MEQ/100 ML PLCT IV SCH (06:00)
[2019-08-04] MEDS: CLOPIDOGREL BISULFATE 75 MG TAB PO SCH (07:51)
[2019-08-04] MEDS: ISOSORBIDE MONO EXTENDED REL 60 MG TABCR PO SCH (07:54)
[2019-08-04] MEDS: METOPROLOL TARTRATE 50 MG TAB PO SCH ×3 (07:55→23:04)
[2019-08-04] MEDS: ASPIRIN 81 MG ECTAB PO SCH (07:56)
[2019-08-04] MEDS: FAMOTIDINE 20 MG TAB PO SCH ×3 (07:57→23:04)
[2019-08-04] MEDS: DOCUSATE SODIUM 100 MG CAP PO SCH (07:57)
[2019-08-04] MEDS: AMLODIPINE BESYLATE 5 MG TAB PO SCH (07:58)
[2019-08-04] MEDS: ATORVASTATIN 40 MG TAB PO SCH (07:58)
[2019-08-04] MEDS ORDERED: DiphenhydrAMINE HCL 50 MG/ML VIAL IM ONE (08:30)
[2019-08-04] MEDS ORDERED: ZIPRASIDONE 20 MG/ML SDV IM ONE (08:30)
[2019-08-04] MEDS ORDERED: BENZTROPINE MESYLATE 1 MG/ML 2 ML AMP IM STA (08:31)
[2019-08-04] MEDS: HEPARIN SODIUM/DEXTROSE 25,000 UNITS/500 ML BAG IV SCH (10:07)
[2019-08-04] MEDS ORDERED: SODIUM CHLORIDE 0.9% 500 ML IV ONE (10:30)
[2019-08-04] MEDS: INSULIN ASPART 100 UNITS/ML 3 ML PEN SC SCH ×3 (13:00→22:56)
[2019-08-04 13:54] LABS: iSTAT Blood Urea Nitrogen 15 mg/dl (7-18); iSTAT Carbon Dioxide < 5 mEq/l (24-31); iSTAT Chloride 103 mEq/L (101-112); iSTAT Creatinine 1.4 mg/dl (0.6-1.3); iSTAT Glucose 149 mg/dl (70-99); iSTAT Hematocrit 51 % (42-52); iSTAT Hemoglobin 17.3 g/dl (14.0-18.0); iSTAT Ionized Calcium 1.17 mmol/l (1.12-1.32); iSTAT Sodium 138 mEq/L (135-144)
--- NOTE | 2019-08-04 17:22 | Billing Data ---
Coding Level of Care Code 74963 Subseq Hosp Care Lvl 3
--- NOTE | 2019-08-04 17:29 | Cardiology Progress Note ---
Date of Service August 04, 2019 Assessment & Plan (1) ACS (acute coronary syndrome): 2. Multivessel coronary artery disease 3. Chronic diastolic heart failure 4. Hypertension 5. Chronic kidney disease From a cardiac perspective there does not appear to be any complication. He has not had any additional electrical instability. He does not appear to have heart failure although this is difficult to assess. He is not reporting recurrent symptoms of chest discomfort and cardiac biomarkers continued to trend downward. He has been somewhat hypotensive today. Some of this may be related to medications required for agitation. Current medications which include dual anti-platelet therapy, high-dose atorvastatin and beta yesi. Amlodipine could be held if his blood pressure continues to be low. Discontinue heparin at the 48 hour steve We will look to add Tahir inhibition when possible. His renal function appears to be stable but his blood pressure is currently low. Subjective The patient has been very agitated throughout the course of the day. Earlier he was sedated and poorly responsive. This evening he continues to be agitated and has some difficulty communicating. Review of Systems Review of Systems: Unobtainable due to cognitive status Physical Exam Physical Exam: General: Agitated. Responsive and follows commands but does not answer questions appropriately. Eyes: Sclerae anicteric, extraocular movements intact HENT: Oropharynx clear mucous membranes moist Lungs: Clear to auscultation bilaterally Cardiac: Regular rate and rhythm, no murmurs Vascular: 2+ radial. Good perfusion of the right hand Abdomen: Soft, nontender, nondistended, positive bowel sounds. Extremities: Well perfused, no peripheral edema Skin: No rashes or lesions. Neuro: Nonfocal Psych: Alert orient x3, normal affect and mood Results & Data Vital Signs (Past 12 Hours) Vital Signs Temp Pulse Resp BP Pulse Ox 08/04/19 14:30 67 91/72 L 91 08/04/19 14:01 60 98 08/04/19 14:00 53 L 108/54 L 99 08/04/19 13:31 61 98 08/04/19 13:30 55 L 98/51 L 99 08/04/19 13:01 65 100 08/04/19 13:00 54 L 91/50 L 99 08/04/19 12:31 59 L 99 08/04/19 12:30 57 L 88/52 L 100 08/04/19 12:02 61 99/56 L 99 08/04/19 12:00 62 99 08/04/19 11:31 58 L 99 08/04/19 11:30 64 96/56 L 99 08/04/19 11:01 67 113/74 100 08/04/19 11:00 66 92 08/04/19 10:31 61 107/64 100 08/04/19 10:30 68 85 L 08/04/19 10:14 61 72/43 L 98 08/04/19 10:01 61 98 08/04/19 10:00 63 77/48 L 97 08/04/19 09:59 59 L 89/54 L 98 08/04/19 09:45 61 98 08/04/19 09:44 64 83/56 L 08/04/19 09:40 67 94 08/04/19 09:30 67 08/04/19 09:20 71 12 08/04/19 09:10 75 14 08/04/19 09:00 79 20 08/04/19 08:30 97 H 20 08/04/19 08:00 82 20 08/04/19 07:30 96 H 11 L 100 08/04/19 07:17 36.8 C 82 20 150/82 H 98 08/04/19 07:01 87 15 98 08/04/19 06:00 76 16 124/80 98 Laboratory Results Abnormal Lab Results 08/03/19 08/03/19 08/04/19 00:14 20:13 04:39 WBC RBC Hgb POC Hgb 17.3 Hct POC Hct 51 MCV MCH MCHC RDW Std Deviation RDW Coeff of Leo Plt Count MPV Immature Gran % (Auto) Neut % (Auto) Lymph % (Auto) [place] % (Auto) Eos % (Auto) Baso % (Auto) Immature Gran # (Auto) Neut # (Auto) Lymph # (Auto) [place] # (Auto) Eos # (Auto) Baso # (Auto) APTT PTT Ratio POC Sodium 138 Sodium 137 POC Potassium 4.0 Potassium 4.3 POC Chloride 103 Chloride 106 Carbon Dioxide 25 POC Total CO2 < 5 L* Anion Gap 6.0 POC Anion Gap TNP POC BUN 15 BUN 11 Creatinine 1.40 POC Creatinine 1.4 H Est Cr Clr Drug Dosing 44.6 Est GFR ( Amer) 55.4 Est GFR (Non-Af Amer) 47.8 BUN/Creatinine Ratio 8.2 L Glucose 137 H POC Glucose 161 H POC Glucose (other) 149 H Calcium 9.4 POC Ioniz Calcium Fabiola 1.17 Phosphorus 2.9 Magnesium 2.2 Troponin I 08/04/19 08/04/19 08/04/19 04:39 04:39 04:52 WBC 13.53 H RBC 5.67 Hgb 17.8 POC Hgb Hct 52.3 H POC Hct MCV 92.2 MCH 31.4 MCHC 34.0 RDW Std Deviation 44.4 RDW Coeff of Leo 13.2 Plt Count 164 MPV 11.4 H Immature Gran % (Auto) 0.3 Neut % (Auto) 71.7 Lymph % (Auto) 14.3 [place] % (Auto) 11.7 Eos % (Auto) 1.8 Baso % (Auto) 0.2 Immature Gran # (Auto) 0.04 H Neut # (Auto) 9.69 H Lymph # (Auto) 1.94 [place] # (Auto) 1.58 H Eos # (Auto) 0.25 Baso # (Auto) 0.03 APTT 49.6 H* PTT Ratio 1.8 POC Sodium Sodium POC Potassium Potassium POC Chloride Chloride Carbon Dioxide POC Total CO2 Anion Gap POC Anion Gap POC BUN BUN Creatinine POC Creatinine Est Cr Clr Drug Dosing Est GFR ( Amer) Est GFR (Non-Af Amer) BUN/Creatinine Ratio Glucose POC Glucose 124 H POC Glucose (other) Calcium POC Ioniz Calcium Fabiola Phosphorus Magnesium Troponin I 08/04/19 08/04/19 11:51 14:55 WBC RBC Hgb POC Hgb Hct POC Hct MCV MCH MCHC RDW Std Deviation RDW Coeff of Leo Plt Count MPV Immature Gran % (Auto) Neut % (Auto) Lymph % (Auto) [place] % (Auto) Eos % (Auto) Baso % (Auto) Immature Gran # (Auto) Neut # (Auto) Lymph # (Auto) [place] # (Auto) Eos # (Auto) Baso # (Auto) APTT PTT Ratio POC Sodium Sodium POC Potassium Potassium POC Chloride Chloride Carbon Dioxide POC Total CO2 Anion Gap POC Anion Gap POC BUN BUN Creatinine POC Creatinine Est Cr Clr Drug Dosing Est GFR ( Amer) Est GFR (Non-Af Amer) BUN/Creatinine Ratio Glucose POC Glucose 103 H POC Glucose (other) Calcium POC Ioniz Calcium Fabiola Phosphorus Magnesium Troponin I 19.700 H* PG Care Time/CCT Total # of Minutes Spent Total Time Spent with Patient: Total time spent is greater than 50% in coordination of care (as documented) at patient's floor/unit and/or counseling patient:
[2019-08-04] MEDS ORDERED: HALOPERIDOL LACTATE 5 MG/ML 1 ML VIAL IV STA (19:25)
[2019-08-04] MEDS ORDERED: HALOPERIDOL LACTATE 5 MG/ML 1 ML VIAL ONE (19:26)
[2019-08-04] MEDS ORDERED: Heparin IV Low Dose *NO* Bolus IV ONE (21:02)
[2019-08-04] MEDS ORDERED: HEPARIN SODIUM/DEXTROSE 25,000 UNITS/500 ML BAG IV SCH (21:15)
[2019-08-04 21:37] LABS: Appearance Urine Turbid (Clear); Color Urine Red
[2019-08-04 21:38] LABS: Sulfosalicylic Acid Urine Positive (Negative)
[2019-08-04 21:39] LABS: Specific Gravity Urine 1.023 (1.000-1.060)
[2019-08-04 21:41] LABS: Protein Urine Positive (Negative)
[2019-08-04 21:43] LABS: Bacteria Urine Automated 3+ (Negative); Cast Urine Automated 0 /lpf (0-5); Epithelial Cell Urine Auto >30 /lpf (0-5); RBC Urine Automated >30 /hpf (0-4); WBC Urine Automated >30 /hpf (0-5)
--- NOTE | 2019-08-04 21:56 | Hospitalist Progress Note ---
Date of Service August 04, 2019 Assessment & Plan (1) ACS (acute coronary syndrome): Patient is a pleasant 79yo M PMH chronic diastolic CHF, CKD III, HTN, HLD, CAD s/p bare metal stent of LAD (2011), admitted for STEMI. ACS/STEMI -Appreciate cardiology input -Transferred to ICU from medical lab specialist -reviewed echo. Trended trop. Patient has improved, will trasfer out of ICU. will continue on heparin drip to complete 48 hours -Pt loaded with plavix; DAPT rec'd x 1 year -Titrate home meds, including BB, amlodipine, nitrate, statin Hx of stent, 2012 -Pt poor candidate for CABG CHF, NYHA III -Echo ordered and reviewed CKD III -Cr stable; cont to monitor HTN/HLD -titrate meds as tolerated as above (2) ST elevation myocardial infarction (STEMI): (3) Hx of heart artery stent: (4) CHF (congestive heart failure), NYHA class III: (5) CKD (chronic kidney disease), stage III: (6) HTN (hypertension): (7) Hyperlipidemia: (8) Delirium: May be hospital acquired, will monitor. removed resendez will monitor. Subjective Patient is more lethargic today. Not complaining of any new issues. Review of Systems Review of Systems: Unobtainable due to cognitive status Physical Exam Physical Exam: Constitutional: WD/WN, vitals as above Eyes: PERRL, conjunctivae normal, anicteric sclerae ENMT: external ear and nose normal, oropharynx normal Ears: + hearing impairment Speaks slowly Neck: normal visual inspection Respiratory: normal respiratory effort, lungs clear to auscultation Cardiovascular: RRR, no murmur, no edema Gastrointestinal (Abdomen): normal bowel sounds, soft, nontender, no hepatosplenomegaly Musculoskeletal: no cyanosis or clubbing, extremities motor strength 5/5 Skin: no rashes, warm and dry Psychiatric: letargic Results & Data Vital Signs (Past 12 Hours) Vital Signs Pulse BP Pulse Ox 08/04/19 18:00 68 149/138 H 08/04/19 17:01 70 106/58 L 90 08/04/19 16:30 69 129/81 08/04/19 16:01 82 96 08/04/19 16:00 61 108/57 L 95 08/04/19 15:30 72 122/74 98 08/04/19 15:02 57 L 110/64 100 08/04/19 15:00 82 84 L 08/04/19 14:31 63 08/04/19 14:30 67 91/72 L 91 08/04/19 14:01 60 98 08/04/19 14:00 53 L 108/54 L 99 08/04/19 13:31 61 98 08/04/19 13:30 55 L 98/51 L 99 08/04/19 13:01 65 100 08/04/19 13:00 54 L 91/50 L 99 08/04/19 12:31 59 L 99 08/04/19 12:30 57 L 88/52 L 100 08/04/19 12:02 61 99/56 L 99 08/04/19 12:00 62 99 08/04/19 11:31 58 L 99 08/04/19 11:30 64 96/56 L 99 08/04/19 11:01 67 113/74 100 08/04/19 11:00 66 92 08/04/19 10:31 61 107/64 100 08/04/19 10:30 68 85 L 08/04/19 10:14 61 72/43 L 98 08/04/19 10:01 61 98 08/04/19 10:00 63 77/48 L 97 08/04/19 09:59 59 L 89/54 L 98 PG Care Time/CCT Total # of Minutes Spent Total Time Spent with Patient: Total time spent is greater than 50% in coordination of care (as documented) at patient's floor/unit and/or counseling patient: (1) ST elevation myocardial infarction (STEMI) Involved coronary artery: unspecified coronary artery Qualified Code(s): I21.3 - ST elevation (STEMI) myocardial infarction of unspecified site
[2019-08-05] MEDS ORDERED: ACETAMINOPHEN 1,000 MG/100 ML VIAL IV PRN (00:13)
[2019-08-05] MEDS: cefTRIAXone SODIUM 1,000 MG in DEXTROSE 5% 50 ML IV SCH ×2 (01:09→20:32)
[2019-08-05 06:24] LABS: Partial Thromboplastin Ratio 1.8
[2019-08-05 06:26] LABS: Partial Thromboplastin Time 48.1 Seconds (21.0-31.0)
[2019-08-05] MEDS: FAMOTIDINE 20 MG TAB PO SCH ×2 (08:37→20:33)
[2019-08-05] MEDS: ASPIRIN 81 MG ECTAB PO SCH (08:37)
[2019-08-05] MEDS: METOPROLOL TARTRATE 50 MG TAB PO SCH ×2 (08:37→20:33)
[2019-08-05] MEDS: ISOSORBIDE MONO EXTENDED REL 60 MG TABCR PO SCH (08:38)
[2019-08-05] MEDS: AMLODIPINE BESYLATE 5 MG TAB PO SCH (08:38)
[2019-08-05] MEDS: CLOPIDOGREL BISULFATE 75 MG TAB PO SCH (08:38)
[2019-08-05] MEDS: ATORVASTATIN 40 MG TAB PO SCH (08:38)
[2019-08-05] MEDS: DOCUSATE SODIUM 100 MG CAP PO SCH (09:12)
[2019-08-05] MEDS: INSULIN ASPART 100 UNITS/ML 3 ML PEN SC SCH ×4 (10:36→20:34)
--- NOTE | 2019-08-05 13:32 | Cardiology Progress Note ---
Date of Service August 05, 2019 Assessment & Plan (1) ACS (acute coronary syndrome): 2. Multivessel coronary artery disease 3. Chronic diastolic heart failure 4. Hypertension 5. Chronic kidney disease From a cardiac perspective he seems to be doing well. No evidence of complications such as heart failure, recurrent ischemia or electrical instability. He seems to be ambulatory without symptom. His agitation and mental status appears to be limiting his recovery. Blood pressure is improved today. Heparin was discontinued Continue other medications including dual anti-platelet therapy, long-acting nitrate, amlodipine beta-yesi and high-dose atorvastatin. I will be away from the hospital for the next 2 days. I will continue his medical therapy. Do not believe there is any adjustments required at this time. However, if there are additional questions, please contact the on-call systems test analyst for assistance. Thank you Subjective Patient did not report any symptoms of chest discomfort or breathing difficulty. He reported by the nursing staff to have ambulated through the halls without symptoms. Review of Systems Review of Systems: Per HPI. Physical Exam Physical Exam: The patient is alert and oriented. Mood and affect appeared normal. He answered all questions appropriately. He did have some slow mentation and some generally slow speech. HEENT: Pupils are equal and reactive to light and accommodation. Extraocular movements are intact. The sclerae are anicteric. Neuro: Cranial nerves intact Lungs: Clear to auscultation bilaterally. He has good air movement without use of accessory muscles. No rales wheezes or rhonchi. Cardiac: Heart demonstrates a regular rate and rhythm. Normal S1 and S2. No murmurs on examination. Pulses: The patient has palpable radial pulses bilaterally that are equal in intensity Extremities: There was no evidence of hypoperfusion. There is no cyanosis or clubbing. There is no edema. Skin: I did not appreciate any rashes on examination today. Results & Data Vital Signs (Past 12 Hours) Vital Signs Temp Pulse Resp BP Pulse Ox 08/05/19 11:52 36.6 C 56 L 18 104/52 L 94 08/05/19 06:56 36.3 C L 79 18 149/79 H 94 08/05/19 05:15 37.3 C 72 18 147/76 H 94 Laboratory Results Abnormal Lab Results 08/03/19 08/04/19 08/04/19 00:14 14:55 19:32 POC Hgb 17.3 POC Hct 51 APTT PTT Ratio POC Sodium 138 POC Potassium 4.0 POC Chloride 103 POC Total CO2 < 5 L* POC Anion Gap TNP POC BUN 15 POC Creatinine 1.4 H POC Glucose 108 H POC Glucose (other) 149 H POC Ioniz Calcium Fabiola 1.17 Troponin I 19.700 H* Urine Color Urine Appearance Urine pH Ur Specific [place] Urine Protein Urine Glucose (UA) Urine Ketones Urine Blood Urine Nitrite Urine Bilirubin Urine Urobilinogen Ur Leukocyte Esterase Urine WBC (Auto) Urine RBC (Auto) U Hyaline Cast (Auto) U Epithel Cells (Auto) Urine Bacteria (Auto) 08/04/19 08/05/19 08/05/19 21:00 05:37 07:14 POC Hgb POC Hct APTT 48.1 H* PTT Ratio 1.8 POC Sodium POC Potassium POC Chloride POC Total CO2 POC Anion Gap POC BUN POC Creatinine POC Glucose 112 H POC Glucose (other) POC Ioniz Calcium Fabiola Troponin I Urine Color Red Urine Appearance Turbid A Urine pH Ur Specific [place] 1.023 Urine Protein Positive H Urine Glucose (UA) Urine Ketones Urine Blood Urine Nitrite Urine Bilirubin Urine Urobilinogen Ur Leukocyte Esterase Urine WBC (Auto) >30 H Urine RBC (Auto) >30 H U Hyaline Cast (Auto) 0 U Epithel Cells (Auto) >30 H Urine Bacteria (Auto) 3+ H 08/05/19 11:34 POC Hgb POC Hct APTT PTT Ratio POC Sodium POC Potassium POC Chloride POC Total CO2 POC Anion Gap POC BUN POC Creatinine POC Glucose 141 H POC Glucose (other) POC Ioniz Calcium Fabiola Troponin I Urine Color Urine Appearance Urine pH Ur Specific [place] Urine Protein Urine Glucose (UA) Urine Ketones Urine Blood Urine Nitrite Urine Bilirubin Urine Urobilinogen Ur Leukocyte Esterase Urine WBC (Auto) Urine RBC (Auto) U Hyaline Cast (Auto) U Epithel Cells (Auto) Urine Bacteria (Auto) PG Care Time/CCT Total # of Minutes Spent Total Time Spent with Patient: Total time spent is greater than 50% in coordination of care (as documented) at patient's floor/unit and/or counseling patient:
[2019-08-05] MEDS ORDERED: GLUCAGON FOR INJ 1 MG VIAL IM PRN (17:00)
[2019-08-05] MEDS ORDERED: GLUCOSE 40% GEL 15 GM TUBE PO PRN (17:00)
[2019-08-05] MEDS ORDERED: DEXTROSE 50% 50 ML SYRINGE IV PRN (17:00)
[2019-08-05] MEDS ORDERED: GLUCOSE 10 TABS/TUBE PO PRN (17:00)
[2019-08-05] MEDS ORDERED: CARBOHYDRATES FOR HYPOGLYCEMIA PO PRN (17:00)
--- NOTE | 2019-08-05 22:38 | Hospitalist Progress Note ---
Date of Service August 05, 2019 Assessment & Plan (1) ACS (acute coronary syndrome): Patient is a pleasant 79yo M PMH chronic diastolic CHF, CKD III, HTN, HLD, CAD s/p bare metal stent of LAD (2011), admitted for STEMI. ACS/STEMI -Appreciate cardiology input -Transferred to ICU from flue dust laborer -reviewed echo. Trended trop. Patient has improved, and is out of the ICU. will continue on heparin drip to complete 48 hours -Pt loaded with plavix; DAPT rec'd x 1 year -Titrate home meds, including BB, amlodipine, nitrate, statin If patient continues to feel well, will discharge home tomorrow. Hx of stent, 2011 -Pt poor candidate for CABG CHF, NYHA III -Echo ordered and reviewed CKD III -Cr stable; cont to monitor HTN/HLD -titrate meds as tolerated as above (2) ST elevation myocardial infarction (STEMI): (3) Hx of heart artery stent: (4) CHF (congestive heart failure), NYHA class III: (5) CKD (chronic kidney disease), stage III: (6) HTN (hypertension): (7) Hyperlipidemia: (8) Delirium: Likely hospital acquired, has improved. I also updated son via the phone. Subjective 79 yo male reports feeling well. He denies any new symptoms. Review of Systems Review of Systems: All systems reviewed & are unremarkable except as noted in HPI & below Physical Exam Physical Exam: Constitutional: WD/WN, vitals as above Eyes: PERRL, conjunctivae normal, anicteric sclerae ENMT: external ear and nose normal, oropharynx normal Ears: + hearing impa irment Speaks slowly Neck: normal visual inspection Respiratory: normal respiratory effort, lungs clear to auscultation Cardiovascular: RRR, no murmur, no edema Gastrointestinal (Abdomen): normal bowel sounds, soft, nontender, no hepatosplenomegaly Musculoskeletal: no cyanosis or clubbing, extremities motor strength 5/5 Skin: no rashes, warm and dry Psychiatric: Awake, alert, oriented to person and place Results & Data Vital Signs (Past 12 Hours) Vital Signs Temp Pulse Pulse Resp BP BP Pulse Ox 08/05/19 20:06 36.5 C 75 18 108/54 L 97 08/05/19 15:08 36.9 C 61 18 118/57 L 95 08/05/19 11:52 36.6 C 56 L 18 104/52 L 94 PG Care Time/CCT Total # of Minutes Spent Total Time Spent with Patient: Total time spent is greater than 50% in coordination of care (as documented) at patient's floor/unit and/or counseling patient: (1) ST elevation myocardial infarction (STEMI) Involved coronary artery: unspecified coronary artery Qualified Code(s): I21.3 - ST elevation (STEMI) myocardial infarction of unspecified site
[2019-08-06] MEDS: ATORVASTATIN 40 MG TAB PO SCH (07:26)
[2019-08-06] MEDS: AMLODIPINE BESYLATE 5 MG TAB PO SCH (07:26)
[2019-08-06] MEDS: METOPROLOL TARTRATE 50 MG TAB PO SCH ×2 (07:27→21:01)
[2019-08-06] MEDS: FAMOTIDINE 20 MG TAB PO SCH ×2 (07:27→21:01)
[2019-08-06] MEDS: CLOPIDOGREL BISULFATE 75 MG TAB PO SCH (07:27)
[2019-08-06] MEDS: ISOSORBIDE MONO EXTENDED REL 60 MG TABCR PO SCH (07:27)
[2019-08-06] MEDS: ASPIRIN 81 MG ECTAB PO SCH (07:28)
[2019-08-06] MEDS: DOCUSATE SODIUM 100 MG CAP PO SCH (07:28)
[2019-08-06] MEDS: INSULIN ASPART 100 UNITS/ML 3 ML PEN SC SCH ×4 (08:59→21:04)
[2019-08-06] MEDS: cefTRIAXone SODIUM 1,000 MG in DEXTROSE 5% 50 ML IV SCH (19:57)
--- NOTE | 2019-08-06 21:21 | Hospitalist Progress Note ---
Date of Service August 06, 2019 Assessment & Plan (1) Delirium: Patient was admitted for ACS, and STEMI. However during hospital stay he has developed severe delirium and agitation. Patient has been removing his tele monitor off his chest and tries to remove his resendez. Patient had been improving on 08/05 but on 08/06 he has become more agitated. Will transfer him off the tele floor and get him a room with abetter view to see if this helps with the delirium. Plan was to discharge patient home on 08/06 but due to his severe agitation this was cancelled. unsure if the son can manage his father in this state. (2) ACS (acute coronary syndrome): Patient is a pleasant 79yo M PMH chronic diastolic CHF, CKD III, HTN, HLD, CAD s/p bare metal stent of LAD (2011), admitted for STEMI. ACS/STEMI -Appreciate cardiology input -Transferred to ICU from lab systems analyst -reviewed echo. Trended trop. Patient has improved, and is out of the ICU. will continue on heparin drip to complete 48 hours -Pt loaded with plavix; DAPT rec'd x 1 year -Titrate home meds, including BB, amlodipine, nitrate, statin Hx of stent, 2011 -Pt poor candidate for CABG CHF, NYHA III -Echo ordered and reviewed CKD III -Cr stable; cont to monitor HTN/HLD -titrate meds as tolerated as above (3) ST elevation myocardial infarction (STEMI): (4) Hx of heart artery stent: (5) CHF (congestive heart failure), NYHA class III: (6) CKD (chronic kidney disease), stage III: (7) HTN (hypertension): (8) Hyperlipidemia: Subjective Patient is very confused and agitated. Uanble to privde signifcant history. Review of Systems Review of Systems: All systems reviewed & are unremarkable except as noted in HPI & below Physical Exam Physical Exam: Constitutional: WD/WN, vitals as above Eyes: PERRL, conjunctivae normal, anicteric sclerae ENMT: external ear and nose normal, oropharynx normal Ears: + hearing impairment Speaks slowly Neck: normal visual inspection Respiratory: normal respiratory effort, lungs clear to auscultation Cardiovascular: RRR, no murmur, no edema Gastrointestinal (Abdomen): normal bowel sounds, soft, nontender, no hepatosplenomegaly Musculoskeletal: no cyanosis or clubbing, extremities motor strength 5/5 Skin: no rashes, warm and dry Psychiatric: Awake, alert, oriented to person and place Results & Data Vital Signs (Past 12 Hours) Vital Signs Temp Pulse Resp BP BP Pulse Ox 08/06/19 20:05 36.6 C 78 16 129/63 90 08/06/19 14:59 36.4 C L 71 18 127/61 95 08/06/19 11:55 36.4 C L 66 18 105/65 98 PG Care Time/CCT Total # of Minutes Spent Total Time Spent with Patient: Total time spent is greater than 50% in coordination of care (as documented) at patient's floor/unit and/or counseling patient: (1) ST elevation myocardial infarction (STEMI) Involved coronary artery: unspecified coronary artery Qualified Code(s): I21.3 - ST elevation (STEMI) myocardial infarction of unspecified site
[2019-08-06] MEDS: LORazepam 0.5 MG/1 ML VIAL IV PRN (22:01)
[2019-08-07] MEDS: LORazepam 0.5 MG/1 ML VIAL IV PRN (02:52)
[2019-08-07] MEDS: AMLODIPINE BESYLATE 5 MG TAB PO SCH (08:49)
[2019-08-07] MEDS: CLOPIDOGREL BISULFATE 75 MG TAB PO SCH (08:51)
[2019-08-07] MEDS: ATORVASTATIN 40 MG TAB PO SCH (08:51)
[2019-08-07] MEDS: ISOSORBIDE MONO EXTENDED REL 60 MG TABCR PO SCH (08:51)
[2019-08-07] MEDS: ASPIRIN 81 MG ECTAB PO SCH (08:52)
[2019-08-07] MEDS: FAMOTIDINE 20 MG TAB PO SCH ×2 (08:52→20:27)
[2019-08-07] MEDS: METOPROLOL TARTRATE 50 MG TAB PO SCH ×2 (08:53→20:28)
[2019-08-07] MEDS: DOCUSATE SODIUM 100 MG CAP PO SCH (08:53)
[2019-08-07] MEDS: INSULIN ASPART 100 UNITS/ML 3 ML PEN SC SCH ×4 (09:01→22:04)
[2019-08-07 09:51] LABS: Basophils # (auto) 0.01 K/uL (0-0.2); Basophils % (auto) 0.1 %; Eosinophils # (auto) 0.41 K/uL (0-0.5); Eosinophils % (auto) 4.7 %; Hematocrit (blood only) 47.9 % (42-52); Hemoglobin 16.6 g/dL (14.0-18.0); Immature Granulocytes # (auto) 0.01 K/uL (0.00-0.02); Immature Granulocytes % (auto) 0.1 %; Lymphocytes # (auto) 1.14 K/uL (1.2-3.4); Lymphocytes % (auto) 13.1 %; Mean Corpuscular Hemoglobin 31.9 pg (25-34); Mean Corpuscular Hgb Conc 34.7 g/dL (32-36); Mean Corpuscular Volume 91.9 fL (80-100); Mean Platelet Volume 12.1 fL (7.4-10.4); Monocytes # (auto) 0.99 K/uL (0.11-0.59); Monocytes % (auto) 11.3 %; Neutrophils # (auto) 6.17 K/uL (1.4-6.5); Neutrophils % (auto) 70.7 %; Platelet Count 173 K/uL (130-400); RDW Coefficient of Variation 13.1 % (11.5-14.5); RDW Standard Deviation 43.5 fL (36.4-46.3); Red Blood Count 5.21 M/uL (4.7-6.1); White Blood Count 8.73 K/uL (4.8-10.8)
[2019-08-07 10:23] LABS: Albumin Level 2.7 gm/dl (3.4-5.0); BUN Creatinine Ratio 17.7 (10-20); Calcium 9.2 mg/dl (8.5-10.1); Creatinine Clr Calc Pharmacy 43.6 ml/min; Est GFR (African American) 54.4; Potassium 3.9 mmol/L (3.5-5.1)
[2019-08-07 10:26] LABS: Albumin Globulin Ratio 0.6 (0.9-2); Globulin 4.4 gm/dl (2.5-4.0); Total Protein 7.1 gm/dl (6.4-8.2)
--- NOTE | 2019-08-07 12:06 | Psychiatric Consultation ---
Date of Consultation August 07, 2019 Impression / Recommendations Impression 79 yo male with rather acute change in mental status consistent with delirium during hospitalization. Typical medical w/u encouraged with ?head imaging to rule out acute anoxic event (can certainly monitor course), repeat UA, etc. curtains were closed in room during day so maintain environmental interventions for delirium as able. Minimize Ativan. Primary team could consider Haldol IV 1 mg q6 hr prn if on tele or if able to take PO Zyprexa 2.5 mg po hs or BID. Liaison to contact family for more collateral history. Psych History Identifying Data 79 yo male admit to medical floor with ACS and STEMI. / Chief Complaint delirium. History of Present Illness patient transferred from ICU and prepping for discharge when became acutely delirious. No prior psych hx. family reported inability to manage him at home with confusion. After a few more hours was pulling at Blue and tugging at Tele. Now on 1-on-1 with orienting measures. Last administered Ativan IV around 2 am. Past Psychiatric History Previous Psych History: none known Allergies Allergy/AdvReac Type Severity Reaction Status Date / Time No Known Allergies Allergy Unknown Verified 08/03/19 00:25 Home Medications Home Medications Medication Instructions Recorded Confirmed Type isosorbide mononitrate 120 mg 240 mg PO DAILY #180 tab 04/01/19 08/03/19 Rx tablet,extended release 24 hr amlodipine 10 mg tablet 10 mg PO DAILY 06/09/19 08/03/19 History aspirin 81 mg tablet,delayed 81 mg PO DAILY 06/09/19 08/03/19 History release atenolol 100 mg tablet 100 mg PO DAILY 06/09/19 08/03/19 History atorvastatin 80 mg tablet 80 mg PO DAILY #90 tab 06/09/19 08/03/19 Rx docusate sodium 100 mg capsule 100 mg PO DAILY 06/09/19 08/03/19 History furosemide 20 mg tablet 20 mg PO DAILY tab 06/09/19 08/03/19 History glimepiride 2 mg tablet 2 mg PO QAM 06/09/19 08/03/19 History nitroglycerin 0.4 mg sublingual See Rx Instructions SL Q5M PRN 06/09/19 08/03/19 History tablet ranitidine HCl 150 mg capsule 150 mg PO BID 06/09/19 08/03/19 History Family History patient is unable to provide Personal History Living Arrangements: Home Employment Status: Retired Beliefs That Will Affect Care: None Patient History Medical History CHF (congestive heart failure), NYHA class III (Acute 10/05/14) Elevated troponin (Acute) Generalized weakness (Acute) Myocardial infarction Surgical History Hx of heart artery stent Social History Communication Ability: Effective Beliefs That Will Affect Care: None Current Living Situation: Family Feels Safe at Home: Yes Smoking Status: Former smoker Hx Substance Use: No Physical Exam Mental Examination: is wearing hearing aides but doesn't seem to work well, adentulous, speech is rather garbled, some facial asymmetry of movement/no known baseline. Sitter reports moving all extremeties symmetrically. Unable to answer where he is, falls back to sleep. Unable to complete mini-cog assessment. Vital Signs (Past 24 Hours): Last Vital Signs Temp 36.6 C 08/07/19 09:14 Pulse 56 L 08/07/19 09:14 Resp 20 08/07/19 09:14 BP 133/83 08/07/19 09:14 Pulse Ox 96 08/07/19 09:14 Review of Systems Unobtainable due to cognitive status Results & Data Medications Administered Amlodipine Besylate (Norvasc) 10 mg PO DAILY [facility] Stop: 09/02/19 08:59 Last Admin: 08/07/19 08:49 Dose: 10 mg Documented by: [id number] Admin: 08/06/19 07:26 Dose: 10 mg Documented by: [id number] Admin: 08/05/19 08:38 Dose: 10 mg Documented by: [id number] Admin: 08/04/19 07:58 Dose: 10 mg Documented by: [id number] Admin: 08/03/19 09:50 Dose: 10 mg Documented by: [id number] Aspirin (Ecotrin Ectab) 81 mg PO DAILY [facility] Stop: 09/02/19 08:59 Last Admin: 08/07/19 08:52 Dose: 81 mg Documented by: [id number] Admin: 08/06/19 07:28 Dose: 81 mg Documented by: [id number] Admin: 08/05/19 08:37 Dose: 81 mg Documented by: [id number] Admin: 08/04/19 07:56 Dose: 81 mg Documented by: [id number] Admin: 08/03/19 09:51 Dose: 81 mg Documented by: [id number] Atorvastatin Calcium (Lipitor) 80 mg PO DAILY [facility] Stop: 09/02/19 08:59 Last Admin: 08/07/19 08:51 Dose: 80 mg Documented by: [id number] Admin: 08/06/19 07:26 Dose: 80 mg Documented by: [id number] Admin: 08/05/19 08:38 Dose: 80 mg Documented by: [id number] Admin: 08/04/19 07:58 Dose: 80 mg Documented by: [id number] Admin: 08/03/19 09:51 Dose: 80 mg Documented by: [id number] Clopidogrel Bisulfate (Plavix) 75 mg PO QAM [facility] Stop: 09/02/19 08:59 Last Admin: 08/07/19 08:51 Dose: 75 mg Documented by: [id number] Admin: 08/06/19 07:27 Dose: 75 mg Documented by: [id number] Admin: 08/05/19 08:38 Dose: 75 mg Documented by: [id number] Admin: 08/04/19 07:51 Dose: 75 mg Documented by: [id number] Admin: 08/03/19 09:49 Dose: 75 mg Documented by: [id number] Docusate Sodium (Colace) 100 mg PO DAILY [facility] Stop: 09/02/19 08:59 Last Admin: 08/07/19 08:53 Dose: 100 mg Documented by: [id number] Admin: 08/06/19 07:28 Dose: 100 mg Documented by: [id number] Admin: 08/05/19 09:12 Dose: 100 mg Documented by: [id number] Admin: 08/04/19 07:57 Dose: 100 mg Documented by: [id number] Admin: 08/03/19 09:50 Dose: 100 mg Documented by: [id number] Famotidine (Pepcid) 20 mg PO BID [facility] Stop: 09/02/19 20:59 Last Admin: 08/07/19 08:52 Dose: 20 mg Documented by: [id number] Admin: 08/06/19 21:01 Dose: 20 mg Documented by: [id number] Admin: 08/06/19 07:27 Dose: 20 mg Documented by: [id number] Admin: 08/05/19 20:33 Dose: 20 mg Documented by: [id number] Admin: 08/05/19 08:37 Dose: 20 mg Documented by: [id number] Admin: 08/04/19 23:04 Dose: Not Given Documented by: [id number] Admin: 08/04/19 07:57 Dose: 20 mg Documented by: [id number] Admin: 08/03/19 20:28 Dose: 20 mg Documented by: [id number] Acetaminophen (Ofirmev) 1,000 mg in 100 mls @ 400 mls/hr IV Q8H PRN PRN Reason: Pain or Fever Stop: 08/08/19 00:12 Last Infusion: 08/05/19 01:08 Dose: 0 mls/hr Documented by: [id number] Admin: 08/05/19 00:53 Dose: 400 mls/hr Documented by: [id number] Ceftriaxone Sodium 1,000 mg/ (Dextrose) 50 mls @ 100 mls/hr IV Q24H [facility]; Protocol Stop: 08/10/19 00:59 Last Infusion: 08/06/19 20:27 Dose: 0 mls/hr Documented by: [id number] Admin: 08/06/19 19:57 Dose: 100 mls/hr Documented by: [id number] Infusion: 08/05/19 21:49 Dose: 0 mls/hr Documented by: [id number] Infusion: 08/05/19 20:40 Dose: 100 mls/hr Documented by: [id number] Infusion: 08/05/19 20:34 Dose: 0 mls/hr Documented by: [id number] Admin: 08/05/19 20:32 Dose: 100 mls/hr Documented by: [id number] Infusion: 08/05/19 01:39 Dose: 0 mls/hr Documented by: [id number] Admin: 08/05/19 01:09 Dose: 100 mls/hr Documented by: [id number] Lorazepam (Ativan) 0.5 mg in 1 mls @ 1 mls/min IV Q4H PRN PRN Reason: Agitation Stop: 09/05/19 21:32 Last Admin: 08/07/19 02:52 Dose: 1 mls/min Documented by: [id number] Admin: 08/06/19 22:01 Dose: 1 mls/min Documented by: [id number] Insulin Aspart (Novolog Flexpen) 0 units SC ACHS [facility] Stop: 09/03/19 11:29 Last Admin: 08/07/19 09:01 Dose: Not Given Documented by: [id number] Admin: 08/06/19 21:04 Dose: Not Given Documented by: [id number] Cosigned by: [id number] Admin: 08/06/19 16:47 Dose: Not Given Documented by: [id number] Cosigned by: [id number] Admin: 08/06/19 11:56 Dose: Not Given Documented by: [id number] Cosigned by: [id number] Admin: 08/06/19 08:59 Dose: Not Given Documented by: [id number] Cosigned by: [id number] Admin: 08/05/19 20:34 Dose: Not Given Documented by: [id number] Cosigned by: [id number] Isosorbide Mononitrate (Imdur Extended Rel) 240 mg PO DAILY [facility] Stop: 09/02/19 08:59 Last Admin: 08/07/19 08:51 Dose: 240 mg Documented by: [id number] Admin: 08/06/19 07:27 Dose: 240 mg Documented by: [id number] Admin: 08/05/19 08:38 Dose: 240 mg Documented by: [id number] Admin: 08/04/19 07:54 Dose: 240 mg Documented by: [id number] Admin: 08/03/19 09:50 Dose: 240 mg Documented by: [id number] Metoprolol Tartrate (Lopressor) 50 mg PO BID [facility] Stop: 09/02/19 08:59 Last Admin: 08/07/19 08:53 Dose: 50 mg Documented by: [id number] Admin: 08/06/19 21:01 Dose: 50 mg Documented by: [id number] Admin: 08/06/19 07:27 Dose: 50 mg Documented by: [id number] Admin: 08/05/19 20:33 Dose: 50 mg Documented by: [id number] Admin: 08/05/19 08:37 Dose: 50 mg Documented by: [id number] Admin: 08/04/19 23:04 Dose: Not Given Documented by: [id number] Admin: 08/04/19 07:55 Dose: 50 mg Documented by: [id number] Admin: 08/03/19 20:28 Dose: 50 mg Documented by: [id number] Admin: 08/03/19 09:52 Dose: Not Given Documented by: [id number] Coding Level of Care Code 45376 [facility]osp Care Lvl 2
[2019-08-07] MEDS: cefTRIAXone SODIUM 1,000 MG in DEXTROSE 5% 50 ML IV SCH (19:16)
[2019-08-07] MEDS: OLANZAPINE 2.5 MG TAB PO SCH (20:28)
--- NOTE | 2019-08-07 21:50 | Hospitalist Progress Note ---
Date of Service August 07, 2019 Assessment & Plan (1) Delirium: Patient was admitted for ACS, and STEMI. However during hospital stay he has developed severe delirium and agitation. Patient has been removing his tele monitor off his chest and tries to remove his resendez. Patient had been improving on 08/05 but on 08/06 he has become more agitated. 08/07, more lethargic. Will transfer him off the tele floor and get him a room with a better view to see if this helps with the delirium. However due to his agitation, he had to be moved back to 2nd floor to [address] [place] [address] for one to one. Plan was to discharge patient home on 08/06 and tried on 08/07 but due to his severe agitation and confusion this was cancelled. unsure if the son can manage his father in this state. Had discussion with son, who states he can handle his dad at home. His son is the 24 hour caregiver, but also has to take care of his mother. Expressed concerns over safety and stated to the son, if he can come and visit his father to see the state that he is in. Once present, if son still feels he can take care of the patient, after hearing the concern over his safety, then he would be discharged. Once admission, there did not appear to be signs of neglect. Son agreed to come in, but did not show up on 08/07 prior to 7 pm. Consulted psych for input on med rec recommendations. (2) ACS (acute coronary syndrome): Patient is a pleasant 79yo M PMH chronic diastolic CHF, CKD III, HTN, HLD, CAD s/p bare metal stent of LAD (2011), admitted for STEMI. ACS/STEMI -Appreciate cardiology input -Transferred to ICU from laborer electroplating -reviewed echo. Trended trop. peakec at 50. Patient has improved, and is out of the ICU. will continue on heparin drip to complete 48 hours/ this has been completed. -Pt loaded with plavix; DAPT rec'd x 1 year -Titrate home meds, including BB, amlodipine, nitrate, statin -From cardiac standpoin, cleared for discharge. Hx of stent, 2011 -Pt poor candidate for CABG CHF, NYHA III -Echo ordered and reviewed CKD III -Cr stable; cont to monitor HTN/HLD -titrate meds as tolerated as above (3) ST elevation myocardial infarction (STEMI): (4) Hx of heart artery stent: (5) CHF (congestive heart failure), NYHA class III: (6) CKD (chronic kidney disease), stage III: (7) HTN (hypertension): (8) Hyperlipidemia: Subjective Overnight: patient received lorazepam by overnight resident. Patient is drowsy and confused. Not providing history Review of Systems Review of Systems: Unobtainable due to reduced consciousness Physical Exam Physical Exam: Constitutional: WD/WN, vitals as above Eyes: PERRL, conjunctivae normal, anicteric sclerae ENMT: external ear and nose normal, oropharynx normal Ears: + hearing impairment Speaks slowly Neck: normal visual inspection Respiratory: normal respiratory effort, lungs clear to auscultation Cardiovascular: RRR, no murmur, no edema Gastrointestinal (Abdomen): normal bowel sounds, soft, nontender, no hepatosplenomegaly Musculoskeletal: no cyanosis or clubbing Skin: no rashes, warm and dry Psychiatric: lethargic, Results & Data Vital Signs (Past 12 Hours) Vital Signs Temp Pulse Resp BP Pulse Ox 08/07/19 15:05 36.5 C 54 L 21 127/72 98 PG Care Time/CCT Total # of Minutes Spent Total Time Spent with Patient: Total time spent is greater than 50% in coordination of care (as documented) at patient's floor/unit and/or counseling patient: (1) ST elevation myocardial infarction (STEMI) Involved coronary artery: unspecified coronary artery Qualified Code(s): I21.3 - ST elevation (STEMI) myocardial infarction of unspecified site
[2019-08-08] MEDS: FAMOTIDINE 20 MG TAB PO SCH (08:54)
[2019-08-08] MEDS: ASPIRIN 81 MG ECTAB PO SCH (08:56)
[2019-08-08] MEDS: ATORVASTATIN 40 MG TAB PO SCH (08:56)
[2019-08-08] MEDS: OLANZAPINE 2.5 MG TAB PO SCH (08:56)
[2019-08-08] MEDS: AMLODIPINE BESYLATE 5 MG TAB PO SCH (08:57)
[2019-08-08] MEDS: CLOPIDOGREL BISULFATE 75 MG TAB PO SCH (08:57)
[2019-08-08] MEDS: METOPROLOL TARTRATE 50 MG TAB PO SCH (08:57)
[2019-08-08] MEDS: ISOSORBIDE MONO EXTENDED REL 60 MG TABCR PO SCH (08:57)
[2019-08-08] MEDS: INSULIN ASPART 100 UNITS/ML 3 ML PEN SC SCH ×2 (08:58→12:03)
[2019-08-08] MEDS: DOCUSATE SODIUM 100 MG CAP PO SCH (09:03)
--- NOTE | 2019-08-08 09:10 | Cardiology Progress Note ---
Date of Service August 08, 2019 Assessment & Plan (1) ST elevation myocardial infarction (STEMI): (2) CAD (coronary artery disease): (3) Hyperlipidemia: (4) HTN (hypertension): (5) Delirium: ASSESSMENT/PLAN: 1. STEMI: Peak troponin was 50. No further angina reported. Medically managed for occluded diagonal, thought to be culprit lesion based on ST elevations in the lateral leads on presentation. Continue aspirin 81 mg daily indefinitely given prior PCI. Continue Plavix 75 mg daily for a year if no contraindication for aggressive medical therapy. Continue high-intensity statin therapy, beta- yesi, calcium channel yesi, and nitrate therapy. Offer cardiac rehab if able to participate. 2. CAD status post PCI: Prior LAD PCI. No PCI done this hospitalization. Continue anti-platelet therapy as noted above. Continue other medical therapy. No further angina. 3. Hypertension: Blood pressure adequately controlled. Continue current regimen. 4. Dyslipidemia: Continue high-intensity statin therapy. 5. Delirium: As per primary service. 6. Disposition: Cardiology will sign off at this time. Please call with any other questions or concerns. Follow-up in cardiology office in 1 week. Subjective Patient was somnolent but was able to answer questions. He denies chest pain, shortness of breath, or any other pain. He asked when he could go home. He is no longer under 1-1 supervision. No family was present at the bedside. Review of systems: As above. Physical Exam Physical Exam: Gen.: No acute distress. Alert and oriented to self, place. He was not oriented to month. HEENT: Anicteric sclera. Neck: No JVD. Cardiac: Regular. Normal S1-S2. No murmurs, rubs, or gallops. Pulmonary: Clear to auscultation bilaterally without wheezes, rales, or rhonchi. Abdomen: Soft, nontender, nondistended, with normoactive bowel sounds. No bruits noted. Extremities: No edema or cyanosis. No palpable cords. Results & Data Vital Signs (Past 12 Hours) Vital Signs Temp Pulse Resp BP Pulse Ox 08/07/19 22:51 36.7 C 59 L 15 128/68 97 Laboratory Results Laboratory Results - last 24 hr 08/07/19 08/07/19 08/07/19 09:35 09:35 11:26 WBC 8.73 RBC 5.21 Hgb 16.6 Hct 47.9 MCV 91.9 MCH 31.9 MCHC 34.7 RDW Std Deviation 43.5 RDW Coeff of Leo 13.1 Plt Count 173 MPV 12.1 H Immature Gran % (Auto) 0.1 Neut % (Auto) 70.7 Lymph % (Auto) 13.1 [place] % (Auto) 11.3 Eos % (Auto) 4.7 Baso % (Auto) 0.1 Immature Gran # (Auto) 0.01 Neut # (Auto) 6.17 Lymph # (Auto) 1.14 L [place] # (Auto) 0.99 H Eos # (Auto) 0.41 Baso # (Auto) 0.01 Sodium 138 Potassium 3.9 Chloride 109 H Carbon Dioxide 25 Anion Gap 4.0 BUN 25 H Creatinine 1.42 H Est Cr Clr Drug Dosing 43.6 Est GFR ( Amer) 54.4 Est GFR (Non-Af Amer) 47.0 BUN/Creatinine Ratio 17.7 Glucose 137 H POC Glucose 98 Calcium 9.2 Total Bilirubin 1.0 AST 68 H ALT 49 Alkaline Phosphatase 117 Total Protein 7.1 Albumin 2.7 L Globulin 4.4 H Albumin/Globulin Ratio 0.6 L 08/07/19 08/07/19 08/08/19 16:18 21:48 08:01 WBC RBC Hgb Hct MCV MCH MCHC RDW Std Deviation RDW Coeff of Leo Plt Count MPV Immature Gran % (Auto) Neut % (Auto) Lymph % (Auto) [place] % (Auto) Eos % (Auto) Baso % (Auto) Immature Gran # (Auto) Neut # (Auto) Lymph # (Auto) [place] # (Auto) Eos # (Auto) Baso # (Auto) Sodium Potassium Chloride Carbon Dioxide Anion Gap BUN Creatinine Est Cr Clr Drug Dosing Est GFR ( Amer) Est GFR (Non-Af Amer) BUN/Creatinine Ratio Glucose POC Glucose 100 H 121 H 89 Calcium Total Bilirubin AST ALT Alkaline Phosphatase Total Protein Albumin Globulin Albumin/Globulin Ratio Diagnostic Findings Echo report reviewed from 08/03/2019: Mildly reduced LV systolic function. EF 40-45%. Most of the apex is akinetic or dyskinetic, with better function involving the posterior apex. Mild AI. Sclerotic aortic valve. Cardiac catheterization 08/03/2019 report reviewed: Summary: 1. Severe multivessel coronary artery disease -Patent proximal LAD stent 70% earlymid stenosis. 60% first diagonal. 100% mid second diagonal (possible acute culprit). 95% ostial circumflex 95% ostial RCA, 100% chronic mid RCA occlusion. PDA fills via [id number] collaterals. 2. Borderline intracardiac filling pressure Recommendations: Patient with severe, chronic multivessel disease not significantly changed from last catheterization here in 2011. Biggest change from then to now is occlusion of mid RCA and second diagonal. Second diagonal may represent acute culprit. Feel attempted intervention to this vessel would be high risk in the setting of patient's comorbidities. Patient was chest pain-free on nitro infusion and will plan to manage his ACS medically. Medications Administered Current Inpatient Medications Amlodipine Besylate (Norvasc) 10 mg PO DAILY [facility] Stop: 09/02/19 08:59 Last Admin: 08/08/19 08:57 Dose: 10 mg Documented by: Aspirin (Ecotrin Ectab) 81 mg PO DAILY [facility] Stop: 09/02/19 08:59 Last Admin: 08/08/19 08:56 Dose: 81 mg Documented by: Atorvastatin Calcium (Lipitor) 80 mg PO DAILY [facility] Stop: 09/02/19 08:59 Last Admin: 08/08/19 08:56 Dose: 80 mg Documented by: Clopidogrel Bisulfate (Plavix) 75 mg PO QAM [facility] Stop: 09/02/19 08:59 Last Admin: 08/08/19 08:57 Dose: 75 mg Documented by: Dextrose (Dextrose 50%) 25 - 50 ml IV UD PRN; Protocol PRN Reason: Hypoglycemia Protocol Stop: 09/04/19 16:59 Docusate Sodium (Colace) 100 mg PO DAILY [facility] Stop: 09/02/19 08:59 Last Admin: 08/08/19 09:03 Dose: 100 mg Documented by: Famotidine (Pepcid) 20 mg PO BID [facility] Stop: 09/02/19 20:59 Last Admin: 08/08/19 08:54 Dose: 20 mg Documented by: Glucagon (Glucagen) 1 mg IM UD PRN; Protocol PRN Reason: Hypoglycemia Protocol Stop: 09/04/19 16:59 Glucose (Glucose 40%) 15 - 30 gm PO UD PRN; Protocol PRN Reason: Hypoglycemia Protocol Stop: 09/04/19 16:59 Glucose (Dex4 Glucose) 4 - 8 tabs PO UD PRN; Protocol PRN Reason: Hypoglycemia Protocol Stop: 09/04/19 16:59 Ceftriaxone Sodium 1,000 mg/ (Dextrose) 50 mls @ 100 mls/hr IV Q24H [facility]; Protocol Stop: 08/10/19 00:59 Last Infusion: 08/07/19 19:49 Dose: Infused Documented by: Insulin Aspart (Novolog Flexpen) 0 units SC ACHS [facility] Stop: 09/03/19 11:29 Last Admin: 08/08/19 08:58 Dose: Not Given Documented by: Isosorbide Mononitrate (Imdur Extended Rel) 240 mg PO DAILY [facility] Stop: 09/02/19 08:59 Last Admin: 08/08/19 08:57 Dose: 240 mg Documented by: Metoprolol Tartrate (Lopressor) 50 mg PO BID [facility] Stop: 09/02/19 08:59 Last Admin: 08/08/19 08:57 Dose: 50 mg Documented by: Miscellaneous (Carbohydrates For Hypoglycemia) 15 - 30 gm PO UD PRN PRN Reason: Hypoglycemia Treatment Stop: 09/04/19 16:59 Nitroglycerin (Nitrostat) 0 mg SL Q5M PRN PRN Reason: Chest Pain Stop: 09/02/19 01:26 Olanzapine (Zyprexa) 2.5 mg PO BID [facility] Stop: 09/06/19 20:59 Last Admin: 08/08/19 08:56 Dose: 2.5 mg Documented by: PG Care Time/CCT Total # of Minutes Spent Total Time Spent with Patient: Total time spent is greater than 50% in coordination of care (as documented) at patient's floor/unit and/or counseling patient: (1) ST elevation myocardial infarction (STEMI) Involved coronary artery: unspecified coronary artery Qualified Code(s): I21.3 - ST elevation (STEMI) myocardial infarction of unspecified site
--- NOTE | 2019-08-08 16:34 | Discharge Summary ---
Date of Service August 08, 2019 Admission HPI Per Admitting Provider Patient is a pleasant 79yo M PMH chronic diastolic CHF, CKD III, HTN, HLD, CAD s/p bare metal stent of LAD (2011). After PCI in 2011, patient was evaluated for CABG, but was deemed to not be a candidate. Family not present at time of interview, thus history provided by staff involved in case. Patient presented this evening as a heart alert from the field. Reportedly, he was experiencing sharp, L sided chest pain 1 hour prior to arrival. Patient has history of anginal pain which comes and goes but this pain was persistent. This was a/w some dyspnea and nausea. Patient denies feeling lightheaded, ass'd palpitations. Unclear whether this was a/w exertion or not. EKG from the field showed ant/lateral ST elevation. These resolved after nitro administration, but his chest pain did not resolve therefore he was taken to cardiac lab nurse. He was found to have severe multivessel disease with patent prox LAD stent. Mid RCA and 2nd diagonal occlusion. Intervention was felt to be high risk, and therefore plan is to manage medically. He was transferred to ICU for further evaluation Admission Exam Per Admitting Provider Constitutional: WD/WN, vitals as above Eyes: PERRL, conjunctivae normal, anicteric sclerae ENMT: external ear and nose normal, oropharynx normal Ears: + hearing impairment Speaks slowly Neck: normal visual inspection Respiratory: normal respiratory effort, lungs clear to auscultation Cardiovascular: RRR, no murmur, no edema Gastrointestinal (Abdomen): normal bowel sounds, soft, nontender, no hepatosplenomegaly Musculoskeletal: no cyanosis or clubbing, extremities motor strength 5/5 Skin: no rashes, warm and dry Psychiatric: A+Ox3, euthymic affect Principal Diagnosis Acute coronary syndrome/STEMI and UTI Discharge Exam General: In NAD, compliant with exam Neuro: A&O x 3 (person, place and situation, not time - which is his baseline); not agitated Pulm: CTAB equal breath sounds bilaterally CV: RRR, no m/r/g Abdomen:+BS, no TTP in all quadrants, non-distended LE: no LE edema, no calf TTP Discharge Data Allergies Allergy/AdvReac Type Severity Reaction Status Date / Time No Known Drug Allergies Allergy Verified 08/09/19 07:07 Consultations 08/03/19 01:20 Consult Case Management - Discharge Planning Routine Consult Court Magistrate Routine 08/03/19 15:41 Consult Cardiology Routine 08/07/19 09:55 Consult Psychiatry Routine Procedures Performed Operation Date: 08/03/19 00:00 Actual Procedures s Cineradiography w/Routine Exam - Tristan Zarco MD p Cath, Left with Cors and Vent - Tristan Zarco MD Ordered Studies 08/03/19 00:06 CL Cath Imgs for PACS use only Stat Hospital Course (1) CAD (coronary artery disease): (2) Delirium: (3) HTN (hypertension): (4) CKD (chronic kidney disease), stage III: (5) ACS (acute coronary syndrome): 79yo M PMH chronic diastolic CHF, CKD III, HTN, HLD, CAD s/p bare metal stent of LAD (2011), admitted for STEMI. Later developed delirium as well and received treatment for UTI. ACS/STEMI - Hx of HTN/HLD/CAD Hx of stent, 2011. Pt poor candidate for CABG Cath: Occluded diagonal medical management only Trop. peaked at 50 Received Heparin drip x 48 hrs Pt loaded with plavix; DAPT rec'd x 1 year -continued home aspirin 81 mg daily started on Plavix of 75 mg daily Discharged on metoprolol 50mg BID instead of home atenolol 100mg daily, continued home amlodipine, isosorbide mononitrate 240mg daily and atorvastatin 80mg daily; nitroglycerin as needed Follow-up with cardiology in 1 week UTI Urine culture grew Proteus mirabilis greater than 100 K, pansensitive Received Rocephin 3 days Discharged on Keflex 500 mg every 12 x4 days Delirium Likely in the setting of acute illness/UTI Developed severe delirium and agitation during hospital stay-psychiatry was consulted and recommended Haldol or Zyprexa Patient improved and did not need to be discharged on Haldol or Zyprexa Per son father is at baseline and will do better once he returns home and son: Son is an EMT and feels comfortable taking care of his father at home, son is also full 24/7 care provider for mother CHF, NYHA III Echo: EF 40 to 45%, left ventricular systolic function mildly reduced, mild AV sclerosis, mild AR, RV systolic pressure 30-40mmHG, grade 1 diastolic dysfunction, apex motion abnormality Medications as above CKD III Cr stable (6) ST elevation myocardial infarction (STEMI): (7) CHF (congestive heart failure), NYHA class III: Total Time Total Time Spent Total Time Spent (In Minutes): 30mins Discharge Plan Discharge Items Patient Disposition: Home - Self-Care Reason For Visit: ACS Discharge Diagnosis: ACS/STEMI UTI Activity: Per Instructions section Activity Comment: Avoid strenous activity until you are cleared by your aboriginal education teacher Non-emergency contact: Primary Care Provider Call non-emergency contact if: you have any medication questions and your symptoms worsen Follow-up/Referrals: [facility] [place] U[facility] [Provider Group] (Please, follow up at [facility] Urology Office. *A nurse will call you with the appointment information. The office is located at [address] [place] [address] in [place]. If you have any questions, call the office at [phone].) Mp Sanchez III, MD [Primary Care Provider] - 08/11/19 1:45 pm (Please, follow up with Dr. Sanchez on August 11 at 1:45 pm. *If you need to change this appointment, call the office at [phone].) Elva Vega PA-C [Physician Computer Network Support Specialist] - 08/19/19 4:00 pm (Please, follow up at [facility] Cardiology Office with Elva Vega PA-C on ThursdayAugust 19 at 4:00 pm. *The office is located at [address] of [facility], next to this hospital. If you need to change this appointment, call the office at [phone].) Diet: Heart Healthy Addtl Attending Provider Instructions: Mr. Wilson was admitted for concern for chest pain and found to have heart attack. Our cardiologists, heart doctors, recommended medical management at this time. He also became a little agitated during his hospital course but has now improved and is stable to be discharged. He was also treated for a urinary infection. He will require antibiotics for another 4 days starting tomorrow. Please follow the instructions below. New prescriptions have been sent to [facility]'s pharmacy. -Take Keflex 500mg twice a day for another 4 days starting tomorrow morning, antibiotic for urinary infection. -Take Plavix 75mg daily. Prescription for plavix sent to pharmacy. -Continue taking your home aspirin 81mg daily, Isosorbide mononitrate 240mg daily, amlodipine 10mg daily -Stop taking atenolol 100mg daily and instead take metoprolol 50mg twice daily. Prescription sent to pharmacy. -Take your home nitroglycerin as needed for any chest pain -Follow up with cardiology, appointment requested. Our nurse navigator will give you a call. -We are trying to see if he can go home without his resendez and void successfully however if he fails to urinate on his own, he will go home with resendez and follow up with a urologist after discharge, our nurse navigator will help set up this appointment as well -Home health services referral has also been placed. Additional heart attack discharge instructions: Home Care: * Take your medications exactly as directed. Don't skip doses. * Remember that recovery after a heart attack takes time. Plan to rest for at lease 4-8 weeks while you recover. Then return to normal activity when your doctor says it's okay. * Ask your doctor about joining a heart rehabilitation program. * Tell your doctor if you are feeling depressed. Feelings of sadness are common after a heart attack, but it is important that you speak to someone if you are feeling overwhelmed by these feelings. * If you are having chest pain, call 911 for an ambulance. Do NOT drive yourself to the hospital. * Ask your family members to learn CPR. * Learn to take your own blood pressure and pulse. Keep a record of your results. Ask your doctor when you should seek emergency medical attention. He or she will tell you which blood pressure reading is dangerous. Lifestyle Changes: * Maintain a healthy weight. Get help to lose any extra pounds. * Cut back on salt. * Limit canned, dried, packaged, and fast foods. * Don't add salt to your food. * Season foods with herbs instead of salt when you cook. * Break the smoking habit. Enroll in a stop-smoking program to improve your chances of success. * Limit fatty foods. * Ask your doctor about having your lipid levels checked regularly. * Build up your activity according to your doctor's recommendation. * Ask your doctor when it's okay to resume sexual activity. * Tell your doctor about any erectile dysfunction (ED) medication you are taking. Some ED medications are not safe if you take certain heart medications. * Try to manage stress. Pending Studies at Discharge: No Stand-Alone Forms: Call Back Authorization, My [facility], Smoking Cessation Medications and DC Order Prescriptions: New clopidogrel 75 mg Tablet 75 mg PO QAM Qty: 30 RF: 0 metoprolol tartrate 50 mg Tablet 50 mg PO BID Qty: 60 RF: 0 cephalexin [Keflex] 500 mg capsule 500 mg PO BID 4 Days Qty: 8 RF: 0 Continued isosorbide mononitrate 120 mg tablet extended release 24 hr 240 mg PO DAILY Qty: 180 RF: 3 amlodipine 10 mg tablet 10 mg PO DAILY RF: 0 aspirin 81 mg tablet,delayed release (DR/EC) 81 mg PO DAILY RF: 0 docusate sodium 100 mg capsule 100 mg PO DAILY RF: 0 furosemide 20 mg tablet 20 mg PO DAILY RF: 0 glimepiride 2 mg tablet 2 mg PO QAM RF: 0 nitroglycerin [Nitrostat] 0.4 mg tablet, sublingual See Rx Instructions SL Q5M PRN (Reason: Chest Pain) RF: 0 ranitidine HCl 150 mg capsule 150 mg PO BID RF: 0 atorvastatin 80 mg tablet 80 mg PO DAILY Qty: 90 RF: 3 Discontinued atenolol 100 mg tablet 100 mg PO DAILY RF: 0 Discharge Orders: Discharge Order (Routine); Ordered 08/08/19 Ordered By: Irais Han Admission Data Admit Date/Time: 08/03/19 01:20 Attending Provider: Houston Naiton Admit Provider: Tristan Zarco Primary Care Provider: Mp Sanchez III Other Providers: Alok Jaffe ; Tristan Zarco ; Blessing Recinos Other Interventions: Discharge Summary Assessment (RN) Last Done: 08/08/19 14:50 DC Date/Time DO NOT enter until pt leaves facility: 08/08/19 15:35 Supervising Physician Co-Signing Physician Notes Resident Physician Supervision Note: I interviewed and examined the patient. Discussed with Dr. Irais Han and agree with findings and plan as documented in the note. Any exceptions or clarifications are listed here: delirium was likely metabolic encephalopathy 2nd to UTI. Cannot rule out hospital psychosis in setting of an underlying cognitive impairment/dementia process. Additionally, CHF is systolic in nature as EF is 40-45%. He did remain compensated during his stay. 79yo male with known CAD who presented with STEMI. Underwent emergent heart cath showing severe multi-vessel CAD. Culprit vessel was felt to be 2nd diagonal which was occluded in the mid- segment. No intervention was undertaken as it was felt to be too-high risk. Thus, he was medically managed over the hospitalization with 48-hour heparin infusion, aspirin, plavix, statin, etc. Course was complicated by severe metabolic encephalopathy likely due to UTI. Anti-psychotics were employed due to the severity of his confusion. Mental status gradually improved and returned to baseline as confirmed with the patient's son. exam: gen - NAD mouth - MMM neck - no JVD heart - RRR, s1 s2, no murmur lungs - minimal rales bases (dry), no wheeze abd - soft NT ND BS+ ext - no edema psych - a/o x 2 (person, place, remembered he had had a heart attack) Patient will complete a short course of oral antibiotics for his UTI. He was NOT d/c home on anti-psychotics. He will remain on plavix in addition to aspirin, imdur, statin and BB for his CAD. Close cardiology f/u recommended. Since EF is mildly depressed consider addition of FERNANDO/ARB as outpatient if BP will allow. Documented By: Houston Nation MD Resident Activity Tracking Resident Involvement: Resident Care Provided Care Provided: Adult Hospital Medicine
--- NOTE | 2019-08-09 10:25 | Billing Data ---
Coding Level of Care Code D/C Day Management >30 mins
== END 2019-08-08 15:35 | disposition home or self-care (01) | DRG 281 ==
LOC: ED → CC 00:33 → 1E 01:20 → SUATTDRO 01:20 → 1E 22:47 → 2S 08-04 11:17 → 4W 08-06 16:35 → 2N 08-07 06:43

== ENCOUNTER 2019-08-16 11:49 | Inpatient (IN) ==
[2019-08-16 12:56] LABS: Appearance Urine Clear (Clear); Bacteria Urine Automated Negative (Negative); Bilirubin Urine Negative (Negative); Blood Urine 2+ (Negative); Cast Urine Automated 0 /lpf (0-5); Color Urine Dark Yellow; Glucose Urine UA Negative (Negative); Ketones Urine Negative (Negative); Leukocyte Esterase Urine Trace (Negative); Nitrite Urine Negative (Negative); Protein Urine Negative (Negative); RBC Urine Automated 0-4 /hpf (0-4); Specific Gravity Urine 1.018 (1.000-1.030); Urobilinogen Urine Negative (Negative)
[2019-08-16 12:58] LABS: Basophils # (auto) 0.01 K/uL (0-0.2); Basophils % (auto) 0.1 %; Eosinophils # (auto) 0.01 K/uL (0-0.5); Eosinophils % (auto) 0.1 %; Hematocrit (blood only) 50.8 % (42-52); Hemoglobin 17.6 g/dL (14.0-18.0); Immature Granulocytes # (auto) 0.03 K/uL (0.00-0.02); Immature Granulocytes % (auto) 0.2 %; Lymphocytes # (auto) 0.73 K/uL (1.2-3.4); Lymphocytes % (auto) 4.4 %; Mean Corpuscular Hemoglobin 32.2 pg (25-34); Mean Corpuscular Hgb Conc 34.6 g/dL (32-36); Mean Platelet Volume 11.8 fL (7.4-10.4); Monocytes # (auto) 1.67 K/uL (0.11-0.59); Monocytes % (auto) 10.2 %; Neutrophils # (auto) 13.99 K/uL (1.4-6.5); Platelet Count 203 K/uL (130-400); RDW Coefficient of Variation 13.4 % (11.5-14.5); RDW Standard Deviation 45.5 fL (36.4-46.3); Red Blood Count 5.46 M/uL (4.7-6.1); White Blood Count 16.44 K/uL (4.8-10.8)
[2019-08-16 13:15] LABS: Albumin Level 2.7 gm/dl (3.4-5.0); BUN Creatinine Ratio 17.6 (10-20); Calcium 9.8 mg/dl (8.5-10.1); Creatinine Clr Calc Pharmacy 15.8 ml/min; Est GFR (African American) 16.3; Est GFR (Non-African American) 14.1; Potassium 3.9 mmol/L (3.5-5.1)
[2019-08-16 13:18] LABS: Albumin Globulin Ratio 0.6 (0.9-2); Bilirubin,Total 1.4 mg/dl (0.2-1); Globulin 4.9 gm/dl (2.5-4.0); Total Protein 7.6 gm/dl (6.4-8.2)
--- NOTE | 2019-08-16 14:24 | Emergency Department Note ---
Entered by Parminder Villar acting as a scribe for Guanaco Perez DO History of Present Illness General Chief complaint: Abdominal Pain Stated complaint: abd pain Time Seen by Provider: 08/16/19 12:42 Source: patient History of Present Illness Provider complaint: Abdominal pain Onset (ago): day(s) (Couple of days) Location: abdomen Severity: mild Pain Consistency: + constant Relieved By: + other (Voiding) Associated symptoms: + nausea/vomiting and + other (Hematuria ) The patient is a 79 year old male who presents to the Emergency Room with complaints of constant mild abdominal pain that started a couple of days ago. Per the nurse, the patient was complaining of lower abdominal pain upon arrival but after inserting a catheter, the patient drained close to 2L of urine which relieved his symptoms. The nurse also states that the patient was recently diagnosed with a UTI and is on antibiotics. The patient's family informed the nurse that the patient has had nausea and vomiting prior to arrival so the family believes that he is not keeping down his antibiotic. The patient does still have hematuria. HPI is limited secondary to the patient's altered mental status. Home Medications Home Medications Medication Instructions Recorded Confirmed Type isosorbide mononitrate 120 mg 240 mg PO DAILY #180 tab 04/01/19 08/16/19 Rx tablet,extended release 24 hr amlodipine 10 mg tablet 10 mg PO DAILY 06/09/19 08/16/19 History aspirin 81 mg tablet,delayed 81 mg PO DAILY 06/09/19 08/16/19 History release atorvastatin 80 mg tablet 80 mg PO DAILY #90 tab 06/09/19 08/16/19 Rx docusate sodium 100 mg capsule 100 mg PO DAILY 06/09/19 08/16/19 History furosemide 20 mg tablet 20 mg PO DAILY tab 06/09/19 08/16/19 History glimepiride 2 mg tablet 2 mg PO QAM 06/09/19 08/16/19 History nitroglycerin 0.4 mg sublingual See Rx Instructions SL Q5M PRN 06/09/19 08/16/19 History tablet ranitidine HCl 150 mg capsule 150 mg PO BID 06/09/19 08/16/19 History clopidogrel 75 mg PO QAM #30 tab 08/08/19 08/16/19 Rx metoprolol tartrate 50 mg PO BID #60 tab 08/08/19 08/16/19 Rx Allergies Allergy/AdvReac Type Severity Reaction Status Date / Time No Known Drug Allergies Allergy Verified 08/16/19 12:13 Past Med/Surg History Medical History CAD (coronary artery disease) CHF (congestive heart failure), NYHA class III (Acute 10/05/14) Elevated troponin (Acute) Generalized weakness (Acute) Myocardial infarction Surgical History Hx of heart artery stent Family History Other Family history non-contributory Social History Communication Ability: Effective Beliefs That Will Affect Care: None Current Living Situation: Family Feels Safe at Home: Yes Smoking Status: Never smoker Hx Substance Use: No Review of Systems See HPI for pertinent positives & negatives. and A total of 10 systems reviewed and were otherwise negative Physical Exam Vital Signs Vital Signs - 24 hr 08/16/19 11:46 08/16/19 12:00 08/16/19 12:09 Temperature 36.4 C L Temperature Source Oral Pulse Rate 94 H 84 93 H Pulse Rate from SpO2 Sensor 75 69 Respiratory Rate 18 19 21 Respiratory Depth Normal Blood Pressure 152/86 H 151/87 H Blood Pressure Mean 108 109 Pulse Oximetry 97 96 96 Oxygen Delivery Method Room Air Sepsis Recent Fever Within 48 Hours No Sepsis Action Taken by Nursing No Action Required 08/16/19 12:30 08/16/19 12:31 08/16/19 12:33 Temperature Temperature Source Pulse Rate 83 90 Pulse Rate from SpO2 Sensor 69 66 Respiratory Rate 22 23 Respiratory Depth Blood Pressure 146/71 H Blood Pressure Mean 90 Pulse Oximetry 97 97 97 Oxygen Delivery Method Room Air Sepsis Recent Fever Within 48 Hours Sepsis Action Taken by Nursing 08/16/19 13:00 08/16/19 13:01 08/16/19 13:30 Temperature Temperature Source Pulse Rate 83 84 82 Pulse Rate from SpO2 Sensor 64 74 78 Respiratory Rate 25 H 27 H 18 Respiratory Depth Blood Pressure 153/83 H 142/80 H Blood Pressure Mean 102 101 Pulse Oximetry 98 98 97 Oxygen Delivery Method Sepsis Recent Fever Within 48 Hours Sepsis Action Taken by Nursing 08/16/19 13:31 08/16/19 14:00 08/16/19 14:01 Temperature Temperature Source Pulse Rate 84 83 87 Pulse Rate from SpO2 Sensor 75 81 79 Respiratory Rate 15 18 23 Respiratory Depth Blood Pressure 145/84 H Blood Pressure Mean 112 Pulse Oximetry 97 97 98 Oxygen Delivery Method Sepsis Recent Fever Within 48 Hours Sepsis Action Taken by Nursing CONSTITUTIONAL/VITAL SIGNS: Reviewed / noted above. GENERAL: Non-toxic in appearance. INTEGUMENTARY: Warm, dry, and [place]. HEAD: Normocephalic. EYES: without scleral icterus or trauma. ENT/OROPHARYNX: clear and moist. LYMPHADENOPATHY/NECK: Is supple without lymphadenopathy or meningismus. RESPIRATORY: Lungs clear and equal. CARDIOVASCULAR: Regular rate and rhythm. GI/ABDOMEN: Soft and nontender. No organomegaly or pulsatile mass. No rebound or guarding. Normal bowel sounds. EXTREMITIES: Warm and well perfused. BACK: No CVA tenderness. NEUROLOGICAL: Intact without focal deficits. PSYCHIATRIC: normal affect. MUSCULOSKELETAL: Normally developed with good muscle tone. Course Course 1253: Past medical records reviewed. The patient was evaluated in room C02B, and a complete history and physical examination were performed. 1355: I reevaluated the patient and updated him on test results as well as the treatment plan. 1401: I spoke to Dr. Luna Sargent [facility] Hospitalist about the patient's case. He a greed to accept the patient for further evaluation. Consultations Consultation #1: I spoke to Dr. Luna Sargent [facility] Hospitalist about the patient's case. He agreed to accept the patient for further evaluation. Time: 14:01 Medical Decision Making Differential Diagnosis Differential diagnoses includes but is not limited to gastritis, peptic ulcer disease, GERD, gallbladder disease, pancreatitis, small bowel obstruction, acute coronary syndrome, pericarditis, ischemic bowel, irritable bowel disease, irritable bowel syndrome, appendicitis, diverticulitis, malignancy, hernia, urinary tract infection, torsion, perforation, trauma, infectious. Medical Records Attestation: I reviewed the patient's medical records. Home Medications Current Medication List: was personally reviewed by me Laboratory Data Attestation: I reviewed the patient's lab results. Result diagrams: 08/16/19 12:45 08/16/19 12:45 Lab Results 08/16/19 08/16/19 08/16/19 Range/Units 12:30 12:45 12:45 WBC 16.44 H (4.8-10.8) K/uL RBC 5.46 (4.7-6.1) M/uL Hgb 17.6 (14.0-18.0) g/dL Hct 50.8 (42-52) % MCV 93.0 (80-100) fL MCH 32.2 (25-34) pg MCHC 34.6 (32-36) g/dL RDW Std Deviation 45.5 (36.4-46.3) fL RDW Coeff of Leo 13.4 (11.5-14.5) % Plt Count 203 (130-400) K/uL MPV 11.8 H (7.4-10.4) fL Immature Gran % (Auto) 0.2 % Neut % (Auto) 85.0 % Lymph % (Auto) 4.4 % Hill % (Auto) 10.2 % Eos % (Auto) 0.1 % Baso % (Auto) 0.1 % Immature Gran # (Auto) 0.03 H (0.00-0.02) K/uL Neut # (Auto) 13.99 H (1.4-6.5) K/uL Lymph # (Auto) 0.73 L (1.2-3.4) K/uL Hill # (Auto) 1.67 H (0.11-0.59) K/uL Eos # (Auto) 0.01 (0-0.5) K/uL Baso # (Auto) 0.01 (0-0.2) K/uL Sodium 133 L (136-145) mmol/L Potassium 3.9 (3.5-5.1) mmol/L Chloride 103 (98-107) mmol/L Carbon Dioxide 22 (21-32) mmol/L Anion Gap 8.0 (3-11) BUN 68 H (7-18) mg/dl Creatinine 3.85 H (0.6-1.4) mg/dl Est Cr Clr Drug Dosing 15.8 ml/min Est GFR ( Amer) 16.3 Est GFR (Non-Af Amer) 14.1 BUN/Creatinine Ratio 17.6 (10-20) Glucose 103 H (70-99) mg/dl Calcium 9.8 (8.5-10.1) mg/dl Total Bilirubin 1.4 H (0.2-1) mg/dl AST 173 H (15-37) U/L ALT 190 H (12-78) U/L Alkaline Phosphatase 266 H (45-117) U/L Total Protein 7.6 (6.4-8.2) gm/dl Albumin 2.7 L (3.4-5.0) gm/dl Globulin 4.9 H (2.5-4.0) gm/dl Albumin/Globulin Ratio 0.6 L (0.9-2) Lipase 158 (73-393) U/L Urine Color Dark Yellow Urine Appearance Clear (Clear) Urine pH 5.0 (4.5-7.5) Ur Specific [place] 1.018 (1.000-1.030) Urine Protein Negative (Negative) Urine Glucose (UA) Negative (Negative) Urine Ketones Negative (Negative) Urine Blood 2+ H (Negative) Urine Nitrite Negative (Negative) Urine Bilirubin Negative (Negative) Urine Urobilinogen Negative (Negative) Ur Leukocyte Esterase Trace H (Negative) Urine WBC (Auto) 1-5 (0-5) /hpf Urine RBC (Auto) 0-4 (0-4) /hpf U Hyaline Cast (Auto) 0 (0-5) /lpf U Epithel Cells (Auto) 5-10 H (0-5) /lpf Urine Bacteria (Auto) Negative (Negative) Blood Pressure Blood Pressure Findings: Elevated blood pressure Blood Pressure Disposition: Referred to patients primary care provider MDM Narrative This is a 79-year-old male who presents to the ED with a chief complaint of abdominal pain. The patient also had nausea and vomiting. He presents alone. No family presented with him. The patient's exam revealed abdominal distention and lower abdomen as well as tenderness. A Blue catheter was placed and 1700 cc of urine was removed from the patient's bladder. On reexam after the 1700 cc was removed, the abdomen was soft and no longer distended. He does not appear to have any additional tenderness on exam. The patient's exam was otherwise unremarkable. His blood pressure was slightly hypertensive. His white blood cell count was 16. BUN is 68 and creatinine is 3.85. This is up from 1.4 about 9 days ago. Other abnormalities in labs include the AST, ALT and alkaline phosphatase as well as bilirubin. These were not previously elevated. He does not have any focal tenderness in the right upper quadrant on my exam. The urine did not show evidence of infection. He was recently treated with antibiotics for UTI. The patient was told the results of the test. Because of his acute renal failure likely post renal azotemia, he will be seen by the hospitalist for further evaluation and care. I did speak with the hospitalist about the elevated liver function test. We will pursue an imaging study for this as well as an inpatient. Impression & Plan Acute renal failure, Transaminitis, Obstructed, uropathy, Vomiting Discharge Plan Visit Data Chief Complaint: Abdominal Pain Stated Complaint: abd pain ED Provider: Guanaco Perez Discharge Problem: Acute renal failure, Transaminitis, Obstructed, uropathy, Vomiting Patient Disposition: Being Evaluated by Hospitalist Forms Stand Alone Forms: Call Back Authorization, My [facility] Prescriptions Prescriptions: No Action isosorbide mononitrate 120 mg tablet extended release 24 hr 240 mg PO DAILY Qty: 180 RF: 3 amlodipine 10 mg tablet 10 mg PO DAILY RF: 0 aspirin 81 mg tablet,delayed release (DR/EC) 81 mg PO DAILY RF: 0 docusate sodium 100 mg capsule 100 mg PO DAILY RF: 0 furosemide 20 mg tablet 20 mg PO DAILY RF: 0 glimepiride 2 mg tablet 2 mg PO QAM RF: 0 nitroglycerin [Nitrostat] 0.4 mg tablet, sublingual See Rx Instructions SL Q5M PRN (Reason: Chest Pain) RF: 0 ranitidine HCl 150 mg capsule 150 mg PO BID RF: 0 atorvastatin 80 mg tablet 80 mg PO DAILY Qty: 90 RF: 3 clopidogrel 75 mg Tablet 75 mg PO QAM Qty: 30 RF: 0 metoprolol tartrate 50 mg Tablet 50 mg PO BID Qty: 60 RF: 0 Referrals Referrals: Mp Sanchez III, MD [Primary Care Provider] - Discharge Problem: Acute renal failure Qualifiers: Acute renal failure type: unspecified Qualified Code(s): N17.9 - Acute kidney failure, unspecified The scribe's documentation has been prepared under my direction and personally reviewed by me in its entirety. I confirm that the note above accurately reflects all work, treatment, procedures, and medical decision making performed by me.
--- NOTE | 2019-08-16 15:06 | History & Physical Report ---
Date of Service August 16, 2019 Assessment & Plan (1) Acute renal failure: Admit tele Suspect post-renal due to urinary retention DVT prophylaxis = SCDs and sub-q heparin. (2) Obstructed, uropathy: Blue placed 1700ml urine out. Urology consult (3) CAD (coronary artery disease): Had STEMI earlier this same month. No chest pain Continue Plavix, aspirin, Isosorbide, metoprolol (4) CKD (chronic kidney disease), stage III: Baseline creat appears to be 1.4 (5) Hyperlipidemia: Continue Atorvastatin he has been on 80mg since even prior to [place]. (6) Transaminitis: No obvious source to explain at this time. I will check CT scan abd to further evaluate. Does not appear to be fluid overloaded. Only new medication in past month would be Plavix which has in extremely rare cases has caused hepatitis. I will follow LFTs and order gallbladder U/S and CT abdomen I did not yet hold Plavix as the benefit of its use post cath with PCI outweighs the probability of Plavix being the culprit of the hepatitis. History of Present Illness 79 y/o male with generalized abdominal pain over a 2 day period. He has had nausea and vomiting prior to arrival to ED. He has been having hematuria as per family. When Blue cath was placed, the patient drained 1700ml of blood tinged urine. He now reports feeling better with no abdominal pain. Patient is a poor historian. He declines having F/C, cough, chest pain, SOB, diarrhea, or headache. Primary Care Provider: Mp Sanchez MD Allergies Allergy/AdvReac Type Severity Reaction Status Date / Time No Known Drug Allergies Allergy Verified 08/16/19 12:13 Home Medications Home Medications Medication Instructions Recorded Confirmed Type isosorbide mononitrate 120 mg 240 mg PO DAILY #180 tab 04/01/19 08/16/19 Rx tablet,extended release 24 hr amlodipine 10 mg tablet 10 mg PO DAILY 06/09/19 08/16/19 History aspirin 81 mg tablet,delayed 81 mg PO DAILY 06/09/19 08/16/19 History release atorvastatin 80 mg tablet 80 mg PO DAILY #90 tab 06/09/19 08/16/19 Rx docusate sodium 100 mg capsule 100 mg PO DAILY 06/09/19 08/16/19 History furosemide 20 mg tablet 20 mg PO DAILY tab 06/09/19 08/16/19 History glimepiride 2 mg tablet 2 mg PO QAM 06/09/19 08/16/19 History nitroglycerin 0.4 mg sublingual See Rx Instructions SL Q5M PRN 06/09/19 08/16/19 History tablet ranitidine HCl 150 mg capsule 150 mg PO BID 06/09/19 08/16/19 History clopidogrel 75 mg PO QAM #30 tab 08/08/19 08/16/19 Rx metoprolol tartrate 50 mg PO BID #60 tab 08/08/19 08/16/19 Rx Past Med/Surg History Medical History CAD (coronary artery disease) CHF (congestive heart failure), NYHA class III (Acute 10/05/14) Elevated troponin (Acute) Generalized weakness (Acute) Myocardial infarction Surgical History Hx of heart artery stent Family History Other Family history non-contributory Social History Preferred Language: Qat[place] Communication Ability: Effective Mixer Pigment Required: No Beliefs That Will Affect Care: None Current Living Situation: Family Current Living Situation Comment: lives with son and Other Information That Helps Us Care for You: No Feels Safe at Home: Yes Safety Concerns: Feels Safe At This Time Smoking Status: Never smoker Hx Alcohol Use: No Hx Substance Use: No Review of Systems Review of Systems: All systems reviewed & are unremarkable except as noted in HPI & below Physical Exam Physical Exam: General- adult male, NAD. Head- atraumatic Eyes- PERRL, EOMI, anicteric ENT- oropharynx clear Neck- supple, no JVD, no adenopathy, no thyromegaly. Lungs-CTA b/l no R/R/W Heart- irregular rhythm (sinus arrhythmia with PVCs on monitor) no murmur, no gallop, no rub appreciated Abdomen- normal bowel sounds, soft, nontender. Blue draining blood tinged urine. Extremities- no pretibial edema, no calf tenderness; peripheral pulses intact Neuro- alert, oriented to person only; PERRL, EOMI; line supervisor II-XII grossly intact, non-focal. Skin- warm & dry Results & Data Vital Signs (Past 12 Hours) Vital Signs Temp Pulse Resp BP Pulse Ox 08/16/19 14:31 85 22 97 08/16/19 14:30 83 17 146/76 H 97 08/16/19 14:01 87 23 98 08/16/19 14:00 83 18 145/84 H 97 08/16/19 13:31 84 15 97 08/16/19 13:30 82 18 142/80 H 97 08/16/19 13:01 84 27 H 98 08/16/19 13:00 83 25 H 153/83 H 98 08/16/19 12:33 97 08/16/19 12:31 90 23 97 08/16/19 12:30 83 22 146/71 H 97 08/16/19 12:09 93 H 21 96 08/16/19 12:00 84 19 151/87 H 96 08/16/19 11:46 36.4 C L 94 H 18 152/86 H 97 Laboratory Results Laboratory Results WBC 16.44 K/uL (4.8-10.8) H 08/16/19 12:45 RBC 5.46 M/uL (4.7-6.1) 08/16/19 12:45 Hgb 17.6 g/dL (14.0-18.0) 08/16/19 12:45 Hct 50.8 % (42-52) 08/16/19 12:45 MCV 93.0 fL (80-100) 08/16/19 12:45 MCH 32.2 pg (25-34) 08/16/19 12:45 MCHC 34.6 g/dL (32-36) 08/16/19 12:45 RDW Std Deviation 45.5 fL (36.4-46.3) 08/16/19 12:45 RDW Coeff of Leo 13.4 % (11.5-14.5) 08/16/19 12:45 Plt Count 203 K/uL (130-400) 08/16/19 12:45 MPV 11.8 fL (7.4-10.4) H 08/16/19 12:45 Immature Gran % (Auto) 0.2 % 08/16/19 12:45 Neut % (Auto) 85.0 % 08/16/19 12:45 Lymph % (Auto) 4.4 % 08/16/19 12:45 Quay % (Auto) 10.2 % 08/16/19 12:45 Eos % (Auto) 0.1 % 08/16/19 12:45 Baso % (Auto) 0.1 % 08/16/19 12:45 Immature Gran # (Auto) 0.03 K/uL (0.00-0.02) H 08/16/19 12:45 Neut # (Auto) 13.99 K/uL (1.4-6.5) H 08/16/19 12:45 Lymph # (Auto) 0.73 K/uL (1.2-3.4) L 08/16/19 12:45 Quay # (Auto) 1.67 K/uL (0.11-0.59) H 08/16/19 12:45 Eos # (Auto) 0.01 K/uL (0-0.5) 08/16/19 12:45 Baso # (Auto) 0.01 K/uL (0-0.2) 08/16/19 12:45 Sodium 133 mmol/L (136-145) L 08/16/19 12:45 Potassium 3.9 mmol/L (3.5-5.1) 08/16/19 12:45 Chloride 103 mmol/L (98-107) 08/16/19 12:45 Carbon Dioxide 22 mmol/L (21-32) 08/16/19 12:45 Anion Gap 8.0 (3-11) 08/16/19 12:45 BUN 68 mg/dl (7-18) H 08/16/19 12:45 Creatinine 3.85 mg/dl (0.6-1.4) H 08/16/19 12:45 Est Cr Clr Drug Dosing 15.8 ml/min 08/16/19 12:45 Est GFR ( Amer) 16.3 08/16/19 12:45 Est GFR (Non-Af Amer) 14.1 08/16/19 12:45 BUN/Creatinine Ratio 17.6 (10-20) 08/16/19 12:45 Glucose 103 mg/dl (70-99) H 08/16/19 12:45 Calcium 9.8 mg/dl (8.5-10.1) 08/16/19 12:45 Total Bilirubin 1.4 mg/dl (0.2-1) H 08/16/19 12:45 AST 173 U/L (15-37) H 08/16/19 12:45 ALT 190 U/L (12-78) H 08/16/19 12:45 Alkaline Phosphatase 266 U/L (45-117) H 08/16/19 12:45 Total Protein 7.6 gm/dl (6.4-8.2) 08/16/19 12:45 Albumin 2.7 gm/dl (3.4-5.0) L 08/16/19 12:45 Globulin 4.9 gm/dl (2.5-4.0) H 08/16/19 12:45 Albumin/Globulin Ratio 0.6 (0.9-2) L 08/16/19 12:45 Lipase 158 U/L (73-393) 08/16/19 12:45 Urine Color Dark Yellow 08/16/19 12:30 Urine Appearance Clear (Clear) 08/16/19 12:30 Urine pH 5.0 (4.5-7.5) 08/16/19 12:30 Ur Specific [place] 1.018 (1.000-1.030) 08/16/19 12:30 Urine Protein Negative (Negative) 08/16/19 12:30 Urine Glucose (UA) Negative (Negative) 08/16/19 12:30 Urine Ketones Negative (Negative) 08/16/19 12:30 Urine Blood 2+ (Negative) H 08/16/19 12:30 Urine Nitrite Negative (Negative) 08/16/19 12:30 Urine Bilirubin Negative (Negative) 08/16/19 12:30 Urine Urobilinogen Negative (Negative) 08/16/19 12:30 Ur Leukocyte Esterase Trace (Negative) H 08/16/19 12:30 Urine WBC (Auto) 1-5 /hpf (0-5) 08/16/19 12:30 Urine RBC (Auto) 0-4 /hpf (0-4) 08/16/19 12:30 U Hyaline Cast (Auto) 0 /lpf (0-5) 08/16/19 12:30 U Epithel Cells (Auto) 5-10 /lpf (0-5) H 08/16/19 12:30 Urine Bacteria (Auto) Negative (Negative) 08/16/19 12:30 Code Status & VTE Plan VTE Prophylaxis Plan VTE Prophylaxis will be ordered: Yes PG Care Time/CCT Total # of Minutes Spent Total Time Spent: 55 Total Time Spent with Patient: Total time spent is greater than 50% in coordination of care (as documented) at patient's floor/unit and/or counseling patient: (1) Acute renal failure Acute renal failure type: unspecified Qualified Code(s): N17.9 - Acute kidney failure, unspecified
[2019-08-16] MEDS ORDERED: GLUCOSE 40% GEL 15 GM TUBE PO PRN (17:08)
[2019-08-16] MEDS ORDERED: ACETAMINOPHEN 325 MG TAB PO PRN (17:08)
[2019-08-16] MEDS ORDERED: DEXTROSE 50% 50 ML SYRINGE IV PRN (17:08)
[2019-08-16] MEDS ORDERED: GLUCOSE 10 TABS/TUBE PO PRN (17:08)
[2019-08-16] MEDS ORDERED: GLUCAGON FOR INJ 1 MG VIAL SQ PRN (17:08)
[2019-08-16] MEDS ORDERED: CARBOHYDRATES FOR HYPOGLYCEMIA PO PRN (17:08)
[2019-08-16] MEDS ORDERED: ONDANSETRON INJ 2 MG/ML 2 ML VIAL IV PRN (17:08)
--- NOTE | 2019-08-16 18:08 | Ultrasound Report ---
ABDOMINAL ULTRASOUND, RIGHT UPPER QUADRANT HISTORY: Elevated LFT's. COMPARISON: None. FINDINGS: Pancreas: Obscured by overlying bowel gas. Liver: Questionable subtle nodular contour to the liver. This could represent an early cirrhosis. Gallbladder: The gallbladder is surgically absent. CBD: 5 mm. Right kidney: No hydronephrosis. A 1.7 cm upper pole cyst. IMPRESSION: 1. Questionable subtle nodular contour to the liver. This could represent an early cirrhosis. 2. Prior cholecystectomy. 3. The pancreas was obscured by overlying bowel gas. ACT 112: Negative or not required by law. Electronically signed by: Loco Edge M.D. 08/16/2019 6:07 PM
--- NOTE | 2019-08-16 18:17 | CT Scan Report ---
CT OF THE ABDOMEN WITHOUT CONTRAST CLINICAL HISTORY: Abdominal pain. COMPARISON STUDY: Renal ultrasound August 21, 2012. TECHNIQUE: Axial images of the abdomen were obtained without IV contrast. Automated exposure control was utilized for the study. A dose lowering technique was utilized adhering to the principles of ALA RA. FINDINGS: Imaged portions of the lower chest demonstrate mild cardiomegaly. There is mild left basila r opacity. No pneumatosis, free air or portal venous gas is identified within the abdomen. There is n o biliary ductal dilatation status post cholecystectomy. Greater glandular atrophy is noted. Evaluati on of the abdomen is suboptimal on this unenhanced exam. There is trace ascites. There are calcified granulomas within the spleen. Note is made of a water attenuation 2.6 cm right hepatic lobe lesion wi th minimal peripheral calcification. This is suboptimally assessed on this unenhanced examination. Mo derate gaseous distention of visualized portions of the ascending colon is noted with mild gaseous di stention of the transverse colon and descending colon, partially imaged on this examination. There is no abdominal lymphadenopathy. There is no hydronephrosis. No suspicious osseous lesions are noted. A few calcified granulomas within the liver are noted. IMPRESSION: 1. Nonspecific moderate gaseous distention of the ascending colon with mild gaseous distention of the transverse colon and descending colon. Colon partially imaged on this examination. If persistent sym ptoms, radiographic follow-up is recommended. 2. Mild left basilar opacity which favors a small focus of pneumonia. 3. Trace ascites. 4. 2.6 cm water attenuation right hepatic lobe lesion with minimal peripheral calcification. This is suboptimally assessed on this unenhanced exam but is probably benign. Electronically signed by: Rc Aden M.D. 08/16/2019 6:16 PM
[2019-08-16] MEDS: INSULIN ASPART 100 UNITS/ML 3 ML PEN SC SCH ×2 (18:35→21:16)
[2019-08-16] MEDS: SODIUM CHLORIDE 0.9% 1000ML 1,000 ML IV SCH (19:26)
[2019-08-16] MEDS: METOPROLOL TARTRATE 50 MG TAB PO SCH (21:04)
[2019-08-16] MEDS: HEPARIN SOD 5,000 UNIT/0.5 ML VIAL SQ SCH (21:04)
[2019-08-17] MEDS: SODIUM CHLORIDE 0.9% 1000ML 1,000 ML IV SCH (04:14)
[2019-08-17 07:18] LABS: Hematocrit (blood only) 47.3 % (42-52); Hemoglobin 16.1 g/dL (14.0-18.0); Mean Corpuscular Hemoglobin 31.4 pg (25-34); Mean Corpuscular Volume 92.4 fL (80-100); Mean Platelet Volume 12.4 fL (7.4-10.4); Platelet Count 170 K/uL (130-400); RDW Coefficient of Variation 13.3 % (11.5-14.5); Red Blood Count 5.12 M/uL (4.7-6.1); White Blood Count 12.01 K/uL (4.8-10.8)
[2019-08-17 07:57] LABS: Albumin Globulin Ratio 0.5 (0.9-2); Albumin Level 2.2 gm/dl (3.4-5.0); BUN Creatinine Ratio 24.4 (10-20); Bilirubin Direct 0.4 mg/dl (0-0.2); Bilirubin,Total 1.1 mg/dl (0.2-1); Calcium 8.9 mg/dl (8.5-10.1); Creatinine Clr Calc Pharmacy 30.7 ml/min; Est GFR (African American) 36.4; Est GFR (Non-African American) 31.4; Globulin 4.3 gm/dl (2.5-4.0); Potassium 3.5 mmol/L (3.5-5.1); Total Protein 6.5 gm/dl (6.4-8.2)
[2019-08-17] MEDS: AMLODIPINE BESYLATE 5 MG TAB PO SCH (08:34)
[2019-08-17] MEDS: CLOPIDOGREL BISULFATE 75 MG TAB PO SCH (08:34)
[2019-08-17] MEDS ORDERED: DEXTROSE 50% 50 ML SYRINGE IV ONE (08:34)
[2019-08-17] MEDS: METOPROLOL TARTRATE 50 MG TAB PO SCH (08:34)
[2019-08-17] MEDS: FAMOTIDINE 20 MG TAB PO SCH (08:34)
[2019-08-17] MEDS: DOCUSATE SODIUM 100 MG CAP PO SCH (08:35)
[2019-08-17] MEDS: ASPIRIN 81 MG ECTAB PO SCH (08:35)
[2019-08-17] MEDS: ISOSORBIDE MONO EXTENDED REL 60 MG TABCR PO SCH (08:35)
[2019-08-17] MEDS: HEPARIN SOD 5,000 UNIT/0.5 ML VIAL SQ SCH ×2 (08:36→20:20)
[2019-08-17] MEDS: INSULIN ASPART 100 UNITS/ML 3 ML PEN SC SCH (08:42)
[2019-08-17] MEDS ORDERED: ATORVASTATIN 40 MG TAB PO SCH (09:00)
[2019-08-17] MEDS ORDERED: GLIMEPIRIDE 2 MG TAB PO SCH (09:00)
--- NOTE | 2019-08-17 09:28 | Urology Consultation ---
Date of Consultation August 17, 2019 Assessment & Plan (1) Acute renal failure: (2) Obstructed, uropathy: (3) UTI (urinary tract infection): 79yo M admitted with FADI, UR, transaminitis, hypoglycemia, possible pneumonia, recent NSTEMI, Proteus UTI Currently on augmentin for possible pneumonia. Will defer sending UC&S at this point, UA not overly suspicious for persistent UTI. Will hold on adding alpha blockers given recent STEMI. Given his other comorbidities and other more pressing health concerns, we will allow for patient to maintain resendez catheter to allow max medical rest for at least two weeks. Encouraged by lack of hydronephrosis on CT and improved Cr with bladder rest. Will continue to monitor peripherally while inpatient. Thank you for the consultation. History of Present Illness Reason for Consultation: DURÁN, UR, FADI Requesting Physician: Dr. Nation Attending Physician: Houston Nation History of Present Illness 79yo comorbid male admitted through [facility] ER after two days of constant abdominal pain, n/v. Resendez catheter inserted without difficulty in the ER, drained 1,600cc urine, mild hematuria as expected. Abdominal pain has since resolved since insertion of resendez. Creatinine elevated to 3.85 upon admission, improved to 1.98 today with max drainage. CT abdomen does not reveal any obstructing stones, no hydronephrosis. UA with trace leuks, some epi's, 0-4 RBCs. Not overly suspicious He is also being evaluated for transaminitis and hypoglycemia during this admission. Pt is disoriented, unable to answer questions. No previous evaluation by our service noted. Currently not on any BPH medications. All information obtained from nursing and notes, pt is a very poor historian with AMS and hard of hearing. No family members at bedside. He does not appear to be in discomfort from resendez catheter at this time. Resendez draining concentrated yellow urine. Of note, he was recently hospitalized at [facility] from 08/03 - 08/08 with STEMI, found to have >100,000cfu pansensitive proteus UTI at that time. Treated with Rocephin IV then Cephalexin outpatient. Allergies Allergy/AdvReac Type Severity Reaction Status Date / Time No Known Drug Allergies Allergy Verified 08/16/19 12:13 Home Medications Home Medications Medication Instructions Recorded Confirmed Type isosorbide mononitrate 120 mg 240 mg PO DAILY #180 tab 04/01/19 08/16/19 Rx tablet,extended release 24 hr amlodipine 10 mg tablet 10 mg PO DAILY 06/09/19 08/16/19 History aspirin 81 mg tablet,delayed 81 mg PO DAILY 06/09/19 08/16/19 History release atorvastatin 80 mg tablet 80 mg PO DAILY #90 tab 06/09/19 08/16/19 Rx docusate sodium 100 mg capsule 100 mg PO DAILY 06/09/19 08/16/19 History furosemide 20 mg tablet 20 mg PO DAILY tab 06/09/19 08/16/19 History glimepiride 2 mg tablet 2 mg PO QAM 06/09/19 08/16/19 History nitroglycerin 0.4 mg sublingual See Rx Instructions SL Q5M PRN 06/09/19 08/16/19 History tablet ranitidine HCl 150 mg capsule 150 mg PO BID 06/09/19 08/16/19 History clopidogrel 75 mg PO QAM #30 tab 08/08/19 08/16/19 Rx metoprolol tartrate 50 mg PO BID #60 tab 08/08/19 08/16/19 Rx Patient History Medical History CAD (coronary artery disease) CHF (congestive heart failure), NYHA class III (Acute 10/05/14) Elevated troponin (Acute) Generalized weakness (Acute) Myocardial infarction Surgical History Hx of heart artery stent Family History Other Family history non-contributory Social History Preferred Language: [place] Communication Ability: Effective Anchor Operator Required: No Beliefs That Will Affect Care: None Current Living Situation: Family Current Living Situation Comment: lives with son and Feels Safe at Home: Yes Smoking Status: Never smoker Hx Alcohol Use: No Hx Substance Use: No Review of Systems Review of Systems: Unobtainable due to cognitive status Physical Exam Physical Exam: Disoriented, no acute distress Wet cough resendez draining concentrated yellow Results & Data Vital Signs (Past 12 Hours) Vital Signs Temp Pulse Pulse Resp BP BP Pulse Ox 08/17/19 07:21 36.6 C 51 L 17 124/61 96 08/17/19 07:18 62 08/17/19 03:53 36.3 C L 50 L 18 113/68 97 08/16/19 23:46 36.9 C 52 L 18 132/68 95 08/16/19 23:38 59 L 08/16/19 22:02 84 08/16/19 21:52 36.5 C 62 19 148/76 H 95 PG Care Time/CCT Total # of Minutes Spent Total Time Spent with Patient: Total time spent is greater than 50% in coordination of care (as documented) at patient's floor/unit and/or counseling patient: (1) Acute renal failure Acute renal failure type: unspecified Qualified Code(s): N17.9 - Acute kidney failure, unspecified
[2019-08-17] MEDS ORDERED: AMOXICILLIN/CLAVULANATE 875 MG TAB PO SCH ×2 (10:30→17:00)
[2019-08-17] MEDS ORDERED: PIPERACILL/TAZOBAC CONSULT ACTIVE PRN (11:35)
[2019-08-17] MEDS ORDERED: PIPERACILLIN/TAZOBACTAM 3.375 GM in DEXTROSE 5% 100 ML IV ONE (12:00)
--- NOTE | 2019-08-17 12:05 | Hospitalist Progress Note ---
Date of Service August 17, 2019 Assessment & Plan (1) Acute renal failure: - Likely related to urinary obstruction -- Cr improving following placement of resendez in ER. - Trend renal function daily -- level improved from 3.85 to 1.98. Repeat labs this evening. - Holding nephrotoxic agents, including home Lasix. - D/c IV fluids to avoid volume overload in setting of CHF/crackles noted on exam. (2) Obstructed, uropathy: - 1700 cc urine output following resendez placement. - Urology consulted, will need to maintain resendez for ~2 weeks. - Avoid alpha blockers due to recent STEMI. (3) Metabolic encephalopathy: - Developed acute confusion during this hospital admission, is not alert to person or place. - May be related to hospital delirium -- developed similar symptoms during last admission per note. - U/a was negative for UTI. - CT A/P showed mild left basilar opacity, likely pneumonia -- start Zosyn IV for coverage of aspiration PNA. 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 - Required psych consult during last admission for agitation/delirium -- will start scheduled Zyprexa (responded well during last admission) (4) Trouble swallowing: - CT head negative for acute CVA. - Speech therapy consult evaluation; will be NPO until evaluation. (5) CAD (coronary artery disease): - Admitted 08/03/19 for STEMI; had occluded diagonal noted on cardiac cath, cardio recommended medical management. - Continue ASA 81 mg indefinitely, Plavix 75 mg daily x 1 year, Amlodipine, Imdur as prescribed. - Will decrease Metoprolol to 25 mg BID due to bradycardia (HR 40's this morning) - Hold statin due to elevated LFTs. - F/u EKG showed T wave inversion in anterolateral leads, resolution of ST segment elevation; will order Trop at 5 pm. (6) Chronic diastolic heart failure: - Echo on 08/03 showed mildly reduced EF 40-45%, mid aortic regurg and akinetic to dyskinetic apex. - Monitor net I/Os and daily weights -- d/c'ed IV fluids due to crackles noted on exam. - Continue Metoprolol (at decreased dose); holding home Lasix due to ARF. - CXR on admission neg for overt pulm edema. (7) ST elevation myocardial infarction (STEMI): - As noted above, occurred earlier this month. - Continue all cardiac meds as prescribed. (8) Hyperlipidemia: - Hold statin due to elevated LFTs. (9) Bradycardia: - HR has been 40-50's on monitor. - Will decrease home Metoprolol to 25 mg BID and monitor closely on telemetry. (10) Transaminitis: - CT A/P showed right hepatic lobe lesion, 2.6 cm -- likely benign but will need follow up imaging in future. - RUQ US showed subtle nodularity, likely early cirrhosis but was otherwise negative. - LFTs remain elevated but are trending down. - Hold home statin. (11) CKD (chronic kidney disease), stage III: - Baseline Cr 1.4; currently elevated, see above. (12) Type II diabetes mellitus: - Hgb A1C was 5.8 on 08/03/19. - Holding home Glimepiride; will also d/c SSI as pt. was hypoglycemic this morning. - Continue to monitor accuchecks ac/hs. (13) GERD (gastroesophageal reflux disease): - Famotidine 20 mg daily. DVT ppx: Heparin q12hr. Dispo: Med/surg with tele for PT/OT evaluation, treatment of acute renal failure and confusion. Supervising Physician Co-Signing Physician Notes Attending Attestation: Chart reviewed in detail, care plan d/w BORIS Quinonez. I agree w/ the connor components of her documentation except - chronic diastolic CHF under problem list should be chronic systolic/diastolic CHF. Very complicated 79 yo male with recent hospitalization for STEMI. Complicated by severe encephalopathy requiring use of zyprexa. Re-admitted due to urinary retention, acute kidney injury (likely obstructive in nature), and severe delirium. FADI is improving. Resendez remains. Previously treated for UTI during prior stay; u/a looks much better this admission. Cont supportive care for other medical issues. Consider titration of zyprexa to target his agitation/delirium. Consider MRI brain to r/o new strokes in setting of recent STEMI. Reasonable to continue antibiotics for ? LLL pneumonia. Houston Nation MD Subjective Pt. is confused this morning, not alert to time or place. He is lethargic, will only open his eyes to verbal stimuli for short period of time. Unclear what his baseline is -- will need to discuss with family members. Creatinine is improving following resendez placement. Urology following, appreciate input. He had trouble swallowing food this morning, also concern for aspiration of his pills -- will make NPO and consult speech therapy for evaluation. Will start Zosyn for aspiration coverage in setting of confusion, left opacity on CT chest. PT/OT consults pending. Review of Systems Review of Systems: Unobtainable due to cognitive status Neurologic: + confusion Physical Exam Physical Exam: General: Resting comfortably HEENT: NC/AT; PERRLA with EOMI; Sharpes conjunctiva, MMM. No erythema of posterior pharynx Neck: Supple and nontender Cardiac: RRR Lungs: CTA bilaterally Abdomen: Bowel normoactive X 4; Nontender to palpation Extremities: Warm. No edema present Neuro: Not alert to person or place, cannot complete full neuro exam. Skin: No rash Results & Data Vital Signs (Past 12 Hours) Vital Signs Temp Pulse Pulse Resp BP BP Pulse Ox 08/17/19 11:21 36.4 C L 71 18 149/74 H 95 08/17/19 07:21 36.6 C 51 L 17 124/61 96 08/17/19 07:18 62 08/17/19 03:53 36.3 C L 50 L 18 113/68 97 08/16/19 23:46 36.9 C 52 L 18 132/68 95 Laboratory Results 08/17/19 08/17/19 08/17/19 Range/Units 08:01 08:00 07:59 WBC (4.8-10.8) K/uL RBC (4.7-6.1) M/uL Hgb (14.0-18.0) g/dL Hct (42-52) % MCV (80-100) fL MCH (25-34) pg MCHC (32-36) g/dL RDW Std Deviation (36.4-46.3) fL RDW Coeff of Leo (11.5-14.5) % Plt Count (130-400) K/uL MPV (7.4-10.4) fL Immature Gran % (Auto) % Neut % (Auto) % Lymph % (Auto) % Ponce % (Auto) % Eos % (Auto) % Baso % (Auto) % Immature Gran # (Auto) (0.00-0.02) K/uL Neut # (Auto) (1.4-6.5) K/uL Lymph # (Auto) (1.2-3.4) K/uL Ponce # (Auto) (0.11-0.59) K/uL Eos # (Auto) (0-0.5) K/uL Baso # (Auto) (0-0.2) K/uL Sodium (136-145) mmol/L Potassium (3.5-5.1) mmol/L Chloride (98-107) mmol/L Carbon Dioxide (21-32) mmol/L Anion Gap (3-11) BUN (7-18) mg/dl Creatinine (0.6-1.4) mg/dl Est Cr Clr Drug Dosing ml/min Est GFR ( Amer) Est GFR (Non-Af Amer) BUN/Creatinine Ratio (10-20) Glucose (70-99) mg/dl POC Glucose 71 59 L* 70 (70-99) Calcium (8.5-10.1) mg/dl Total Bilirubin (0.2-1) mg/dl Direct Bilirubin (0-0.2) mg/dl AST (15-37) U/L ALT (12-78) U/L Alkaline Phosphatase (45-117) U/L Total Creatine Kinase (39-308) U/L Total Protein (6.4-8.2) gm/dl Albumin (3.4-5.0) gm/dl Globulin (2.5-4.0) gm/dl Albumin/Globulin Ratio (0.9-2) Lipase (73-393) U/L Urine Color Urine Appearance (Clear) Urine pH (4.5-7.5) Ur Specific Hastings (1.000-1.030) Urine Protein (Negative) Urine Glucose (UA) (Negative) Urine Ketones (Negative) Urine Blood (Negative) Urine Nitrite (Negative) Urine Bilirubin (Negative) Urine Urobilinogen (Negative) Ur Leukocyte Esterase (Negative) Urine WBC (Auto) (0-5) /hpf Urine RBC (Auto) (0-4) /hpf U Hyaline Cast (Auto) (0-5) /lpf U Epithel Cells (Auto) (0-5) /lpf Urine Bacteria (Auto) (Negative) 12/18/19 12/18/19 12/18/19 Range/Units 07:58 07:43 07:42 WBC (4.8-10.8) K/uL RBC (4.7-6.1) M/uL Hgb (14.0-18.0) g/dL Hct (42-52) % MCV (80-100) fL MCH (25-34) pg MCHC (32-36) g/dL RDW Std Deviation (36.4-46.3) fL RDW Coeff of Leo (11.5-14.5) % Plt Count (130-400) K/uL MPV (7.4-10.4) fL Immature Gran % (Auto) % Neut % (Auto) % Lymph % (Auto) % Ponce % (Auto) % Eos % (Auto) % Baso % (Auto) % Immature Gran # (Auto) (0.00-0.02) K/uL Neut # (Auto) (1.4-6.5) K/uL Lymph # (Auto) (1.2-3.4) K/uL Ponce # (Auto) (0.11-0.59) K/uL Eos # (Auto) (0-0.5) K/uL Baso # (Auto) (0-0.2) K/uL Sodium (136-145) mmol/L Potassium (3.5-5.1) mmol/L Chloride (98-107) mmol/L Carbon Dioxide (21-32) mmol/L Anion Gap (3-11) BUN (7-18) mg/dl Creatinine (0.6-1.4) mg/dl Est Cr Clr Drug Dosing ml/min Est GFR ( Amer) Est GFR (Non-Af Amer) BUN/Creatinine Ratio (10-20) Glucose (70-99) mg/dl POC Glucose 60 L* 61 L* 67 L* (70-99) Calcium (8.5-10.1) mg/dl Total Bilirubin (0.2-1) mg/dl Direct Bilirubin (0-0.2) mg/dl AST (15-37) U/L ALT (12-78) U/L Alkaline Phosphatase (45-117) U/L Total Creatine Kinase (39-308) U/L Total Protein (6.4-8.2) gm/dl Albumin (3.4-5.0) gm/dl Globulin (2.5-4.0) gm/dl Albumin/Globulin Ratio (0.9-2) Lipase (73-393) U/L Urine Color Urine Appearance (Clear) Urine pH (4.5-7.5) Ur Specific Hastings (1.000-1.030) Urine Protein (Negative) Urine Glucose (UA) (Negative) Urine Ketones (Negative) Urine Blood (Negative) Urine Nitrite (Negative) Urine Bilirubin (Negative) Urine Urobilinogen (Negative) Ur Leukocyte Esterase (Negative) Urine WBC (Auto) (0-5) /hpf Urine RBC (Auto) (0-4) /hpf U Hyaline Cast (Auto) (0-5) /lpf U Epithel Cells (Auto) (0-5) /lpf Urine Bacteria (Auto) (Negative) 08/17/19 08/17/19 08/16/19 Range/Units 06:58 06:58 20:53 WBC 12.01 H (4.8-10.8) K/uL RBC 5.12 (4.7-6.1) M/uL Hgb 16.1 (14.0-18.0) g/dL Hct 47.3 (42-52) % MCV 92.4 (80-100) fL MCH 31.4 (25-34) pg MCHC 34.0 (32-36) g/dL RDW Std Deviation 45.0 (36.4-46.3) fL RDW Coeff of Leo 13.3 (11.5-14.5) % Plt Count 170 (130-400) K/uL MPV 12.4 H (7.4-10.4) fL Immature Gran % (Auto) % Neut % (Auto) % Lymph % (Auto) % Ponce % (Auto) % Eos % (Auto) % Baso % (Auto) % Immature Gran # (Auto) (0.00-0.02) K/uL Neut # (Auto) (1.4-6.5) K/uL Lymph # (Auto) (1.2-3.4) K/uL Ponce # (Auto) (0.11-0.59) K/uL Eos # (Auto) (0-0.5) K/uL Baso # (Auto) (0-0.2) K/uL Sodium 140 D (136-145) mmol/L Potassium 3.5 (3.5-5.1) mmol/L Chloride 108 H (98-107) mmol/L Carbon Dioxide 25 (21-32) mmol/L Anion Gap 7.0 (3-11) BUN 48 H (7-18) mg/dl Creatinine 1.98 H D (0.6-1.4) mg/dl Est Cr Clr Drug Dosing 30.7 ml/min Est GFR ( Amer) 36.4 Est GFR (Non-Af Amer) 31.4 BUN/Creatinine Ratio 24.4 H (10-20) Glucose 74 (70-99) mg/dl POC Glucose 103 H (70-99) Calcium 8.9 (8.5-10.1) mg/dl Total Bilirubin 1.1 H (0.2-1) mg/dl Direct Bilirubin 0.4 H (0-0.2) mg/dl AST 166 H (15-37) U/L ALT 188 H (12-78) U/L Alkaline Phosphatase 251 H (45-117) U/L Total Creatine Kinase (39-308) U/L Total Protein 6.5 (6.4-8.2) gm/dl Albumin 2.2 L (3.4-5.0) gm/dl Globulin 4.3 H (2.5-4.0) gm/dl Albumin/Globulin Ratio 0.5 L (0.9-2) Lipase (73-393) U/L Urine Color Urine Appearance (Clear) Urine pH (4.5-7.5) Ur Specific Hastings (1.000-1.030) Urine Protein (Negative) Urine Glucose (UA) (Negative) Urine Ketones (Negative) Urine Blood (Negative) Urine Nitrite (Negative) Urine Bilirubin (Negative) Urine Urobilinogen (Negative) Ur Leukocyte Esterase (Negative) Urine WBC (Auto) (0-5) /hpf Urine RBC (Auto) (0-4) /hpf U Hyaline Cast (Auto) (0-5) /lpf U Epithel Cells (Auto) (0-5) /lpf Urine Bacteria (Auto) (Negative) 08/16/19 08/16/19 08/16/19 Range/Units 19:16 12:45 12:45 WBC 16.44 H (4.8-10.8) K/uL RBC 5.46 (4.7-6.1) M/uL Hgb 17.6 (14.0-18.0) g/dL Hct 50.8 (42-52) % MCV 93.0 (80-100) fL MCH 32.2 (25-34) pg MCHC 34.6 (32-36) g/dL RDW Std Deviation 45.5 (36.4-46.3) fL RDW Coeff of Leo 13.4 (11.5-14.5) % Plt Count 203 (130-400) K/uL MPV 11.8 H (7.4-10.4) fL Immature Gran % (Auto) 0.2 % Neut % (Auto) 85.0 % Lymph % (Auto) 4.4 % Ponce % (Auto) 10.2 % Eos % (Auto) 0.1 % Baso % (Auto) 0.1 % Immature Gran # (Auto) 0.03 H (0.00-0.02) K/uL Neut # (Auto) 13.99 H (1.4-6.5) K/uL Lymph # (Auto) 0.73 L (1.2-3.4) K/uL Ponce # (Auto) 1.67 H (0.11-0.59) K/uL Eos # (Auto) 0.01 (0-0.5) K/uL Baso # (Auto) 0.01 (0-0.2) K/uL Sodium 133 L (136-145) mmol/L Potassium 3.9 (3.5-5.1) mmol/L Chloride 103 (98-107) mmol/L Carbon Dioxide 22 (21-32) mmol/L Anion Gap 8.0 (3-11) BUN 68 H (7-18) mg/dl Creatinine 3.85 H (0.6-1.4) mg/dl Est Cr Clr Drug Dosing 15.8 ml/min Est GFR ( Amer) 16.3 Est GFR (Non-Af Amer) 14.1 BUN/Creatinine Ratio 17.6 (10-20) Glucose 103 H (70-99) mg/dl POC Glucose 79 (70-99) Calcium 9.8 (8.5-10.1) mg/dl Total Bilirubin 1.4 H (0.2-1) mg/dl Direct Bilirubin (0-0.2) mg/dl AST 173 H (15-37) U/L ALT 190 H (12-78) U/L Alkaline Phosphatase 266 H (45-117) U/L Total Creatine Kinase 61 (39-308) U/L Total Protein 7.6 (6.4-8.2) gm/dl Albumin 2.7 L (3.4-5.0) gm/dl Globulin 4.9 H (2.5-4.0) gm/dl Albumin/Globulin Ratio 0.6 L (0.9-2) Lipase 158 (73-393) U/L Urine Color Urine Appearance (Clear) Urine pH (4.5-7.5) Ur Specific Hastings (1.000-1.030) Urine Protein (Negative) Urine Glucose (UA) (Negative) Urine Ketones (Negative) Urine Blood (Negative) Urine Nitrite (Negative) Urine Bilirubin (Negative) Urine Urobilinogen (Negative) Ur Leukocyte Esterase (Negative) Urine WBC (Auto) (0-5) /hpf Urine RBC (Auto) (0-4) /hpf U Hyaline Cast (Auto) (0-5) /lpf U Epithel Cells (Auto) (0-5) /lpf Urine Bacteria (Auto) (Negative) 08/16/19 Range/Units 12:30 WBC (4.8-10.8) K/uL RBC (4.7-6.1) M/uL Hgb (14.0-18.0) g/dL Hct (42-52) % MCV (80-100) fL MCH (25-34) pg MCHC (32-36) g/dL RDW Std Deviation (36.4-46.3) fL RDW Coeff of Leo (11.5-14.5) % Plt Count (130-400) K/uL MPV (7.4-10.4) fL Immature Gran % (Auto) % Neut % (Auto) % Lymph % (Auto) % Ponce % (Auto) % Eos % (Auto) % Baso % (Auto) % Immature Gran # (Auto) (0.00-0.02) K/uL Neut # (Auto) (1.4-6.5) K/uL Lymph # (Auto) (1.2-3.4) K/uL Ponce # (Auto) (0.11-0.59) K/uL Eos # (Auto) (0-0.5) K/uL Baso # (Auto) (0-0.2) K/uL Sodium (136-145) mmol/L Potassium (3.5-5.1) mmol/L Chloride (98-107) mmol/L Carbon Dioxide (21-32) mmol/L Anion Gap (3-11) BUN (7-18) mg/dl Creatinine (0.6-1.4) mg/dl Est Cr Clr Drug Dosing ml/min Est GFR ( Amer) Est GFR (Non-Af Amer) BUN/Creatinine Ratio (10-20) Glucose (70-99) mg/dl POC Glucose (70-99) Calcium (8.5-10.1) mg/dl Total Bilirubin (0.2-1) mg/dl Direct Bilirubin (0-0.2) mg/dl AST (15-37) U/L ALT (12-78) U/L Alkaline Phosphatase (45-117) U/L Total Creatine Kinase (39-308) U/L Total Protein (6.4-8.2) gm/dl Albumin (3.4-5.0) gm/dl Globulin (2.5-4.0) gm/dl Albumin/Globulin Ratio (0.9-2) Lipase (73-393) U/L Urine Color Dark Yellow Urine Appearance Clear (Clear) Urine pH 5.0 (4.5-7.5) Ur Specific Hastings 1.018 (1.000-1.030) Urine Protein Negative (Negative) Urine Glucose (UA) Negative (Negative) Urine Ketones Negative (Negative) Urine Blood 2+ H (Negative) Urine Nitrite Negative (Negative) Urine Bilirubin Negative (Negative) Urine Urobilinogen Negative (Negative) Ur Leukocyte Esterase Trace H (Negative) Urine WBC (Auto) 1-5 (0-5) /hpf Urine RBC (Auto) 0-4 (0-4) /hpf U Hyaline Cast (Auto) 0 (0-5) /lpf U Epithel Cells (Auto) 5-10 H (0-5) /lpf Urine Bacteria (Auto) Negative (Negative) PG Care Time/CCT Total # of Minutes Spent Total Time Spent with Patient: Total time spent is greater than 50% in coordination of care (as documented) at patient's floor/unit and/or counseling patient: (1) Acute renal failure Acute renal failure type: unspecified Qualified Code(s): N17.9 - Acute kidney failure, unspecified (2) ST elevation myocardial infarction (STEMI) Involved coronary artery: unspecified coronary artery Qualified Code(s): I21.3 - ST elevation (STEMI) myocardial infarction of unspecified site
--- NOTE | 2019-08-17 12:13 | CT Scan Report ---
CT head/brain wo con CLINICAL HISTORY: 79 years-old Male presenting with Confusion, evaluate for CVA. TECHNIQUE: Multidetector CT imaging of the head was performed without the use of intravenous contrast . IV contrast: None. One or more dose lowering techniques were used consistent with the principles of ALARA (as low as reasonably achievable), including automatic exposure control, mA or kV adjustment t o individual patient size, and/or use of iterative reconstruction. COMPARISON: None. CT DOSE (mGy.cm): The estimated cumulative dose is 690.05 mGycm. FINDINGS: Bias Binding Folder topogram: The patient is edentulous. Proportional ventricular and sulcal prominence, likely age-related parenchymal volume loss. No hemorr jerica. Periventricular and subcortical white matter hypoattenuation, nonspecific but likely indicative of chronic small vessel ischemic change. 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 No acute te rritorial infarct. No mass effect or midline shift. No extra-axial fluid collection. Paranasal sinuse s and mastoid air cells clear. Calvarium intact. Intracranial atherosclerosis noted. IMPRESSION: 1. 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 No acute intracranial abnormality. ACT 112: Negative or not required by law. Electronically signed by: Baldomero Dill M.D. 08/17/2019 12:12 PM
[2019-08-17] MEDS: PIPERACILLIN/TAZOBACTAM 3.375 GM in DEXTROSE 5% 100 ML IV SCH (17:41)
[2019-08-17 17:53] LABS: BUN Creatinine Ratio 27.4 (10-20); Calcium 9.3 mg/dl (8.5-10.1); Creatinine Clr Calc Pharmacy 34.6 ml/min; Est GFR (Non-African American) 36.2; Potassium 3.5 mmol/L (3.5-5.1)
[2019-08-17 18:06] LABS: Troponin I 0.56 ng/ml (0-0.045)
[2019-08-17] MEDS: METOPROLOL TARTRATE 25 MG TAB PO SCH (20:19)
[2019-08-17] MEDS: OLANZAPINE 2.5 MG TAB PO SCH (20:20)
[2019-08-18] MEDS: PIPERACILLIN/TAZOBACTAM 3.375 GM in DEXTROSE 5% 100 ML IV SCH ×3 (01:31→17:59)
[2019-08-18 05:56] LABS: Hemoglobin 15.9 g/dL (14.0-18.0); Mean Corpuscular Hgb Conc 33.1 g/dL (32-36); Mean Corpuscular Volume 93.6 fL (80-100); Mean Platelet Volume 12.2 fL (7.4-10.4); Platelet Count 193 K/uL (130-400); RDW Coefficient of Variation 13.2 % (11.5-14.5); RDW Standard Deviation 45.5 fL (36.4-46.3); Red Blood Count 5.13 M/uL (4.7-6.1); White Blood Count 11.28 K/uL (4.8-10.8)
[2019-08-18 06:30] LABS: Albumin Globulin Ratio 0.5 (0.9-2); Albumin Level 2.1 gm/dl (3.4-5.0); BUN Creatinine Ratio 27.6 (10-20); Bilirubin Direct 0.3 mg/dl (0-0.2); Calcium 8.8 mg/dl (8.5-10.1); Creatinine Clr Calc Pharmacy 37.6 ml/min; Est GFR (African American) 46.4; Est GFR (Non-African American) 40.1; Globulin 4.3 gm/dl (2.5-4.0); Potassium 3.3 mmol/L (3.5-5.1); Total Protein 6.4 gm/dl (6.4-8.2)
[2019-08-18] MEDS: METOPROLOL TARTRATE 25 MG TAB PO SCH ×3 (08:28→20:23)
[2019-08-18] MEDS: DOCUSATE SODIUM 100 MG CAP PO SCH (08:30)
[2019-08-18] MEDS: OLANZAPINE 2.5 MG TAB PO SCH (08:30)
[2019-08-18] MEDS ORDERED: POTASSIUM CHLORIDE 20 MEQ TABCR PO ONE (08:30)
[2019-08-18] MEDS: ASPIRIN 81 MG ECTAB PO SCH (08:30)
[2019-08-18] MEDS: CLOPIDOGREL BISULFATE 75 MG TAB PO SCH (08:30)
[2019-08-18] MEDS: ISOSORBIDE MONO EXTENDED REL 60 MG TABCR PO SCH (08:30)
[2019-08-18] MEDS: HEPARIN SOD 5,000 UNIT/0.5 ML VIAL SQ SCH ×2 (08:31→20:26)
[2019-08-18] MEDS: FAMOTIDINE 20 MG TAB PO SCH (08:31)
--- NOTE | 2019-08-18 14:28 | Urology Progress Note ---
Date of Service August 18, 2019 Assessment & Plan (1) Acute renal failure: (2) Obstructed, uropathy: 79yo M admitted with FADI, UR, transaminitis, hypoglycemia, possible aspiration pneumonia, recent STEMI Creatinine improved to 1.62 today with max drainage. Maintain resendez catheter to allow max medical rest for at least two weeks. If patient discharged to rehab facility, can arrange passive TOV in 2 weeks. If unable to void, please reinsert catheter and contact our service for follow-up management. Thank you for allowing us to participate in the acute care of Mr. Wilson. Please reconsult us with additional questions, concerns or changes in patient status. Subjective 79 yo M with acute urinary retention, FADI and multiple comorbidities. Creatinine improved to 1.62 today with max drainage. Pt is awake, but disoriented, unable to answer questions. No family members at bedside. He does not appear to be in discomfort from resendez catheter at this time. Per nursing, he was pulling at catheter and has a bedside sitter. Resendez draining concentrated yellow urine. Now on Zosyn IV for presumed aspiration pneumonia. Review of Systems Review of Systems: Unobtainable due to cognitive status Physical Exam Physical Exam: NAD Awake, disoriented, cooperative Normal respiratory effort Abd nondistended Uncircumcised penis. Resendez catheter intact, no trauma or urethral bleeding No pedal edema Results & Data Vital Signs (Past 12 Hours) Vital Signs Temp Pulse Pulse Resp BP Pulse Ox 08/18/19 10:40 68 08/18/19 09:22 51 L 08/18/19 05:46 36.4 C L 52 L 18 103/56 L 98 PG Care Time/CCT Total # of Minutes Spent Total Time Spent with Patient: Total time spent is greater than 50% in coordination of care (as documented) at patient's floor/unit and/or counseling patient: (1) Acute renal failure Acute renal failure type: unspecified Qualified Code(s): N17.9 - Acute kidney failure, unspecified
--- NOTE | 2019-08-18 14:53 | Hospitalist Progress Note ---
Date of Service August 18, 2019 Assessment & Plan (1) Acute renal failure: - Likely related to urinary obstruction -- Cr improved following placement of resendez in ER. - Trend renal function daily -- level improved from 3.85 to 1.6 during this admission. Baseline ~1.4. - Holding nephrotoxic agents, including home Lasix. - Hold IV fluids to avoid volume overload in setting of chronic diastolic CHF. (2) Obstructed, uropathy: - 1700 cc urine output following resendez placement. - Urology consulted, need to maintain resendez for ~2 weeks. - Avoid alpha blockers due to recent STEMI. (3) Metabolic encephalopathy: - Developed acute confusion during this hospital admission, no improvement over last 24 hours. - May be related to hospital delirium -- had similar symptoms during last admission per discharge summary. - Increase Zyprexa to 2.5 mg qAM, 5 mg qPM -- caution with QT prolongation. - Currently requiring 1:1 supervision; re-orient frequently. - U/a was negative for UTI. - CT A/P showed mild left basilar opacity, likely pneumonia -- on Zosyn IV for coverage of aspiration PNA. 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 - Required psych consult during last admission for agitation/delirium. (4) Trouble swallowing: - CT head negative for acute CVA. - Speech therapy recommended crushing pills, approved minced and moist diet. (5) CAD (coronary artery disease): - Admitted 08/03/19 for STEMI; had occluded diagonal noted on cardiac cath, cardio recommended medical management. - Continue ASA 81 mg indefinitely, Plavix 75 mg daily x 1 year, Imdur as prescribed. - Decreased Metoprolol to 12.5 mg BID due to bradycardia and borderline hypotension. - Holding statin due to elevated LFTs. - EKG showed T wave inversion in anterolateral leads, resolution of ST segment elevation; Trop was minimally elevated at 0.560, likely chronically elevated in setting of ARF. (6) Chronic diastolic heart failure: - Echo on 08/03 showed mildly reduced EF 40-45%, mid aortic regurg and fadi netic to dyskinetic apex. - Monitor net I/Os and daily weights -- holding IV fluids due to crackles noted on exam. - Continue Metoprolol (at decreased dose); hold home Lasix due to ARF. - CXR on admission neg for pulm edema. (7) ST elevation myocardial infarction (STEMI): - As noted above, occurred earlier this month. - Continue cardiac meds as prescribed. - Mildly elevated trop with no significant EKG findings during this admission. (8) Hyperlipidemia: - Holding statin due to elevated LFTs. (9) Bradycardia: - HR improved to 50-60's on monitor after decreasing Metoprolol dose. - Decreased Metoprolol to 12.5 mg BID. - Continue to monitor HR on telemetry; will need to continue beta blockade if tolerating. (10) Transaminitis: - CT A/P showed right hepatic lobe lesion, 2.6 cm -- likely benign but recommend follow up imaging in future. - RUQ US showed subtle nodularity, likely early cirrhosis but was otherwise negative. - LFTs are improving overall, monitor daily. - Holding home statin. (11) CKD (chronic kidney disease), stage III: - Baseline Cr 1.4; currently elevated, see above. (12) Type II diabetes mellitus: - Hgb A1C was 5.8 on 08/03/19. - Hold home Glimepiride; d/c'ed SSI as pt. was hypoglycemic on 08/17. - Continue to monitor accuchecks ac/hs. (13) HTN (hypertension): - BP has been borderline low -- holding Amlodipine. - Decreased Metoprolol to 12.5 mg BID. - Continue Imdur as prescribed. (14) GERD (gastroesophageal reflux disease): - Famotidine 20 mg daily. K level 3.3 - ordered K 40 mEq PO. DVT ppx: Heparin q12hr. Dispo: Med/surg with tele for PT/OT evaluation, treatment of acute renal failure and confusion. Supervising Physician Co-Signing Physician Notes Attending Attestation: Chart reviewed in detail, care plan d/w BORIS Quinonez. I agree w/ the connor components of her documentation except - chronic diastolic CHF under problem list should be chronic systolic/diastolic CHF. Very complicated 79 yo male with recent hospitalization for STEMI. Complicated by severe encephalopathy requiring use of zyprexa. Re-admitted due to urinary retention, acute kidney injury (likely obstructive in nature), and severe delirium. FADI nearly resolved. Delirium/encephalopathy persists - we will obtain MRI brain to r/o new strokes or other pathology. Agree w/ increasing HS dose of zyprexa. Consider checking ammonia level in light of ?cirrhosis on recent abdominal imaging. Transaminitis - etiology uncertain - but slowly improving. Other plans per Ms Quinonez. Houston Nation MD Subjective Pt remains confused, requiring 1:1 supervision due to agitation, attempting to climb out of bed. He is not alert to person or place on exam. He did not swallow his pills today but chewed them - therefore he has a white coating on his tongue. No evidence of overt aspiration during meals. PT/OT recommending SNF but his son would prefer discharge to home. Will continue to address discharge plan josef with case management and his family members. Review of Systems Review of Systems: Unobtainable due to cognitive status Neurologic: + confusion Physical Exam Physical Exam: General: Resting comfortably HEENT: NC/AT; PERRLA with EOMI; [place] conjunctiva, MMM. No erythema of posterior pharynx Neck: Supple and nontender Cardiac: RRR Lungs: CTA bilaterally Abdomen: Bowel normoactive X 4; Nontender to palpation Extremities: Warm. No edema present Neuro: Not alert to person or place. Skin: No rash Results & Data Vital Signs (Past 12 Hours) Vital Signs Temp Pulse Pulse Resp BP Pulse Ox 08/18/19 10:40 68 08/18/19 09:22 51 L 08/18/19 05:46 36.4 C L 52 L 18 103/56 L 98 Laboratory Results 08/18/19 08/18/19 08/18/19 Range/Units 11:44 07:37 05:21 WBC (4.8-10.8) K/uL RBC (4.7-6.1) M/uL Hgb (14.0-18.0) g/dL Hct (42-52) % MCV (80-100) fL MCH (25-34) pg MCHC (32-36) g/dL RDW Std Deviation (36.4-46.3) fL RDW Coeff of Leo (11.5-14.5) % Plt Count (130-400) K/uL MPV (7.4-10.4) fL Sodium 139 (136-145) mmol/L Potassium 3.3 L (3.5-5.1) mmol/L Chloride 109 H (98-107) mmol/L Carbon Dioxide 27 (21-32) mmol/L Anion Gap 3.0 (3-11) BUN 45 H (7-18) mg/dl Creatinine 1.62 H (0.6-1.4) mg/dl Est Cr Clr Drug Dosing 37.6 ml/min Est GFR ( Amer) 46.4 Est GFR (Non-Af Amer) 40.1 BUN/Creatinine Ratio 27.6 H (10-20) Glucose 92 (70-99) mg/dl POC Glucose 84 75 (70-99) Calcium 8.8 (8.5-10.1) mg/dl Total Bilirubin 1.0 (0.2-1) mg/dl Direct Bilirubin 0.3 H (0-0.2) mg/dl AST 134 H (15-37) U/L ALT 178 H (12-78) U/L Alkaline Phosphatase 228 H (45-117) U/L Troponin I (0-0.045) ng/ml Total Protein 6.4 (6.4-8.2) gm/dl Albumin 2.1 L (3.4-5.0) gm/dl Globulin 4.3 H (2.5-4.0) gm/dl Albumin/Globulin Ratio 0.5 L (0.9-2) 08/18/19 08/17/19 08/17/19 Range/Units 05:21 22:43 20:27 WBC 11.28 H (4.8-10.8) K/uL RBC 5.13 (4.7-6.1) M/uL Hgb 15.9 (14.0-18.0) g/dL Hct 48.0 (42-52) % MCV 93.6 (80-100) fL MCH 31.0 (25-34) pg MCHC 33.1 (32-36) g/dL RDW Std Deviation 45.5 (36.4-46.3) fL RDW Coeff of Leo 13.2 (11.5-14.5) % Plt Count 193 (130-400) K/uL MPV 12.2 H (7.4-10.4) fL Sodium (136-145) mmol/L Potassium (3.5-5.1) mmol/L Chloride (98-107) mmol/L Carbon Dioxide (21-32) mmol/L Anion Gap (3-11) BUN (7-18) mg/dl Creatinine (0.6-1.4) mg/dl Est Cr Clr Drug Dosing ml/min Est GFR ( Amer) Est GFR (Non-Af Amer) BUN/Creatinine Ratio (10-20) Glucose (70-99) mg/dl POC Glucose 108 H (70-99) Calcium (8.5-10.1) mg/dl Total Bilirubin (0.2-1) mg/dl Direct Bilirubin (0-0.2) mg/dl AST (15-37) U/L ALT (12-78) U/L Alkaline Phosphatase (45-117) U/L Troponin I 0.525 H* (0-0.045) ng/ml Total Protein (6.4-8.2) gm/dl Albumin (3.4-5.0) gm/dl Globulin (2.5-4.0) gm/dl Albumin/Globulin Ratio (0.9-2) 08/17/19 08/17/19 08/17/19 Range/Units 17:03 16:46 11:40 WBC (4.8-10.8) K/uL RBC (4.7-6.1) M/uL Hgb (14.0-18.0) g/dL Hct (42-52) % MCV (80-100) fL MCH (25-34) pg MCHC (32-36) g/dL RDW Std Deviation (36.4-46.3) fL RDW Coeff of Leo (11.5-14.5) % Plt Count (130-400) K/uL MPV (7.4-10.4) fL Sodium 139 (136-145) mmol/L Potassium 3.5 (3.5-5.1) mmol/L Chloride 107 (98-107) mmol/L Carbon Dioxide 26 (21-32) mmol/L Anion Gap 6.0 (3-11) BUN 48 H (7-18) mg/dl Creatinine 1.76 H (0.6-1.4) mg/dl Est Cr Clr Drug Dosing 34.6 ml/min Est GFR ( Amer) 42.0 Est GFR (Non-Af Amer) 36.2 BUN/Creatinine Ratio 27.4 H (10-20) Glucose 108 H (70-99) mg/dl POC Glucose 94 108 H (70-99) Calcium 9.3 (8.5-10.1) mg/dl Total Bilirubin (0.2-1) mg/dl Direct Bilirubin (0-0.2) mg/dl AST (15-37) U/L ALT (12-78) U/L Alkaline Phosphatase (45-117) U/L Troponin I 0.560 H* (0-0.045) ng/ml Total Protein (6.4-8.2) gm/dl Albumin (3.4-5.0) gm/dl Globulin (2.5-4.0) gm/dl Albumin/Globulin Ratio (0.9-2) PG Care Time/CCT Total # of Minutes Spent Total Time Spent with Patient: Total time spent is greater than 50% in coordination of care (as documented) at patient's floor/unit and/or counseling patient: (1) Acute renal failure Acute renal failure type: unspecified Qualified Code(s): N17.9 - Acute kidney failure, unspecified (2) ST elevation myocardial infarction (STEMI) Involved coronary artery: unspecified coronary artery Qualified Code(s): I2 1.3 - ST elevation (STEMI) myocardial infarction of unspecified site
[2019-08-18] MEDS ORDERED: HALOPERIDOL LACTATE 5 MG/ML 1 ML VIAL IV ONE (16:00)
[2019-08-18] MEDS ORDERED: OLANZapine 5 MG TABLET PO SCH (21:00)
[2019-08-18] MEDS ORDERED: HALOPERIDOL LACTATE 5 MG/ML 1 ML VIAL IM ONE (23:45)
[2019-08-19] MEDS: PIPERACILLIN/TAZOBACTAM 3.375 GM in DEXTROSE 5% 100 ML IV SCH ×2 (01:48→09:26)
[2019-08-19] MEDS ORDERED: GADOBUTROL 65ML VIAL IV PRN (02:29)
--- NOTE | 2019-08-19 07:15 | Magnetic Resonance Report ---
MRI OF THE BRAIN COMBO CLINICAL HISTORY: Change in mental status. COMPARISON STUDY: CT of the brain dated 08/17/2019. TECHNIQUE: MRI of the brain was performed utilizing various T1 and T2-weighted sequences in the axial , sagittal, and coronal planes. Contrast-enhanced sequences were acquired following the administratio n of 7.4 cc of Gadavist. Examination is degraded by motion artifact. FINDINGS: Brain parenchyma: There is age-related involutional change noting advanced subcortical and periventri cular microangiopathic disease. There is no hemorrhage or mass effect. There is no restricted diffusi on to suggest acute ischemia. No enhancing mass lesion is identified on the postcontrast images. A fo cus of right frontal encephalomalacia is consistent with a remote infarct. Chronic lacunar infarcts a re present within the basal ganglia bilaterally, both thalami, the steve, and both cerebellar hemisphe res. [place]icona-white matter differentiation is preserved. No extra-axial fluid collection is seen. The cer ebellar tonsils are normal in configuration. Ventricles, sulci, and cisterns: Prominent secondary to involutional change. Pituitary and sella: Unremarkable. Intracranial vasculature: Flow voids are maintained at the skull base. The right carotid flow void an d the left vertebral flow-void appear attenuated. Orbits: The bony orbits are grossly intact. Orbital contents are normal in appearance noting bilatera l ocular lens implants. Sinuses and mastoids: Clear. Calvarium: Unremarkable. Cervical cord: Partially visualized cervical spinal cord is normal in morphology and signal intensity . Soft tissues: There is a 1.9 cm nodule identified in the right parotid gland. IMPRESSION: 1. Senescent change and remote infarcts as above. There is no hemorrhage, enhancing mass, or evidence of acute ischemia. 2. Flow-voids at the skull base are maintained. The right carotid and left vertebral flow voids appea r attenuated, likely secondary to atherosclerotic plaque/stenosis. Consider correlation with a CT ang iogram of the brain for further assessment. 3. There is a 1.9 cm nodule in the right parotid gland. Nonemergent ENT follow-up is recommended. ACT 112: Positive. There are findings on this exam that require communication between the performing entity and the patient following Patient Test Result Information Act ([place] Act 112) guidelines. Electronically signed by: Alfa Aguirre M.D. 08/19/2019 7:14 AM
[2019-08-19 07:56] LABS: Hematocrit (blood only) 47.3 % (42-52); Hemoglobin 16.1 g/dL (14.0-18.0); Mean Corpuscular Hemoglobin 31.2 pg (25-34); Mean Corpuscular Volume 91.7 fL (80-100); Mean Platelet Volume 12.1 fL (7.4-10.4); Platelet Count 180 K/uL (130-400); RDW Coefficient of Variation 13.1 % (11.5-14.5); RDW Standard Deviation 43.9 fL (36.4-46.3); Red Blood Count 5.16 M/uL (4.7-6.1); White Blood Count 9.33 K/uL (4.8-10.8)
[2019-08-19 08:26] LABS: Albumin Level 2.3 gm/dl (3.4-5.0); BUN Creatinine Ratio 20.3 (10-20); Calcium 9.1 mg/dl (8.5-10.1); Creatinine Clr Calc Pharmacy 40.3 ml/min; Est GFR (African American) 50.5; Est GFR (Non-African American) 43.6; Potassium 3.4 mmol/L (3.5-5.1)
[2019-08-19 08:29] LABS: Albumin Globulin Ratio 0.5 (0.9-2); Bilirubin,Total 0.9 mg/dl (0.2-1); Globulin 4.4 gm/dl (2.5-4.0); Total Protein 6.7 gm/dl (6.4-8.2)
[2019-08-19] MEDS: FAMOTIDINE 20 MG TAB PO SCH (08:46)
[2019-08-19] MEDS: CLOPIDOGREL BISULFATE 75 MG TAB PO SCH (08:46)
[2019-08-19] MEDS: ASPIRIN 81 MG ECTAB PO SCH (08:47)
[2019-08-19] MEDS: ISOSORBIDE MONO EXTENDED REL 60 MG TABCR PO SCH (08:47)
[2019-08-19] MEDS: HEPARIN SOD 5,000 UNIT/0.5 ML VIAL SQ SCH ×2 (08:50→21:13)
[2019-08-19] MEDS: METOPROLOL TARTRATE 25 MG TAB PO SCH ×2 (08:50→21:14)
[2019-08-19] MEDS: DOCUSATE SODIUM 100 MG CAP PO SCH (08:56)
[2019-08-19] MEDS ORDERED: OLANZAPINE 2.5 MG TAB PO SCH (09:00)
[2019-08-19] MEDS: POTASSIUM CHLORIDE 20 MEQ TABCR PO STA ×2 (09:18→11:02)
[2019-08-19] MEDS ORDERED: haloperidoL 1 MG TAB PO PRN (11:16)
--- NOTE | 2019-08-19 11:35 | Hospitalist Progress Note ---
Date of Service August 19, 2019 Assessment & Plan (1) Acute renal failure: - Likely related to urinary obstruction -- Cr trended down following placement of resendez in ER. - Trend renal function daily -- level improved from 3.85 to 1.5 during this admission. Baseline is around 1.4. - Holding nephrotoxic agents, including home Lasix. - Holding IV fluids to avoid volume overload in setting of chronic diastolic CHF. (2) Obstructed, uropathy: - 1700 cc urine output following resendez placement. - Urology consulted, will need to maintain resendez for ~2 weeks. - Avoid alpha blockers due to recent STEMI. (3) Metabolic encephalopathy: - Developed acute confusion during this hospital admission, worsening over last 24 hours -- likely related to hospital delirium. - Had similar symptoms during last admission per documentation. - No improvement with Zyprexa 2.5 mg qAM, 5 mg qPM -- will start Latuda 20 mg PO daily with Haldol 1 mg prn agitation. - Currently requiring 1:1 supervision; advised to re-orient frequently. - U/a was negative for UTI. - CT A/P showed mild left basilar opacity, likely pneumonia -- on Zosyn IV for aspiration PNA; convert to PO Augmentin if pt is tolerating PO meds. - CT head showed old cortical infarct in right frontal lobe, otherwise negative; brain MRI was negative for acute infarcts, did show atherosclerosis of arteries -- carotid US pending. - Required psych consult during last admission for agitation/delirium. Please refer to HPI above regarding discussion with his son this morning. (4) Trouble swallowing: - CT head negative for acute CVA. - Speech therapy recommends crushing pills, minced and moist diet. (5) CAD (coronary artery disease): - Admitted 08/03/19 for STEMI; had occluded diagonal noted on cardiac cath, cardio recommended medical management. - Continue ASA 81 mg indefinitely, Plavix 75 mg daily x 1 year, Imdur as prescribed. - Decreased Metoprolol to 12.5 mg BID due to bradycardia - HR has improved. - Holding statin due to elevated LFTs. - EKG showed T wave inversion in anterolateral leads, resolution of ST segment elevation; Trop was minimally elevated at 0.560, likely chronically elevated in setting of ARF. (6) Chronic diastolic heart failure: - Echo on 08/03 showed mildly reduced EF 40-45%, mid aortic regurg and akinetic to dyskinetic apex. - Monitor net I/Os and daily weights -- hold IV fluids to avoid volume overload. - Continue Metoprolol (at decreased dose); holding home Lasix in setting of ARF, pt. appears euvolemic. - CXR on admission neg for pulm edema. (7) ST elevation myocardial infarction (STEMI): - As noted above, occurred earlier this month. - Continue cardiac meds as prescribed. - Mildly elevated trop with no significant EKG findings. (8) Hyperlipidemia: - Holding statin due to elevated LFTs. (9) Bradycardia: - HR improved to 60's after decreasing Metoprolol dose to 12.5 mg BID. - Continue to monitor HR on telemetry. (10) Transaminitis: - CT A/P showed right hepatic lobe lesion, 2.6 cm -- likely benign but recommend follow up imaging in future. - RUQ US showed subtle nodularity, likely early cirrhosis but was otherwise negative. - LFTs are improving. T. bili is now WNL. Alk phos remains elevated but appears to be chronic elevation based on previous labs. - Holding home statin. (11) CKD (chronic kidney disease), stage III: - Baseline Cr 1.4; currently slightly elevated above baseline, see above. (12) Type II diabetes mellitus: - Hgb A1C was 5.8 on 08/03/19. - Hold home Glimepiride; d/c'ed SSI as pt. was hypoglycemic on 08/17. - Continue to monitor accuchecks ac/hs - BG has been well controlled. (13) HTN (hypertension): - BP was borderline low -- hold home Amlodipine. - Decreased Metoprolol to 12.5 mg BID. - Continue Imdur as prescribed. (14) GERD (gastroesophageal reflux disease): - Famotidine 20 mg daily. K level 3.4 - ordered K 40 mEq PO then 20 mEq PO this afternoon due to persistently low levels, QT prolongation on EKG. DVT ppx: Heparin q12hr. Dispo: Med/surg with tele for treatment of hospital delirium. Will need continued PT/OT evaluation -- will re-evaluate patient today to discuss discharge planning. His son Monroe was updated with plan of care via phone call (see HPI). Supervising Physician Co-Signing Physician Notes Attending Attestation: Pt seen/examined, chart reviewed in detail, care plan d/w PA She Quinonez. I agree w/ the connor components of her documentation except - chronic diastolic CHF under problem list should be chronic systolic/diastolic CHF. Very complicated 79 yo male with recent hospitalization for STEMI. Complicated by severe encephalopathy requiring use of zyprexa. Re-admitted due to urinary retention, acute kidney injury (likely obstructive in nature), and severe delirium. FADI resolved. Delirium/encephalopathy persist. During bedside rounds patient was quite confused. RN and a sitter were at bedside. Upon entering the room he said "you staying out of trouble?" He thought it was 1995, thought it was July, and wasn't sure what holiday was coming up next week. He knew he was in the hospital but couldn't tell me why he was here. Staff report ongoing confusion and agitation. exam - gen - disheveled, alert, but oriented as above mouth - MMM heart - RRR, s1 s2 lungs - CTA b/l abd - soft NT neuro - no asterixis ext - no edema psych - a/o x 2 I spoke with Parminder Wilson JR later in the afternoon by phone. I told Parminder that I concurred with Ms Quinonez's assessment that his father was very confused, agitated, and combative. I agreed that he was unsafe to return home at this time given the severe d elirium. I tried to explain what delirium is and the causes of such (infection, hospital psychosis, etc). Discussed MRI brain results with him (numerous old strokes). While trying to discuss the test results and review plan of care Parminder became quite agitated. He stated that he wanted his father home "by [place]" and that if we didn't release him soon he would "call his retail support associate and bring the retail support associate to the hospital." At one point he told me he wanted his father transferred to another hospital; I told him I would be willing to do that; he then changed his mind. I explained once again that until the delirium was controlled his father would need to remain hospitalized. Again Parminder became agitated. He again reiterated he would "call his retail support associate". He also stated "my father is fine when he is at home." Parminder alluded to being removed by security during the prior hospital stay for his father. He did not give details of that incident but stated he wasn't happy that this happened. I asked Parminder if he could come to hospital to see his father. He stated he could not because he doesn't drive. He stated further that his mother is on hospice and he is the primary caregiver for her; thus, he cannot leave her alone. When I asked him how his father would get home from the hospital he stated he would have to call a friend to come and get him. Later in the call again he said "I want him home by [place]" and then, shortly after that, he said "you have until Thursday". I assumed he meant that the care team only had until Thursday to get his father well. He hung up the phone after making these statements. Given the threatening remarks made over the phone today to case management, Ms Quinonez, and myself I alerted the charge nurse for the floor to the situation. She was going to relay my concerns to the psychiatric nursing aide for the hospital. I also plan to reach out to the senior sales administrator on-call tomorrow AM. Houston Nation MD Subjective Pt. is very confused this morning, requiring 1:1 supervision due to agitation/confusion. He did walk to the restroom with walker and was steady on his feet per bedside aide. Took his pills this morning and is tolerating PO intake. No improvement in confusion with Zyprexa PO, will convert to Latuda scheduled with Haldol prn. Had a BM this morning. Discussed case with his son Monroe this morning from 11:19 to 11:26 am. We discussed the plan of care -- including his father's increased agitation during this admission leading to 1:1 supervision. He has had increased confusion over the past 24 hours and is not alert to person or place this morning. Reviewed MRI of brain results; son reported that he was told his father had "multiple blood clots in his brain" during admission at [facility]. Carotid US is pending to evaluate for stenosis. His son reported that his father develops confusion in the hospital and this confusion will improve once he returns to home. The [facility] team advised that he is not safe for return to home at this time due to confusion/agitation and the need for 1:1 supervision. His son was persistent that his father will improve if he is discharged home from the hospital. Advised the son to come into the hospital to see his father in person to evaluate if he is safe for discharge to home; he is not able to visit due to lack of transportation/caring for his mother who is currently enrolled in hospice at home. His son also repeatedly stated that he will be calling both "the foster care case manager and my rubber process hand" directly after the call. Review of Systems Review of Systems: Unobtainable due to cognitive status Neurologic: + confusion Physical Exam Physical Exam: General: Frail appearing elderly male, no acute distress. HEENT: NC/AT; PERRLA with EOMI; [place] conjunctiva, MMM. No erythema of posterior pharynx Neck: Supple and nontender Cardiac: RRR Lungs: CTA bilaterally Abdomen: Bowel normoactive X 4; Nontender to palpation Extremities: Warm. No edema present Neuro: Very confused, not alert to person or place -- likely related to hospital delirium. Skin: No rash Results & Data Vital Signs (Past 12 Hours) Vital Signs Temp Pulse Pulse Resp BP BP Pulse Ox 08/19/19 11:12 36.6 C 58 L 108/61 98 08/19/19 07:21 36.5 C 88 20 135/64 100 08/19/19 07:00 72 08/19/19 00:36 66 Laboratory Results 08/19/19 08/19/19 08/19/19 Range/Units 11:40 07:53 07:41 WBC (4.8-10.8) K/uL RBC (4.7-6.1) M/uL Hgb (14.0-18.0) g/dL Hct (42-52) % MCV (80-100) fL MCH (25-34) pg MCHC (32-36) g/dL RDW Std Deviation (36.4-46.3) fL RDW Coeff of Leo (11.5-14.5) % Plt Count (130-400) K/uL MPV (7.4-10.4) fL Sodium 142 (136-145) mmol/L Potassium 3.4 L (3.5-5.1) mmol/L Chloride 111 H (98-107) mmol/L Carbon Dioxide 26 (21-32) mmol/L Anion Gap 5.0 (3-11) BUN 31 H (7-18) mg/dl Creatinine 1.51 H (0.6-1.4) mg/dl Est Cr Clr Drug Dosing 40.3 ml/min Est GFR ( Amer) 50.5 Est GFR (Non-Af Amer) 43.6 BUN/Creatinine Ratio 20.3 H (10-20) Glucose 86 (70-99) mg/dl POC Glucose 100 H 75 (70-99) Calcium 9.1 (8.5-10.1) mg/dl Magnesium 2.0 (1.8-2.4) mg/dl Total Bilirubin 0.9 (0.2-1) mg/dl AST 94 H (15-37) U/L ALT 146 H (12-78) U/L Alkaline Phosphatase 229 H (45-117) U/L Total Protein 6.7 (6.4-8.2) gm/dl Albumin 2.3 L (3.4-5.0) gm/dl Globulin 4.4 H (2.5-4.0) gm/dl Albumin/Globulin Ratio 0.5 L (0.9-2) 08/19/19 08/18/19 08/18/19 Range/Units 07:41 20:25 18:05 WBC 9.33 (4.8-10.8) K/uL RBC 5.16 (4.7-6.1) M/uL Hgb 16.1 (14.0-18.0) g/dL Hct 47.3 (42-52) % MCV 91.7 (80-100) fL MCH 31.2 (25-34) pg MCHC 34.0 (32-36) g/dL RDW Std Deviation 43.9 (36.4-46.3) fL RDW Coeff of Leo 13.1 (11.5-14.5) % Plt Count 180 (130-400) K/uL MPV 12.1 H (7.4-10.4) fL Sodium (136-145) mmol/L Potassium (3.5-5.1) mmol/L Chloride (98-107) mmol/L Carbon Dioxide (21-32) mmol/L Anion Gap (3-11) BUN (7-18) mg/dl Creatinine (0.6-1.4) mg/dl Est Cr Clr Drug Dosing ml/min Est GFR ( Amer) Est GFR (Non-Af Amer) BUN/Creatinine Ratio (10-20) Glucose (70-99) mg/dl POC Glucose 76 83 (70-99) Calcium (8.5-10.1) mg/dl Magnesium (1.8-2.4) mg/dl Total Bilirubin (0.2-1) mg/dl AST (15-37) U/L ALT (12-78) U/L Alkaline Phosphatase (45-117) U/L Total Protein (6.4-8.2) gm/dl Albumin (3.4-5.0) gm/dl Globulin (2.5-4.0) gm/dl Albumin/Globulin Ratio (0.9-2) PG Care Time/CCT Total # of Minutes Spent Total Time Spent with Patient: Total time spent is greater than 50% in coordination of care (as documented) at patient's floor/unit and/or counseling patient: (1) Acute renal failure Acute renal failure type: unspecified Qualified Code(s): N17.9 - Acute kidney failure, unspecified (2) ST elevation myocardial infarction (STEMI) Involved coronary artery: unspecified coronary artery Qualified Code(s): I21.3 - ST elevation (STEMI) myocardial infarction of unspecified site
[2019-08-19] MEDS: LURASIDONE HCL 40 MG TAB PO SCH (12:08)
--- NOTE | 2019-08-19 13:35 | Ultrasound Report ---
BILATERAL CAROTID DOPPLER STUDY HISTORY: Abnormal brain MRI. Possible carotid and vertebral artery stenosis. Change in mental status . COMPARISON: None. TECHNIQUE: Real-time, grayscale, and color Doppler sonography of the carotid arteries was performed. Imaging reviewed in the transverse and longitudinal planes. All measurements were calculated based on NASCET criteria. FINDINGS: Antegrade flow is seen in the bilateral vertebral arteries. The brachial pressures were not obtained. Moderate calcified plaque within the bilateral carotid bifurcations and within the right common carot id artery. The right ICA is completely occluded. The peak systolic velocity within the left ICA is 143 cm/s proximally. The left systolic ratio is 1.4 . IMPRESSION: 1. 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 2. Approximately 50-69% stenosis within the proximal left internal carotid artery due to the calcifie d plaque. ACT 112: Negative or not required by law. Electronically signed by: Loco Edge M.D. 08/19/2019 1:34 PM
[2019-08-19] MEDS ORDERED: POTASSIUM CHLORIDE 20 MEQ TABCR PO ONE (14:00)
[2019-08-19] MEDS: AMPICILLIN/SULBACTAM SOD 3,000 MG in 0.9 % SODIUM CHLORIDE 100 ML IV SCH ×2 (17:48→21:13)
[2019-08-20] MEDS: AMPICILLIN/SULBACTAM SOD 3,000 MG in 0.9 % SODIUM CHLORIDE 100 ML IV SCH ×4 (03:37→21:28)
[2019-08-20 08:26] LABS: Albumin Level 2.3 gm/dl (3.4-5.0); BUN Creatinine Ratio 15.2 (10-20); Calcium 9.4 mg/dl (8.5-10.1); Creatinine Clr Calc Pharmacy 42.6 ml/min; Est GFR (Non-African American) 46.6; Magnesium 1.8 mg/dl (1.8-2.4)
[2019-08-20 08:36] LABS: Albumin Globulin Ratio 0.5 (0.9-2); Bilirubin,Total 0.7 mg/dl (0.2-1); Globulin 4.2 gm/dl (2.5-4.0); Total Protein 6.5 gm/dl (6.4-8.2)
[2019-08-20] MEDS ORDERED: SODIUM CHLORIDE 0.9% 1000ML 1,000 ML IV SCH (08:45)
[2019-08-20] MEDS: HEPARIN SOD 5,000 UNIT/0.5 ML VIAL SQ SCH ×2 (09:43→20:22)
[2019-08-20] MEDS ORDERED: DEXTROSE 5% 500 ML IV SCH (12:00)
--- NOTE | 2019-08-20 13:16 | Hospitalist Progress Note ---
Date of Service August 20, 2019 Assessment & Plan (1) Acute renal failure: - Likely related to urinary obstruction -- Cr trended down following placement of resendez. - Monitor renal function daily -- level peaked at 3.85, now improved to baseline of ~1.4. - Holding nephrotoxic agents, including Lasix. - Hold IV fluids to avoid volume overload in setting of chronic diastolic CHF. (2) Obstructed, uropathy: - 1700 cc urine output following resendez placement. - Urology consulted, maintain resendez for ~2 weeks. - Avoid alpha blockers due to recent STEMI. (3) Metabolic encephalopathy: - Developed acute confusion during this hospital admission, continues to have increased hospital delirium and is requiring 1:1 supervision. - Had similar symptoms during last admission per progress notes. - No improvement with Zyprexa -- started Latuda 20 mg PO daily (renally dosed) with Haldol 1 mg prn agitation on 08/19. - Requiring 1:1 supervision; will attempt to move rooms to allow for more sunlight, re-orient frequently to help with hospital delirium and . - U/a was negative for UTI. - CT A/P showed mild left basilar opacity, likely pneumonia -- converted Zosyn to Unasyn for aspiration PNA (Day 4 of 7) - CT head showed old cortical infarct in right frontal lobe, otherwise negative; brain MRI was negative for acute infarction. - Required psych consult during last admission for agitation/delirium. - His son is very adamant regarding discharge to home by Thursday (refer to HPI on 08/19) -- patient is not appropriate for discharge to home at this time in setting of increased confusion. (4) Trouble swallowing: - CT head & MRI neg for acute CVA. - Speech therapy recommends crushing pills, minced and moist diet. (5) CAD (coronary artery disease): - Admitted 08/03/19 for STEMI; had occluded diagonal noted on cardiac cath, cardio recommended medical management. - Continue ASA 81 mg indefinitely, Plavix 75 mg daily x 1 year, Imdur as prescribed. - Decreased Metoprolol to 12.5 mg BID due to bradycardia - HR is now stable. - Resume statin at decreased dose of 40 mg daily. - EKG showed T wave inversion in anterolateral leads, resolution of ST segment elevation; Trop was minimally elevated at 0.560, likely chronically elevated in setting of ARF. (6) Chronic diastolic heart failure: - Echo on 08/03 showed mildly reduced EF 40-45%, mid aortic regurg and akinetic to dyskinetic apex. - Monitor net I/Os and daily weights -- hold IV fluids to avoid volume overload. - Continue Metoprolol (at decreased dose); holding home Lasix in setting of ARF, pt. appears euvolemic. - CXR on admission neg for pulm edema. (7) ST elevation myocardial infarction (STEMI): - As noted above, occurred earlier this month. - Continue cardiac meds as prescribed. - Mildly elevated trop with no significant EKG findings. (8) Hyperlipidemia: - Resume statin at decreased dose of 40 mg daily as LFTs are improving. (9) Bradycardia: - HR improved to 50-60's after decreasing Metoprolol dose to 12.5 mg BID. - Continue to monitor HR on tele - cannot likely tolerate increased dose of beta blockade. (10) Transaminitis: - CT A/P showed right hepatic lobe lesion, 2.6 cm -- likely benign but recommend follow up imaging in future. - RUQ US showed subtle nodularity, likely early cirrhosis but was otherwise negative. - LFTs are improving since admission. Alk phos remains elevated but appears to be chronic elevation based on previous labs. - Will resume home statin at 50% dose reduction and monitor LFTs daily. (11) CKD (chronic kidney disease), stage III: - Baseline Cr 1.4. (12) Type II diabetes mellitus: - Hgb A1C was 5.8 on 08/03/19. Hold home Glimepiride. - Pt. has been hypoglycemic -- required amp D50 and D5 x 1 bag IV fluid hydration this morning for BG <70. - Continue to monitor gluc checks ac/hs. (13) HTN (hypertension): - BP was previously low, now improved. Will resume home Amlodipine 10 mg daily. - Decreased Metoprolol to 12.5 mg BID due to bradycardia. - Continue Imdur as prescribed. (14) History of CVA (cerebrovascular accident): - Brain MRI showed right frontal lobe encephalomalacia c/w remote infarct and chronic lacunar infarcts within basal ganglia bilat, both thalami, the steve and both cerebellar hemispheres. - Resuming statin at decreased dose, Plavix and ASA. - No evidence of acute infarction; baseline mental status is unclear -- his son reports he does not have confusion at home but ?may have baseline dementia based on brain MRI findings. (15) Carotid stenosis: - Carotid US showed complete occlusion of right ICA and 50-69% stenosis within proximal left internal carotid artery due to calcified plaque. - Continue statin at decreased dose, ASA and Plavix. - No indication for vascular consult. (16) GERD (gastroesophageal reflux disease): - Famotidine 20 mg daily. DVT ppx: Heparin q12hr. Dispo: Med/surg with tele for treatment of hospital delirium. Discharge pending improvement in confusion. No therapy needs anticipated per PT re-evaluation. Supervising Physician Co-Signing Physician Notes Attending Attestation: Chart reviewed in detail, care plan d/w PA Shesaima Quinonez. I agree w/ the connor components of her documentation except - chronic diastolic CHF under problem list again should be chronic systolic/diastolic CHF. Very complicated 79 yo male with recent hospitalization for STEMI. Complicated by severe encephalopathy requiring use of zyprexa. Discharged to home on 08/08/19. Re-admitted 08/16/19 due to urinary retention, acute kidney injury (likely obstructive in nature), and severe delirium. FADI resolved. Delirium/encephalopathy persist requiring adjustments/changes in anti-psychotics. MRI brain obtained -- no acute CVA but numerous old strokes seen. Remains on IV abx for possible LLL pneumonia (aspiration?). Remains compensated from CHF standpoint. Ammonia level wnl . I discussed the social issues today with the nursing filter press supervisor as well as the social insurance administrator on-call regarding the threatening remarks the son made to myself, Ms Quinonez, and social work yesterday. Service excellence was also contacted on Thursday as well. Like yesterday the patient is still not safe to return home at this time due to severe delirium. Consider formal psych evaluation tomorrow for additional recommendations. Vitals/labs remain acceptable . Houston Nation MD Subjective Pt. remains very confused this morning - he did not sleep well last evening therefore he was sleeping throughout most of the morning. He is not alert to person, place or time during exam. Continues to require 1:1 supervision at all times. Review of Systems Review of Systems: Unobtainable due to cognitive status Physical Exam Physical Exam: General: Frail appearing elderly male, not in acute distress. 1:1 supervision required. HEENT: NC/AT; PERRLA with EOMI; [place] conjunctiva, MMM. Dry oral mucosa. Neck: Supple and nontender Cardiac: RRR Lungs: CTA bilaterally Abdomen: Bowel normoactive X 4; Nontender to palpation Extremities: Warm. No edema present Neuro: Very confused, slightly lethargic; not alert to person, place or time; cannot complete full neuro exam due to confusion. Skin: No rash Results & Data Vital Signs (Past 12 Hours) Vital Signs Temp Pulse Pulse Resp BP BP Pulse Ox 08/20/19 08:33 36.1 C L 60 18 150/65 H 98 08/20/19 07:00 61 08/20/19 03:06 36.7 C 65 18 108/75 99 Laboratory Results 08/20/19 08/20/19 08/20/19 Range/Units 12:20 11:39 11:36 Sodium (136-145) mmol/L Potassium (3.5-5.1) mmol/L Chloride (98-107) mmol/L Carbon Dioxide (21-32) mmol/L Anion Gap (3-11) BUN (7-18) mg/dl Creatinine (0.6-1.4) mg/dl Est Cr Clr Drug Dosing ml/min Est GFR ( Amer) Est GFR (Non-Af Amer) BUN/Creatinine Ratio (10-20) Glucose (70-99) mg/dl POC Glucose 100 H 73 69 L* (70-99) Calcium (8.5-10.1) mg/dl Magnesium (1.8-2.4) mg/dl Total Bilirubin (0.2-1) mg/dl AST (15-37) U/L ALT (12-78) U/L Alkaline Phosphatase (45-117) U/L Ammonia (11-32) umol/L Total Protein (6.4-8.2) gm/dl Albumin (3.4-5.0) gm/dl Globulin (2.5-4.0) gm/dl Albumin/Globulin Ratio (0.9-2) 08/20/19 08/20/19 08/20/19 Range/Units 08:56 07:38 07:37 Sodium 146 H (136-145) mmol/L Potassium 5.0 D (3.5-5.1) mmol/L Chloride 114 H (98-107) mmol/L Carbon Dioxide 26 (21-32) mmol/L Anion Gap 6.0 (3-11) BUN 22 H (7-18) mg/dl Creatinine 1.43 H (0.6-1.4) mg/dl Est Cr Clr Drug Dosing 42.6 ml/min Est GFR ( Amer) 54.0 Est GFR (Non-Af Amer) 46.6 BUN/Creatinine Ratio 15.2 (10-20) Glucose 74 (70-99) mg/dl POC Glucose 74 (70-99) Calcium 9.4 (8.5-10.1) mg/dl Magnesium 1.8 (1.8-2.4) mg/dl Total Bilirubin 0.7 (0.2-1) mg/dl AST 75 H (15-37) U/L ALT 125 H (12-78) U/L Alkaline Phosphatase 202 H (45-117) U/L Ammonia 18.8 (11-32) umol/L Total Protein 6.5 (6.4-8.2) gm/dl Albumin 2.3 L (3.4-5.0) gm/dl Globulin 4.2 H (2.5-4.0) gm/dl Albumin/Globulin Ratio 0.5 L (0.9-2) 08/19/19 08/19/19 Range/Units 20:11 16:23 Sodium (136-145) mmol/L Potassium (3.5-5.1) mmol/L Chloride (98-107) mmol/L Carbon Dioxide (21-32) mmol/L Anion Gap (3-11) BUN (7-18) mg/dl Creatinine (0.6-1.4) mg/dl Est Cr Clr Drug Dosing ml/min Est GFR ( Amer) Est GFR (Non-Af Amer) BUN/Creatinine Ratio (10-20) Glucose (70-99) mg/dl POC Glucose 183 H 165 H (70-99) Calcium (8.5-10.1) mg/dl Magnesium (1.8-2.4) mg/dl Total Bilirubin (0.2-1) mg/dl AST (15-37) U/L ALT (12-78) U/L Alkaline Phosphatase (45-117) U/L Ammonia (11-32) umol/L Total Protein (6.4-8.2) gm/dl Albumin (3.4-5.0) gm/dl Globulin (2.5-4.0) gm/dl Albumin/Globulin Ratio (0.9-2) PG Care Time/CCT Total # of Minutes Spent Total Time Spent with Patient: Total time spent is greater than 50% in coordination of care (as documented) at patient's floor/unit and/or counseling patient: (1) Acute renal failure Acute renal failure type: unspecified Qualified Code(s): N17.9 - Acute kidney failure, unspecified (2) ST elevation myocardial infarction (STEMI) Involved coronary artery: unspecified coronary artery Qualified Code(s): I21.3 - ST elevation (STEMI) myocardial infarction of unspecified site
[2019-08-20] MEDS: ATORVASTATIN 40 MG TAB PO SCH (16:42)
[2019-08-20] MEDS: ISOSORBIDE MONO EXTENDED REL 60 MG TABCR PO SCH (16:43)
[2019-08-20] MEDS: CLOPIDOGREL BISULFATE 75 MG TAB PO SCH (16:43)
[2019-08-20] MEDS: METOPROLOL TARTRATE 25 MG TAB PO SCH ×2 (16:45→20:22)
[2019-08-20] MEDS: FAMOTIDINE 20 MG TAB PO SCH (16:46)
[2019-08-20] MEDS: ASPIRIN 81 MG ECTAB PO SCH (16:46)
[2019-08-20] MEDS: DOCUSATE SODIUM 100 MG CAP PO SCH (17:28)
[2019-08-20] MEDS: LURASIDONE HCL 40 MG TAB PO SCH (17:28)
[2019-08-21] MEDS: AMPICILLIN/SULBACTAM SOD 3,000 MG in 0.9 % SODIUM CHLORIDE 100 ML IV SCH ×4 (03:30→21:48)
[2019-08-21 07:14] LABS: Albumin Globulin Ratio 0.6 (0.9-2); Albumin Level 2.2 gm/dl (3.4-5.0); BUN Creatinine Ratio 13.9 (10-20); Bilirubin,Total 0.7 mg/dl (0.2-1); Calcium 8.6 mg/dl (8.5-10.1); Creatinine Clr Calc Pharmacy 49.9 ml/min; Est GFR (African American) 65.4; Est GFR (Non-African American) 56.4; Potassium 3.7 mmol/L (3.5-5.1); Total Protein 6.2 gm/dl (6.4-8.2)
[2019-08-21] MEDS: HEPARIN SOD 5,000 UNIT/0.5 ML VIAL SQ SCH ×2 (09:40→21:48)
[2019-08-21] MEDS: DOCUSATE SODIUM 100 MG CAP PO SCH (10:54)
[2019-08-21] MEDS: AMLODIPINE BESYLATE 5 MG TAB PO SCH (10:57)
--- NOTE | 2019-08-21 11:05 | Hospitalist Progress Note ---
Date of Service August 21, 2019 Assessment & Plan (1) Acute renal failure: - Likely related to urinary obstruction -- Cr trended down following placement of resendez. - Monitor renal function q48hr -- level peaked at 3.85, now improved to below baseline (~1.4) - Holding nephrotoxic agents. - Hold IV fluids to avoid volume overload in setting of chronic diastolic CHF. (2) Obstructed, uropathy: - 1700 cc urine output following resendez placement. - Urology consulted, maintain resendez for ~2 weeks. - Avoid alpha blockers due to recent STEMI. (3) Metabolic encephalopathy: - Developed acute confusion during this hospital admission, continues to have increased hospital delirium with no improvement, requiring 1:1 supervision. - Had similar symptoms during last admission per progress notes. - No improvement with Zyprexa -- started Latuda 20 mg PO daily (renally dosed) with Haldol 1 mg prn agitation. Has not had any improvement on current regimen. - Requiring 1:1 supervision; will downgrade from [facility] and move to [facility] to allow for more sunlight, frequent re-orientation. - Required psych consult during last admission for agitation/delirium; consider repeat psych consult. - Start Thiamine 200 mg PO BID. - U/a was negative for UTI. - CT A/P showed mild left basilar opacity, likely pneumonia -- Unasyn for aspiration PNA (Day 5 of 7) - CT head showed old cortical infarct in right frontal lobe, otherwise negative; brain MRI was negative for acute infarction. - Son is very adamant regarding discharge to home by Thursday (refer to HPI on 08/19) -- patient is not appropriate for discharge to home in setting of confusion. There is also concern for safe discharge planning (refer to dispo) (4) Trouble swallowing: - CT head & MRI neg for acute CVA. - Speech therapy recommends crushing pills, minced and moist diet. (5) CAD (coronary artery disease): - Admitted 08/03/19 for STEMI; had occluded diagonal noted on cardiac cath, cardio recommended medical management. - Continue ASA 81 mg indefinitely, Plavix 75 mg daily x 1 year, Imdur as prescribed. - Decreased Metoprolol to 12.5 mg BID due to bradycardia - HR is stable, downgrade from [facility]. - Resumed statin at decreased dose of 40 mg daily. - EKG showed T wave inversion in anterolateral leads, resolution of ST segment elevation; Trop was minimally elevated at 0.560, likely chronically elevated in setting of ARF. (6) Chronic diastolic heart failure: - Echo on 08/03 showed mildly reduced EF 40-45%, mid aortic regurg and akinetic to dyskinetic apex. - Monitor net I/Os and daily weights -- hold IV fluids to avoid volume overload. - Continue Metoprolol (at decreased dose); hold home Lasix in setting of ARF, currently hypo-euvolemic. (7) ST elevation myocardial infarction (STEMI): - As noted above, occurred earlier this month. - Continue cardiac meds as prescribed. - Mildly elevated trop with no significant EKG findings. (8) Hyperlipidemia: - Resumed statin at decreased dose of 40 mg daily, monitor LFTs q48hr. (9) Bradycardia: - HR improved to 50-60's after decreasing Metoprolol dose to 12.5 mg BID. - Will downgrade from tele to allow for open room in setting of delirium. (10) Transaminitis: - CT A/P showed right hepatic lobe lesion, 2.6 cm -- likely benign but recommend follow up imaging in future. - RUQ US showed subtle nodularity, likely early cirrhosis but was otherwise negative. - LFTs are trending down. Alk phos remains elevated but appears to be chronic e levation based on previous labs. - Resumed home statin at 50% dose reduction. (11) CKD (chronic kidney disease), stage III: - Baseline Cr 1.4. (12) Type II diabetes mellitus: - Hgb A1C was 5.8 on 08/03/19. Hold home Glimepiride. - Pt. has been hypoglycemic -- holding SSI coverage. - Continue to monitor gluc checks ac/hs. (13) HTN (hypertension): - BP was previously low, now improved. Resumed home Amlodipine 10 mg daily. - Decreased Metoprolol to 12.5 mg BID due to bradycardia. - Continue Imdur as prescribed. (14) History of CVA (cerebrovascular accident): - Brain MRI showed right frontal lobe encephalomalacia c/w remote infarct and chronic lacunar infarcts within basal ganglia bilat, both thalami, the steve and both cerebellar hemispheres. - Resumed statin at decreased dose, Plavix and ASA. - No evidence of acute infarction; baseline mental status is unclear -- his son reports he does not have confusion at home but ?may have baseline dementia based on brain MRI findings. (15) Carotid stenosis: - Carotid US showed complete occlusion of right ICA and 50-69% stenosis within proximal left internal carotid artery due to calcified plaque. - Continue statin at decreased dose, ASA and Plavix. - No indication for vascular consult. (16) GERD (gastroesophageal reflux disease): - Famotidine 20 mg daily. DVT ppx: Heparin q12hr. Dispo: Med/surg for treatment of hospital delirium. Discharge pending improvement in confusion. There is a concern for patient safety at discharge - he has 23/03 home supervision by his son Monroe Wilson. His son also cares for the patients at home who is currently enrolled in hospice (per report from son). His son has exhibited violent behavior towards medical providers during updates via phone calls on Thursday, and Thursday. He has previously been escorted out by security during last admission due to violence towards nursing staff (per son report). Case was discussed with mysql database administrator press operator [employer] blocks this weekend along with service excellence on Thursday. Will need to involve office of aging to determine if his son is an appropriate caregiver at home. If his son exhibits any further violent/threatening behavior towards staff, the mysql database administrator press operator [employer] blocks should be contacted immediately. Supervising Physician Co-Signing Physician Notes Attending Attestation: Chart reviewed in detail, care plan d/w BORIS Quinonez. I agree w/ the connor components of her documentation. Very complicated 79 yo male with recent hospitalization for STEMI. Complicated by severe encephalopathy requiring use of zyprexa. Discharged to home on 08/08/19. Re-admitted 08/16/19 due to urinary retention, acute kidney injury (likely obstructive in nature), and severe delirium. FADI resolved. Delirium/encephalopathy persist requiring adjustments/changes in anti-psychotics. He is now on Latuda. MRI brain this admission without acute CVA but numerous old strokes seen. Remains on IV abx for possible LLL pneumonia (aspiration?). Remains compensated from CHF standpoint. Ammonia level wnl. Previous TSH was wnl. Although labs/vitals continue to remain stable he is still requiring 1:1 observation from a sitter for safety purposes. He is still quite confused. Please see Ms Quinonez's documentation regarding the social issues over the last few days. I agree with her assessment of the social issues and the current plan. Apparently the pt's son Parminder called in today and wanted an update about his fa ther. The pt's nurse updated Parminder regarding his status. Parminder again threatened to bring his hot roller to the hospital tomorrow. He apparently had told the nurse that "we all better be ready". I updated the mysql database administrator on-call once again regarding the phone call that took place today between the son and nurse. At this time the patient is not ready for discharge due to ongoing delirium. Recommend formal psych eval for additional medication recommendations. Would also check a B12 level in am. Start empiric thiamine 200mg BID in the rare event he has Wernicke's contributing to mental status. I suspect he has underlying baseline cognitive dysfunction/dementia of a vascular nature given the numerous strokes seen on MRI. Houston Nation MD Subjective Pt. remains confused today, has been requiring 1:1 supervision. He is not alert to person or place, is very lethargic. Cannot obtain detailed review of systems. Re-evaluated patient this afternoon -- he is more awake but not alert to person or place. When questioned about place and year, he states "I don't know the answers to those questions". Review of Systems Review of Systems: Unobtainable due to cognitive status Physical Exam Physical Exam: General: No acute distress; requiring 1:1 supervision. HEENT: NC/AT; PERRLA with EOMI; [place] conjunctiva, MMM. Neck: Supple and nontender Cardiac: RRR Lungs: CTA bilaterally Abdomen: Bowel normoactive X 4; Nontender to palpation Extremities: Warm. No edema present Neuro: Confused; not alert to person or place -- cannot complete full neuro exam. Skin: No rash Results & Data Vital Signs (Past 12 Hours) Vital Signs Temp Pulse Pulse Resp BP BP Pulse Ox 08/21/19 07:29 68 08/21/19 06:32 36.9 C 68 16 147/80 H 94 08/21/19 03:01 36.5 C 64 17 121/70 95 08/20/19 23:18 37.0 C 65 17 120/52 L 92 08/20/19 23:07 73 Laboratory Results 08/21/19 08/21/19 08/20/19 Range/Units 07:10 06:25 20:53 Sodium 140 (136-145) mmol/L Potassium 3.7 D (3.5-5.1) mmol/L Chloride 112 H (98-107) mmol/L Carbon Dioxide 26 (21-32) mmol/L Anion Gap 2.0 L (3-11) BUN 17 (7-18) mg/dl Creatinine 1.22 (0.6-1.4) mg/dl Est Cr Clr Drug Dosing 49.9 ml/min Est GFR ( Amer) 65.4 Est GFR (Non-Af Amer) 56.4 BUN/Creatinine Ratio 13.9 (10-20) Glucose 90 (70-99) mg/dl POC Glucose 91 89 (70-99) Calcium 8.6 (8.5-10.1) mg/dl Total Bilirubin 0.7 (0.2-1) mg/dl AST 72 H (15-37) U/L ALT 111 H (12-78) U/L Alkaline Phosphatase 172 H (45-117) U/L Total Protein 6.2 L (6.4-8.2) gm/dl Albumin 2.2 L (3.4-5.0) gm/dl Globulin 4.0 (2.5-4.0) gm/dl Albumin/Globulin Ratio 0.6 L (0.9-2) 08/20/19 08/20/19 08/20/19 Range/Units 16:39 12:20 11:39 Sodium (136-145) mmol/L Potassium (3.5-5.1) mmol/L Chloride (98-107) mmol/L Carbon Dioxide (21-32) mmol/L Anion Gap (3-11) BUN (7-18) mg/dl Creatinine (0.6-1.4) mg/dl Est Cr Clr Drug Dosing ml/min Est GFR ( Amer) Est GFR (Non-Af Amer) BUN/Creatinine Ratio (10-20) Glucose (70-99) mg/dl POC Glucose 97 100 H 73 (70-99) Calcium (8.5-10.1) mg/dl Total Bilirubin (0.2-1) mg/dl AST (15-37) U/L ALT (12-78) U/L Alkaline Phosphatase (45-117) U/L Total Protein (6.4-8.2) gm/dl Albumin (3.4-5.0) gm/dl Globulin (2.5-4.0) gm/dl Albumin/Globulin Ratio (0.9-2) 08/20/19 Range/Units 11:36 Sodium (136-145) mmol/L Potassium (3.5-5.1) mmol/L Chloride (98-107) mmol/L Carbon Dioxide (21-32) mmol/L Anion Gap (3-11) BUN (7-18) mg/dl Creatinine (0.6-1.4) mg/dl Est Cr Clr Drug Dosing ml/min Est GFR ( Amer) Est GFR (Non-Af Amer) BUN/Creatinine Ratio (10-20) Glucose (70-99) mg/dl POC Glucose 69 L* (70-99) Calcium (8.5-10.1) mg/dl Total Bilirubin (0.2-1) mg/dl AST (15-37) U/L ALT (12-78) U/L Alkaline Phosphatase (45-117) U/L Total Protein (6.4-8.2) gm/dl Albumin (3.4-5.0) gm/dl Globulin (2.5-4.0) gm/dl Albumin/Globulin Ratio (0.9-2) PG Care Time/CCT Total # of Minutes Spent Total Time Spent with Patient: Total time spent is greater than 50% in coordination of care (as documented) at patient's floor/unit and/or counseling patient: (1) Acute renal failure Acute renal failure type: unspecified Qualified Code(s): N17.9 - Acute kidney failure, unspecified (2) ST elevation myocardial infarction (STEMI) Involved coronary artery: unspecified coronary artery Qualified Code(s): I 21.3 - ST elevation (STEMI) myocardial infarction of unspecified site
[2019-08-21] MEDS: ATORVASTATIN 40 MG TAB PO SCH (11:12)
[2019-08-21] MEDS: ISOSORBIDE MONO EXTENDED REL 60 MG TABCR PO SCH (11:13)
[2019-08-21] MEDS: CLOPIDOGREL BISULFATE 75 MG TAB PO SCH (11:13)
[2019-08-21] MEDS: FAMOTIDINE 20 MG TAB PO SCH (11:13)
[2019-08-21] MEDS: METOPROLOL TARTRATE 25 MG TAB PO SCH ×2 (11:14→21:48)
[2019-08-21] MEDS: THIAMINE HCL 100 MG TAB PO SCH ×2 (11:14→21:48)
[2019-08-21] MEDS: LURASIDONE HCL 40 MG TAB PO SCH (13:41)
[2019-08-21] MEDS: ASPIRIN 81 MG ECTAB PO SCH (13:42)
[2019-08-21] MEDS: ASPIRIN 81 MG CHEW PO SCH (13:43)
[2019-08-22] MEDS: AMPICILLIN/SULBACTAM SOD 3,000 MG in 0.9 % SODIUM CHLORIDE 100 ML IV SCH ×3 (04:52→17:09)
[2019-08-22 07:19] VITALS: O2SAT 98
[2019-08-22] MEDS: AMLODIPINE BESYLATE 5 MG TAB PO SCH (08:24)
[2019-08-22] MEDS: METOPROLOL TARTRATE 25 MG TAB PO SCH (08:24)
[2019-08-22] MEDS: LURASIDONE HCL 40 MG TAB PO SCH ×2 (08:26→08:30)
[2019-08-22] MEDS: ATORVASTATIN 40 MG TAB PO SCH (08:27)
[2019-08-22] MEDS: ISOSORBIDE MONO EXTENDED REL 60 MG TABCR PO SCH (08:28)
[2019-08-22] MEDS: CLOPIDOGREL BISULFATE 75 MG TAB PO SCH (08:29)
[2019-08-22] MEDS: THIAMINE HCL 100 MG TAB PO SCH (08:30)
[2019-08-22] MEDS: FAMOTIDINE 20 MG TAB PO SCH (08:31)
[2019-08-22] MEDS: HEPARIN SOD 5,000 UNIT/0.5 ML VIAL SQ SCH (08:33)
[2019-08-22] MEDS: ASPIRIN 81 MG CHEW PO SCH (08:34)
[2019-08-22] MEDS: DOCUSATE SODIUM 100 MG CAP PO SCH (08:36)
[2019-08-22 09:46] LABS: Hematocrit (blood only) 45.3 % (42-52); Hemoglobin 15.2 g/dL (14.0-18.0); Mean Corpuscular Hgb Conc 33.6 g/dL (32-36); Mean Corpuscular Volume 92.3 fL (80-100); Mean Platelet Volume 12.3 fL (7.4-10.4); Platelet Count 178 K/uL (130-400); Red Blood Count 4.91 M/uL (4.7-6.1); White Blood Count 7.56 K/uL (4.8-10.8)
[2019-08-22 10:13] LABS: BUN Creatinine Ratio 12.7 (10-20); Calcium 8.7 mg/dl (8.5-10.1); Creatinine Clr Calc Pharmacy 42.9 ml/min; Est GFR (African American) 54.4; Potassium 4.1 mmol/L (3.5-5.1)
--- NOTE | 2019-08-22 15:16 | Discharge Summary ---
Date of Service August 22, 2019 Admission HPI Per Admitting Provider 79 y/o male with generalized abdominal pain over a 2 day period. He has had nausea and vomiting prior to arrival to ED. He has been having hematuria as per family. When Resendez cath was placed, the patient drained 1700ml of blood tinged urine. He now reports feeling better with no abdominal pain. Patient is a poor historian. He declines having F/C, cough, chest pain, SOB, diarrhea, or headache. Primary Care Provider: Mp Sanchez MD Principal Diagnosis Acute renal failure due to urinary obstruction Discharge Exam Constitutional WD/WN, vitals as above Eyes PERRL, conjunctivae normal, anicteric sclerae ENMT external ear and nose normal, oropharynx normal Neck trachea midline, no thyromegaly Respiratory normal respiratory effort, lungs clear to auscultation Cardiovascular RRR, no murmur, no edema Gastrointestinal (Abdomen) normal bowel sounds, soft, nontender, no hepatosplenomegaly Musculoskeletal no cyanosis or clubbing, extremities motor strength 5/5 Skin no rashes, warm and dry Neurologic patellar DTR's 2+ bilat, sensation intact and PERRL, EOMI, accommodation nl, no face palsy, no dysarthria Psychiatric Orientation: alert, oriented to person, oriented to time and cooperative; + not oriented to place Eye Contact: good eye contact Motor Behavior: steady gait and station Lymphatic no cervical or axillary lymphadenopathy Discharge Data Allergies Allergy/AdvReac Type Severity Reaction Status Date / Time No Known Drug Allergies Allergy Verified 08/16/19 12:13 Consultations 08/16/19 17:08 Consult Urology Routine Ordered Studies 08/16/19 17:08 CT abdomen wo con Routine US abdomen limited Routine 08/17/19 11:27 CT head/brain wo con Urgent 08/19/19 00:14 MR brain wo/w con Urgent 08/19/19 08:13 US carotid doppler BI Routine Hospital Course (1) Acute renal failure: - Likely related to urinary obstruction -- Cr trended down following place ment of resendez. - Cr was as high as 3.85, down to below baseline of 1.4 prior to discharge no further fluids needed resendez will stay in place on discharge to allow bladder to rest (2) Obstructed, uropathy: - 1700 cc urine output following resendez placement. - Urology consulted, maintain resendez for ~2 weeks. - Avoid alpha blockers due to recent STEMI. will go home with leg bag, follow up with urology in two weeks for TOV in the office (3) Metabolic encephalopathy: - Developed acute confusion during this hospital admission, was combative and aggressive - Had similar symptoms during last admission per progress notes. - treated with Latuda 20 mg PO daily (renally dosed) with Haldol 1 mg prn agitation finally showed improvement on 08/22 he was calm and cooperative, oriented to person and knew it was July, Priya he ate his breakfast and lunch he stated that all he wanted to do was go home with his son and see his MRI of the brain showed some prior vascular damage, most likely has mild vascular dementia makes him more prone to hospital delirium, will likely have delirium with every hospitalization possible pneumonia on chest x-ray, treated with Unasyn for 5 days certainly the FADI could have contributed but it resolved and he still had delirium for a few days safe to discharge home with his son, therapy cleared him from a mobility/safety standpoint (4) Trouble swallowing: - CT head & MRI neg for acute CVA. - Speech therapy recommends crushing pills, minced and moist diet. son will comply (5) CAD (coronary artery disease): - Admitted 08/03/19 for STEMI; had occluded diagonal noted on cardiac cath, cardio recommended medical management. - Continue ASA 81 mg indefinitely, Plavix 75 mg daily x 1 year, Imdur as prescribed. - Decreased Metoprolol to 12.5 mg BID due to bradycardia - HR is stable ever since the switch - Resumed statin at decreased dose of 40 mg daily. - EKG showed T wave inversion in anterolateral leads, resolution of ST segment elevation; Trop was minimally elevated at 0.560, likely chronically elevated in setting of ARF. (6) Chronic diastolic heart failure: - Echo on 08/03 showed mildly reduced EF 40-45%, mid aortic regurg and akinetic to dyskinetic apex. - Monitor net I/Os and daily weights -- hold IV fluids to avoid volume overload. - Continue Metoprolol (at decreased dose); resume home Lasix on discharge, held initially due to FADI (7) ST elevation myocardial infarction (STEMI): - As noted above, occurred earlier this month. - Continue cardiac meds as prescribed. - Mildly elevated trop with no significant EKG findings. (8) Hyperlipidemia: - Resumed statin at decreased dose of 40 mg daily, monitor LFTs q48hr. (9) Bradycardia: - HR improved to 50-60's after decreasing Metoprolol dose to 12.5 mg BID. (10) Transaminitis: - CT A/P showed right hepatic lobe lesion, 2.6 cm -- likely benign but recommend follow up imaging in future. - RUQ US showed subtle nodularity, likely early cirrhosis but was otherwise ne gative. - LFTs are trending down. Alk phos remains elevated but appears to be chronic elevation based on previous labs. - Resumed home statin at 50% dose reduction. (11) CKD (chronic kidney disease), stage III: - Baseline Cr 1.4. (12) Type II diabetes mellitus: - Hgb A1C was 5.8 on 08/03/19. Hold home Glimepiride, resume on discharge - Pt. has been hypoglycemic -- holding SSI coverage. (13) HTN (hypertension): - BP was previously low, now improved. Resumed home Amlodipine 10 mg daily. - Decreased Metoprolol to 12.5 mg BID due to bradycardia. - Continue Imdur as prescribed. (14) History of CVA (cerebrovascular accident): - Brain MRI showed right frontal lobe encephalomalacia c/w remote infarct and chronic lacunar infarcts within basal ganglia bilat, both thalami, the steve and both cerebellar hemispheres. - Resumed statin at decreased dose, Plavix and ASA. - No evidence of acute infarction; baseline mental status is unclear -- his son reports he does not have confusion at home but ?may have baseline dementia based on brain MRI findings. (15) Carotid stenosis: - Carotid US showed complete occlusion of right ICA and 50-69% stenosis within proximal left internal carotid artery due to calcified plaque. - Continue statin at decreased dose, ASA and Plavix. - No indication for vascular consult. (16) GERD (gastroesophageal reflux disease): Pepcid Total Time Total Time Spent Total Time Spent (In Minutes): 35 Total Time Includes: Examination of the Patient, Discharge Planning, Medication Reconciliation and Other (talking with son over the phone) Discharge Plan Discharge Items Patient Disposition: Home - Home Health Services Reason For Visit: ACUTE KIDNEY INJURY/OBSTRUCTIVE UROPATHY Discharge Diagnosis: Acute kidney injury Urinary retention Condition on Discharge: Good Goals: keep resendez catheter for two weeks, then perform voiding trial stay well nourished increase activity as tolerated, improve strength and mobility Activity: Resume your previous activity Weightbearing: Full weightbearing Non-emergency contact: Primary Care Provider Call non-emergency contact if: you have any medication questions, your symptoms worsen and you have a fever Follow-up/Referrals: Mp Sanchez III, MD [Primary Care Provider] - Diet: Heart Healthy Addtl Attending Provider Instructions: Medications: - METOPROLOL: dose reduced to 12.5mg twice a day from 50mg twice a day Acute kidney injury, urinary obstruction resolved with resendez catheter urology recommends keeping resendez for TWO weeks you can perform a voiding trial at that time if home nurse comfortable inserting resendez then you could do voiding trial at home if they are not able to place resendez then I would recommend scheduling an appointment with urology, it can be with a PA because it is just for voiding trial, see number below renal function back to baseline Acute encephalopathy, altered mental status MRI brain shows some small strokes that are all old likely makes you more prone to changes in mental status changing environment, infection, renal failure can all contribute to this mental status is improving, would likely benefit the most from going home FOLLOW UP - please follow up with Dr. Sanchez in one week, call for appt - please follow up with urology in two weeks for voiding trial if possible, number is [phone] Pending Studies at Discharge: No Stand-Alone Forms: Call Back Authorization, My [facility], Smoking Cessation Medications and DC Order Prescriptions: New metoprolol tartrate 25 mg Tablet 12.5 mg PO BID 30 Days Qty: 30 RF: 2 Continued isosorbide mononitrate 120 mg tablet extended release 24 hr 240 mg PO DAILY Qty: 180 RF: 3 aspirin 81 mg tablet,delayed release (DR/EC) 81 mg PO DAILY RF: 0 docusate sodium 100 mg capsule 100 mg PO DAILY RF: 0 furosemide 20 mg tablet 20 mg PO DAILY RF: 0 glimepiride 2 mg tablet 2 mg PO QAM RF: 0 ranitidine HCl 150 mg capsule 150 mg PO BID RF: 0 atorvastatin 80 mg tablet 80 mg PO DAILY Qty: 90 RF: 3 clopidogrel 75 mg Tablet 75 mg PO QAM Qty: 30 RF: 0 Discontinued metoprolol tartrate 50 mg Tablet 50 mg PO BID Qty: 60 RF: 0 No Action nitroglycerin [Nitrostat] 0.4 mg tablet, sublingual See Rx Instructions SL Q5M PRN (Reason: Chest Pain) Qty: 25 RF: 3 amlodipine 10 mg tablet 5 mg PO DAILY RF: 0 Discharge Orders: Discharge Order (Routine); Ordered 08/22/19 Ordered By: Huber Patiño Admission Data Admit Date/Time: 08/16/19 14:53 Attending Provider: Huber Patiño Admit Provider: Jeff Carrasco Primary Care Provider: Mp Sanchez III Other Providers: Leonardo Shabazz I. Other Interventions: Discharge Summary Assessment (RN) Last Done: 08/22/19 16:00 DC Date/Time DO NOT enter until pt leaves facility: 08/22/19 17:40
[2019-08-22 15:34] VITALS: TEMP 97.9
[2019-08-22 16:05] VITALS: BP 136/75; PULSE 71
== END 2019-08-22 17:40 | disposition home health service (06) | DRG 682 ==
LOC: ED 11:49 → SUATTDRO 14:53 → 2N 14:53 → 4W 08-21 14:40

== ENCOUNTER 2019-12-01 19:35 | Inpatient (IN) ==
[2019-12-01] MEDS ORDERED: SODIUM CHLORIDE 0.9% 500 ML IV ONE (19:59)
[2019-12-01] MEDS ORDERED: ACETAMINOPHEN 1,000 MG/100 ML VIAL IV STA (19:59)
[2019-12-01] MEDS ORDERED: CEFEPIME 2,000 MG/20 ML VIAL IV STA (19:59)
--- NOTE | 2019-12-01 20:03 | Emergency Department Note ---
Impression & Plan Sepsis, Acute UTI, Acute hyponatremia, Hypokalemia, Hypomagnesemia, Tachycardia ED Provider Note NAME: JAMES DAVIES SR AGE: 79 SEX: M : 1940 ARRIVES VIA: Ambulance INFORMANT: [Patient][ems, nurse] ED PROVIDER(S): [Alfa Luther MD] CHIEF COMPLAINT: Pain, shivering HISTORY OF PRESENT ILLNESS: The patient is a 79-year-old male who is a very poor historian. As per the nursing staff, EMS and the patient, he has had shivering and shaking for 5 hours. There has been some body pain and a headache. The patient denies any cough or congestion. There has been no shortness of breath, no vomiting or diarrhea. He does wear a chronic Blue catheter. The patient is a very poor historian and very hard of hearing. As result, no further history obtainable. REVIEW OF SYSTEMS: Unobtainable given his mental state and difficulty hearing. PMHx/PSHx: See Below SOCIAL HISTORY: See Below. PHYSICAL EXAM: GENERAL: Patient is in no acute distress. HEENT: No acute trauma, normocephalic atraumatic, mucous membranes moist, no nasal congestion, no scleral icterus. NECK: No stridor, no adenopathy, no meningismus, trachea is midline. LUNGS: Clear to auscultation bilaterally, no wheeze, no rhonchi, breath sounds equal. HEART: Tachycardic, regular rhythm, no murmurs. ABDOMEN: Soft, nontender, bowel sounds positive, no hernias, no peritonitis. Blue catheter noted draining dark yellow, cloudy urine. EXTREMITIES: No cyanosis or edema, full range of motion of all the joints without pain or difficulty, no signs for acute trauma. NEUROLOGIC: Awake, poor historian, does answer simple questions, some slight speech slur noted. Moves all extremities equally. SKIN: No rash, no jaundice, no diaphoresis. DIFFERENTIAL DIAGNOSIS: Sepsis, UTI, pneumonia, metabolic, electrolyte abnormalities, cardiac sources, intracerebral event, toxicologic, neurologic, as well as other pathologies. EMERGENCY DEPARTMENT COURSE/PROCEDURES: ECG: Indication was tachycardia. EKG shows a sinus tachycardia with an potential old septal infarct. The rate was 112. QTc was 453. There were some ST depressions laterally. There were no PVCs. Compared to an EKG from 20 August 2019, the rate has increased. The lateral ST changes have improved. Continuous Cardiac Monitoring: An order was placed for continuous cardiac monitoring. The monitor shows a rate of 111 with sinus tachycardia. Critical Care Note: I have personally spent greater than 42 minutes of critical care time in the direct management of this patient. This includes bedside care, interpretation of diagnostic studies, and testing, discussion with consultants, patient, and family members, and other required patient management activities. This 42 minutes is in excess of all separately billable procedures. MEDICAL DECISION MAKING: There is a mild leukocytosis which would be consistent with infection. No anemia. No concerning coagulopathy. Sodium, potassium and magnesium were all low. Calcium was low. There was an elevation to the cardiac troponin but this appears baseline looking back at previous testing. His troponin number today was actually lower than it has been in the past. Lactic acid level and procalcitonin levels were both normal making severe sepsis less likely. Urinalysis is consistent with infection. Chest film shows some congestion at the left base, I suspect this is atelectasis rather than pneumonia as the patient has had no cough or congestion. Brain CT showed no acute bleed or mass- effect. EKG showed a sinus tachycardia, no acute ischemia. On exam, the patient was in no significant distress. The patient received IV saline for hydration. Patient was given IV potassium, IV magnesium, IV Tylenol. He received IV cefepime as empiric antibiotic coverage. The patient is persistently tachycardic. He does appear to have early sepsis based on our work-up. He does have some electrolyte abnormalities that require correction. Hospitalization is warranted. I spoke to the patient, I spoke with the son on the phone. I did speak with case management. The on-call hospitalist was consulted. Past Med/Surg History Medical History CAD (coronary artery disease) CHF (congestive heart failure), NYHA class III (Acute 10/05/14) Elevated troponin (Acute) Generalized weakness (Acute) Myocardial infarction Surgical History Hx of heart artery stent Family History Other Family history non-contributory Social History Preferred Language: Bruneian Communication Ability: Impaired Sheep Boner Required: No Beliefs That Will Affect Care: None Current Living Situation: Family Current Living Situation Comment: lives with son and Feels Safe at Home: Yes Smoking Status: Former smoker Hx Alcohol Use: No Hx Substance Use: No Allergies Allergies Allergy/AdvReac Type Severity Reaction Status Date / Time No Known Drug Allergies Allergy Unknown Verified 12/01/19 21:28 Home Meds Home Medications Medication Instructions Recorded Confirmed aspirin 81 mg tablet,delayed 81 mg PO DAILY 06/09/19 12/01/19 release docusate sodium 100 mg capsule 100 mg PO DAILY 06/09/19 12/01/19 furosemide 20 mg tablet 20 mg PO DAILY tab 06/09/19 12/01/19 glimepiride 2 mg tablet 2 mg PO QAM 06/09/19 12/01/19 amlodipine 10 mg tablet 5 mg PO DAILY tab 08/25/19 12/01/19 Previous Rx's Medication Instructions Recorded isosorbide mononitrate 120 mg 240 mg PO DAILY #180 tab 04/01/19 tablet,extended release 24 hr atorvastatin 80 mg tablet 80 mg PO DAILY #90 tab 06/09/19 metoprolol tartrate 12.5 mg PO BID 30 Days #30 tab 08/22/19 nitroglycerin 0.4 mg sublingual See Rx Instructions SL Q5M PRN #25 08/25/19 tablet tab clopidogrel 75 mg tablet 75 mg PO QAM #30 tab 09/14/19 Results & Data (ED) Vital Signs Vital Signs - 24 hr 12/01/19 19:59 12/01/19 20:00 12/01/19 20:46 Temperature 36.9 C Temperature Source Oral Pulse Rate 121 H 117 H 111 H Pulse Rate from SpO2 Sensor 116 H Pulse Rhythm Regular Regular Pulse Strength Normal Respiratory Rate 21 18 18 Respiratory Effort / Characteristics Non-Labored Spontaneous Respiratory Depth Normal Respiratory Pattern Regular Blood Pressure 158/90 H 171/101 H Blood Pressure Mean 127 119 Blood Pressure Position Lying Pulse Oximetry 97 96 97 Oxygen Delivery Method Room Air Room Air Sepsis Recent Fever Within 48 Hours No Sepsis New/Unexplained Change in Mental Status No Sepsis Action Taken by Nursing No Action Required 12/01/19 21:16 12/01/19 21:30 12/01/19 21:40 Temperature Temperature Source Pulse Rate 111 H 109 H 107 H Pulse Rate from SpO2 Sensor 111 H 107 H 107 H Pulse Rhythm Pulse Strength Respiratory Rate 16 19 15 Respiratory Effort / Characteristics Respiratory Depth Respiratory Pattern Blood Pressure 149/79 H 152/88 H Blood Pressure Mean 102 109 Blood Pressure Position Pulse Oximetry 96 95 95 Oxygen Delivery Method Sepsis Recent Fever Within 48 Hours Sepsis New/Unexplained Change in Mental Status Sepsis Action Taken by Nursing 12/01/19 21:50 12/01/19 22:00 12/01/19 22:01 Temperature Temperature Source Pulse Rate 102 H 106 H 105 H Pulse Rate from SpO2 Sensor 98 H 104 H 102 H Pulse Rhythm Pulse Strength Respiratory Rate 25 H 14 17 Respiratory Effort / Characteristics Respiratory Depth Respiratory Pattern Blood Pressure 139/89 Blood Pressure Mean 103 Blood Pressure Position Pulse Oximetry 95 94 96 Oxygen Delivery Method Sepsis Recent Fever Within 48 Hours Sepsis New/Unexplained Change in Mental Status Sepsis Action Taken by Nursing 12/01/19 22:10 12/01/19 22:30 Temperature Temperature Source Pulse Rate 100 H 97 H Pulse Rate from SpO2 Sensor 102 H Pulse Rhythm Pulse Strength Respiratory Rate 19 16 Respiratory Effort / Characteristics Respiratory Depth Respiratory Pattern Blood Pressure 156/85 H Blood Pressure Mean 108 Blood Pressure Position Pulse Oximetry 95 97 Oxygen Delivery Method Sepsis Recent Fever Within 48 Hours Sepsis New/Unexplained Change in Mental Status Sepsis Action Taken by [facility] Medications Current Medication List: was personally reviewed by me Laboratory Data Attestation: I reviewed the patient's lab results. Result diagrams: 12/01/19 20:29 12/01/19 20:29 Lab Results 12/01/19 12/01/19 12/01/19 Range/Units 19:45 19:45 20:29 WBC 13.90 H (4.8-10.8) K/uL RBC 4.43 L (4.7-6.1) M/uL Hgb 14.4 (14.0-18.0) g/dL Hct 41.9 L (42-52) % MCV 94.6 (80-100) fL MCH 32.5 (25-34) pg MCHC 34.4 (32-36) g/dL RDW Std Deviation 48.1 H (36.4-46.3) fL RDW Coeff of Leo 13.8 (11.5-14.5) % Plt Count 130 (130-400) K/uL MPV 11.3 H (7.4-10.4) fL Immature Gran % (Auto) 0.2 % Neut % (Auto) 85.5 % Lymph % (Auto) 4.7 % [place] % (Auto) 9.2 % Eos % (Auto) 0.3 % Baso % (Auto) 0.1 % Immature Gran # (Auto) 0.03 H (0.00-0.02) K/uL Neut # (Auto) 11.87 H (1.4-6.5) K/uL Lymph # (Auto) 0.66 L (1.2-3.4) K/uL [place] # (Auto) 1.28 H (0.11-0.59) K/uL Eos # (Auto) 0.04 (0-0.5) K/uL Baso # (Auto) 0.02 (0-0.2) K/uL PT (9.0-12.0) Seconds INR (0.9-1.1) APTT (21.0-31.0) Seconds PTT Ratio Sodium (136-145) mmol/L Potassium (3.5-5.1) mmol/L Chloride (98-107) mmol/L Carbon Dioxide (21-32) mmol/L Anion Gap (3-11) BUN (7-18) mg/dl Creatinine (0.6-1.4) mg/dl Est Cr Clr Drug Dosing ml/min Est GFR ( Amer) Est GFR (Non-Af Amer) BUN/Creatinine Ratio (10-20) Glucose (70-99) mg/dl Osmolality (280-300) mOsm/kg Lactate (0.4-2.0) mmol/L Calcium (8.5-10.1) mg/dl Magnesium (1.8-2.4) mg/dl Total Bilirubin (0.2-1) mg/dl AST (15-37) U/L ALT (12-78) U/L Alkaline Phosphatase (45-117) U/L Troponin I (0-0.045) ng/ml Total Protein (6.4-8.2) gm/dl Albumin (3.4-5.0) gm/dl Globulin (2.5-4.0) gm/dl Albumin/Globulin Ratio (0.9-2) Procalcitonin (0-0.5) ng/ml Urine Color Yellow Urine Appearance Turbid A (Clear) Urine pH 8.0 H (4.5-7.5) Ur Specific [place] 1.017 (1.000-1.030) Urine Protein 1+ H (Negative) Urine Glucose (UA) 1+ H (Negative) Urine Ketones Negative (Negative) Urine Blood 3+ H (Negative) Urine Nitrite Positive A (Negative) Urine Bilirubin Negative (Negative) Urine Urobilinogen Negative (Negative) Ur Leukocyte Esterase 3+ H (Negative) Urine WBC (Auto) >30 H (0-5) /hpf Urine RBC (Auto) >30 H (0-4) /hpf U Hyaline Cast (Auto) 5-10 H (0-5) /lpf U Epithel Cells (Auto) >30 H (0-5) /lpf Urine Bacteria (Auto) 4+ H (Negative) Triple Phos Crystals Present A (None Prsent) Amorphous Sediment Present A (None Prsent) Urine Yeast Not Reportable Urine Osmolality 550 (500-800) mOsm/kg 12/01/19 12/01/19 12/01/19 Range/Units 20:29 20:29 20:29 WBC (4.8-10.8) K/uL RBC (4.7-6.1) M/uL Hgb (14.0-18.0) g/dL Hct (42-52) % MCV (80-100) fL MCH (25-34) pg MCHC (32-36) g/dL RDW Std Deviation (36.4-46.3) fL RDW Coeff of Leo (11.5-14.5) % Plt Count (130-400) K/uL MPV (7.4-10.4) fL Immature Gran % (Auto) % Neut % (Auto) % Lymph % (Auto) % [place] % (Auto) % Eos % (Auto) % Baso % (Auto) % Immature Gran # (Auto) (0.00-0.02) K/uL Neut # (Auto) (1.4-6.5) K/uL Lymph # (Auto) (1.2-3.4) K/uL [place] # (Auto) (0.11-0.59) K/uL Eos # (Auto) (0-0.5) K/uL Baso # (Auto) (0-0.2) K/uL PT 11.6 (9.0-12.0) Seconds INR 1.1 (0.9-1.1) APTT 26.5 (21.0-31.0) Seconds PTT Ratio 0.9 Sodium 126 L (136-145) mmol/L Potassium 2.8 L (3.5-5.1) mmol/L Chloride 98 (98-107) mmol/L Carbon Dioxide 21 (21-32) mmol/L Anion Gap 8.0 (3-11) BUN 15 (7-18) mg/dl Creatinine 0.82 (0.6-1.4) mg/dl Est Cr Clr Drug Dosing 76.7 ml/min Est GFR ( Amer) 98.2 Est GFR (Non-Af Amer) 84.7 BUN/Creatinine Ratio 17.8 (10-20) Glucose 167 H (70-99) mg/dl Osmolality (280-300) mOsm/kg Lactate 1.5 (0.4-2.0) mmol/L Calcium 7.1 L (8.5-10.1) mg/dl Magnesium 1.5 L (1.8-2.4) mg/dl Total Bilirubin 0.5 (0.2-1) mg/dl AST 23 (15-37) U/L ALT 40 (12-78) U/L Alkaline Phosphatase 89 (45-117) U/L Troponin I 0.158 H* (0-0.045) ng/ml Total Protein 5.5 L (6.4-8.2) gm/dl Albumin 2.4 L (3.4-5.0) gm/dl Globulin 3.1 (2.5-4.0) gm/dl Albumin/Globulin Ratio 0.8 L (0.9-2) Procalcitonin (0-0.5) ng/ml Urine Color Urine Appearance (Clear) Urine pH (4.5-7.5) Ur Specific [place] (1.000-1.030) Urine Protein (Negative) Urine Glucose (UA) (Negative) Urine Ketones (Negative) Urine Blood (Negative) Urine Nitrite (Negative) Urine Bilirubin (Negative) Urine Urobilinogen (Negative) Ur Leukocyte Esterase (Negative) Urine WBC (Auto) (0-5) /hpf Urine RBC (Auto) (0-4) /hpf U Hyaline Cast (Auto) (0-5) /lpf U Epithel Cells (Auto) (0-5) /lpf Urine Bacteria (Auto) (Negative) Triple Phos Crystals (None Prsent) Amorphous Sediment (None Prsent) Urine Yeast Urine Osmolality (500-800) mOsm/kg 12/01/19 12/01/19 Range/Units 20:29 20:30 WBC (4.8-10.8) K/uL RBC (4.7-6.1) M/uL Hgb (14.0-18.0) g/dL Hct (42-52) % MCV (80-100) fL MCH (25-34) pg MCHC (32-36) g/dL RDW Std Deviation (36.4-46.3) fL RDW Coeff of Leo (11.5-14.5) % Plt Count (130-400) K/uL MPV (7.4-10.4) fL Immature Gran % (Auto) % Neut % (Auto) % Lymph % (Auto) % [place] % (Auto) % Eos % (Auto) % Baso % (Auto) % Immature Gran # (Auto) (0.00-0.02) K/uL Neut # (Auto) (1.4-6.5) K/uL Lymph # (Auto) (1.2-3.4) K/uL [place] # (Auto) (0.11-0.59) K/uL Eos # (Auto) (0-0.5) K/uL Baso # (Auto) (0-0.2) K/uL PT (9.0-12.0) Seconds INR (0.9-1.1) APTT (21.0-31.0) Seconds PTT Ratio Sodium (136-145) mmol/L Potassium (3.5-5.1) mmol/L Chloride (98-107) mmol/L Carbon Dioxide (21-32) mmol/L Anion Gap (3-11) BUN (7-18) mg/dl Creatinine (0.6-1.4) mg/dl Est Cr Clr Drug Dosing ml/min Est GFR ( Amer) Est GFR (Non-Af Amer) BUN/Creatinine Ratio (10-20) Glucose (70-99) mg/dl Osmolality 300 (280-300) mOsm/kg Lactate (0.4-2.0) mmol/L Calcium (8.5-10.1) mg/dl Magnesium (1.8-2.4) mg/dl Total Bilirubin (0.2-1) mg/dl AST (15-37) U/L ALT (12-78) U/L Alkaline Phosphatase (45-117) U/L Troponin I (0-0.045) ng/ml Total Protein (6.4-8.2) gm/dl Albumin (3.4-5.0) gm/dl Globulin (2.5-4.0) gm/dl Albumin/Globulin Ratio (0.9-2) Procalcitonin 0.08 (0-0.5) ng/ml Urine Color Urine Appearance (Clear) Urine pH (4.5-7.5) Ur Specific [place] (1.000-1.030) Urine Protein (Negative) Urine Glucose (UA) (Negative) Urine Ketones (Negative) Urine Blood (Negative) Urine Nitrite (Negative) Urine Bilirubin (Negative) Urine Urobilinogen (Negative) Ur Leukocyte Esterase (Negative) Urine WBC (Auto) (0-5) /hpf Urine RBC (Auto) (0-4) /hpf U Hyaline Cast (Auto) (0-5) /lpf U Epithel Cells (Auto) (0-5) /lpf Urine Bacteria (Auto) (Negative) Triple Phos Crystals (None Prsent) Amorphous Sediment (None Prsent) Urine Yeast Urine Osmolality (500-800) mOsm/kg Administered Medications Discontinued Medications Sodium Chloride (Nss) 500 mls @ 999 mls/hr IV .Q31M ONE Stop: 12/01/19 20:29 Last Infusion: 12/01/19 20:44 Dose: 0 mls/hr Documented by: [id number] Admin: 12/01/19 20:14 Dose: 999 mls/hr Documented by: [id number] Cefepime HCl (Maxipime) 2,000 mg in 20 mls @ 5 mls/min IV NOW STA; Protocol Stop: 12/01/19 20:02 Last Admin: 12/01/19 20:14 Dose: 5 mls/min Documented by: [id number] Acetaminophen (Ofirmev) 1,000 mg in 100 mls @ 400 mls/hr IV NOW STA Stop: 12/01/19 20:13 Last Infusion: 04/02/20 20:43 Dose: 0 mls/hr Documented by: [id number] Admin: 12/01/19 20:14 Dose: 400 mls/hr Documented by: [id number] Magnesium Sulfate/Dextrose (Magnesium Sulfate / D5w) 1 gm in 100 mls @ 100 mls/hr IV ONE ONE Stop: 12/01/19 22:01 Last Infusion: 12/01/19 22:20 Dose: 0 mls/hr Documented by: [id number] Admin: 12/01/19 21:19 Dose: 100 mls/hr Documented by: [id number] Potassium Chloride (K Vasiliy / Wtr) 10 meq in 100 mls @ 100 mls/hr IV ONE ONE Stop: 12/01/19 22:10 Last Infusion: 12/01/19 22:26 Dose: 0 mls/hr Documented by: [id number] Admin: 12/01/19 21:24 Dose: 100 mls/hr Documented by: [id number] Imaging Data Radiologist's Impression: XR chest 1V portable CLINICAL HISTORY: SEPSIS dyspnea COMPARISON STUDY: 08/02/2019 FINDINGS: Mild interstitial change left base. Lungs otherwise appear clear. Diaphragms are smooth. IMPRESSION: Mild interstitial infiltrate left lung base. CT head/brain wo con CT DOSE: 537.48 mGy.cm HISTORY: Mental status change confusion TECHNIQUE: Multiaxial CT images of the head were performed without the use of intravenous contrast. A dose lowering technique was utilized adhering to the principles of ALARA. Comparison: 08/17/2019 Findings: The paranasal sinuses and mastoid air cells are clear. The calvarium and skull base are intact. The ventricles and sulci are within normal limits. There is no mass, hematoma, midline shift, or acute infarct. Age-related atrophy and chronic small vessel change Impression: No acute intracranial abnormality. Age-related atrophy and chronic small vessel change Blood Pressure Blood Pressure Findings: Elevated blood pressure Blood Pressure Disposition: further management by hospitalist Discharge Plan Visit Data Chief Complaint: Pain (Generalized) ED Provider: Alfa Luther Discharge Problem: Sepsis, Acute UTI, Acute hyponatremia, Hypokalemia, Hypomagnesemia, Tachycardia Patient Disposition: Being Evaluated by Hospitalist Condition: Fair Forms Stand Alone Forms: My [facility] Prescriptions Prescriptions: No Action isosorbide mononitrate 120 mg tablet extended release 24 hr 240 mg PO DAILY Qty: 180 RF: 3 aspirin 81 mg tablet,delayed release (DR/EC) 81 mg PO DAILY RF: 0 docusate sodium 100 mg capsule 100 mg PO DAILY RF: 0 furosemide 20 mg tablet 20 mg PO DAILY RF: 0 glimepiride 2 mg tablet 2 mg PO QAM RF: 0 atorvastatin 80 mg tablet 80 mg PO DAILY Qty: 90 RF: 3 nitroglycerin [Nitrostat] 0.4 mg tablet, sublingual See Rx Instructions SL Q5M PRN (Reason: Chest Pain) Qty: 25 RF: 3 amlodipine 10 mg tablet 5 mg PO DAILY RF: 0 clopidogrel 75 mg tablet 75 mg PO QAM Qty: 30 RF: 5 metoprolol tartrate 25 mg Tablet 12.5 mg PO BID 30 Days Qty: 30 RF: 2 Referrals Referrals: Mp Sanchez III, MD [Primary Care Provider] - Discharge Problem: Sepsis Qualifiers: Sepsis type: sepsis due to unspecified organism Sepsis acute organ dysfunction status: without acute organ dysfunction Qualified Code(s): A41.9 - Sepsis, unspecified organism
[2019-12-01 20:14] LABS: Appearance Urine Turbid (Clear); Bacteria Urine Automated 4+ (Negative); Bilirubin Urine Negative (Negative); Blood Urine 3+ (Negative); Color Urine Yellow; Epithelial Cell Urine Auto >30 /lpf (0-5); Glucose Urine UA 1+ (Negative); Ketones Urine Negative (Negative); Leukocyte Esterase Urine 3+ (Negative); Nitrite Urine Positive (Negative); RBC Urine Automated >30 /hpf (0-4); Specific Gravity Urine 1.017 (1.000-1.030); Urobilinogen Urine Negative (Negative); WBC Urine Automated >30 /hpf (0-5)
[2019-12-01 20:20] LABS: Protein Urine 1+ (Negative)
[2019-12-01 20:21] LABS: Sulfosalicylic Acid Urine Positive (Negative)
--- NOTE | 2019-12-01 20:32 | XRay Report ---
XR chest 1V portable CLINICAL HISTORY: SEPSIS dyspnea COMPARISON STUDY: 08/02/2019 FINDINGS: Mild interstitial change left base. Lungs otherwise appear clear. Diaphragms are smooth. IMPRESSION: Mild interstitial infiltrate left lung base. ACT 112: Negative or not required by law. The above report was generated using voice recognition software. It may contain grammatical, syntax or spelling errors. Electronically signed by: Jay Rocha M.D. 12/01/2019 8:31 PM
[2019-12-01 20:37] LABS: Basophils # (auto) 0.02 K/uL (0-0.2); Basophils % (auto) 0.1 %; Eosinophils # (auto) 0.04 K/uL (0-0.5); Eosinophils % (auto) 0.3 %; Hematocrit (blood only) 41.9 % (42-52); Hemoglobin 14.4 g/dL (14.0-18.0); Immature Granulocytes # (auto) 0.03 K/uL (0.00-0.02); Immature Granulocytes % (auto) 0.2 %; Lymphocytes # (auto) 0.66 K/uL (1.2-3.4); Lymphocytes % (auto) 4.7 %; Mean Corpuscular Hemoglobin 32.5 pg (25-34); Mean Corpuscular Hgb Conc 34.4 g/dL (32-36); Mean Corpuscular Volume 94.6 fL (80-100); Mean Platelet Volume 11.3 fL (7.4-10.4); Monocytes # (auto) 1.28 K/uL (0.11-0.59); Monocytes % (auto) 9.2 %; Neutrophils # (auto) 11.87 K/uL (1.4-6.5); Neutrophils % (auto) 85.5 %; Platelet Count 130 K/uL (130-400); RDW Coefficient of Variation 13.8 % (11.5-14.5); RDW Standard Deviation 48.1 fL (36.4-46.3); Red Blood Count 4.43 M/uL (4.7-6.1)
[2019-12-01 20:39] LABS: Amorphous Sediment Urine Present (None Prsent); Triple Phosphate Crystal Urine Present (None Prsent)
[2019-12-01 20:53] LABS: INR 1.1 (0.9-1.1); Partial Thromboplastin Ratio 0.9; Partial Thromboplastin Time 26.5 Seconds (21.0-31.0); Prothrombin Time 11.6 Seconds (9.0-12.0)
[2019-12-01 20:56] LABS: Albumin Level 2.4 gm/dl (3.4-5.0); BUN Creatinine Ratio 17.8 (10-20); Calcium 7.1 mg/dl (8.5-10.1); Creatinine Clr Calc Pharmacy 76.7 ml/min; Est GFR (African American) 98.2; Est GFR (Non-African American) 84.7; Magnesium 1.5 mg/dl (1.8-2.4); Potassium 2.8 mmol/L (3.5-5.1)
[2019-12-01] MEDS ORDERED: MAGNESIUM SULFATE / D5W 1 GM/100 ML BAG IV ONE (21:02)
[2019-12-01 21:04] LABS: Albumin Globulin Ratio 0.8 (0.9-2); Bilirubin,Total 0.5 mg/dl (0.2-1); Globulin 3.1 gm/dl (2.5-4.0); Total Protein 5.5 gm/dl (6.4-8.2); Troponin I 0.158 ng/ml (0-0.045)
--- NOTE | 2019-12-01 21:10 | CT Scan Report ---
CT head/brain wo con CT DOSE: 537.48 mGy.cm HISTORY: Mental status change confusion TECHNIQUE: Multiaxial CT images of the head were performed without the use of intravenous contrast. A dose lowering technique was utilized adhering to the principles of ALARA. Comparison: 08/17/2019 Findings: The paranasal sinuses and mastoid air cells are clear. The calvarium and skull base are int act. The ventricles and sulci are within normal limits. There is no mass, hematoma, midline shift, or acute infarct. Age-related atrophy and chronic small vessel change Impression: No acute intracranial abnormality. Age-related atrophy and chronic small vessel change ACT 112: Negative or not required by law. The above report was generated using voice recognition software. It may contain grammatical, syntax or spelling errors. Electronically signed by: Jay Rocha M.D. 12/01/2019 9:09 PM
[2019-12-01] MEDS ORDERED: POTASSIUM CHLORIDE / WTR 10 MEQ/100 ML PLCT IV ONE (21:11)
--- NOTE | 2019-12-01 23:49 | History & Physical Report ---
Date of Service December 01, 2019 Assessment & Plan (1) Sepsis: 79 yo M PMHx DM2, HTN, HLD, CAD, CHF with most recent ER 40-45%, obstructive uropathy admitted to the hospital for acute care and management of sepsis 2/2 UTI, chest pain, and electrolyte abnormalities. Sepsis 2/2 UTI: - Pt has a clear source of infection in his indwelling catheter. Unclear on why he has persistent catheter; while reviewing last admission in July plan at that time was to continue catheter for only 2 weeks. Will need clarification from son. - Pt without signs or symptoms of respiratory infection; crackles likely 2/2 some fluid overload. - UA showed infectious process; UCx and BCx x2 taken prior to starting cefepime. - Pt has a history of multiple UTIs in the past growing pansensitive Proteus. Will continue Abx coverage with ceftriaxone. - Will deescalate Abx as UCx results. - Received 500mL NSS bolus in ED; received about 500mL in fluids with IV electrolyte repletion. Is not severely septic; given signs of possible intravascular fluid overload will not give further fluids at this time and continue to monitor. - Trend white count with daily CBC. Hx CAD with complaint of chest pain: - Pt having tachycardia at home per son and was tachycardic to 120s on arrival to hospital. - Pt without chest pain after HR dropped to 90s-100s and not having chest pain at this time. - Troponin elevated on arrival to 0.158 however pt's troponin is chronically elevated with last troponin ~0.5 on last admission. - EKG showed no acute ST/T wave changes; showed sinus tachycardia. - While I expect this was demand ischemia in the setting of tachycardia 2/2 i nfectious process, will trend troponin. - Continue aspirin, Plavix, BB, statin. Hyponatremia: - On arrival pt's Na 126; baseline ~135-140. Pt without neurologic or respirator y symptoms. - Urine osmolality 550, serum osmolality 300; suggests concentration of urine. - Lung exam with findings suggestive of mild fluid overload. - Will give one dose albumin with Lasix and reexamine for changes in lung exam. - Limit free water consumption with fluid restriction 1500mL. Hypokalemia: - Pt on daily furosemide which could account for some element of hypokalemia. - K 2.8 on arrival; repleted with a total of 40meq PO, 40meq IV since arrival to [facility]. - BMP AM with a goal level of 4.0. Hypomagnesemia: - Mg 1.5 on arrival. - Repleted with a total of 3g IV since arrival to [facility]. - Mg level with AM labs. CHF with EF 40-45% in July 2019: - Hold furosemide at this time and monitor following dose of Lasix with Albumin. - Continue metoprolol tartrate 12.5mg BID, Imdur 120mg daily. - Hold diuretics and reevaluate in AM. HTN: - BP stable 160s/80s. Continue amlodipine, metoprolol. HLD: - continue atorvastatin 80mg daily. DM2: - hold home medications; SSI while in hospital. Code Status: DNR/DNI FEN/GI: Heart Healthy DM2 diet. Repleting electrolytes as above. DVT ppx: Lovenox 40mg SQ daily. Dispo: admit to telemetry, dispo pending culture results and sensitivities for appropriate Abx treatment. (2) Acute UTI: (3) Acute hyponatremia: (4) Hypokalemia: (5) Hypomagnesemia: (6) Tachycardia: (7) Chronic combined systolic and diastolic CHF (congestive heart failure): (8) History of CVA (cerebrovascular accident): (9) GERD (gastroesophageal reflux disease): (10) Type II diabetes mellitus: (11) Hyperlipidemia: (12) HTN (hypertension): History of Present Illness Chief Complaint: chills, chest pain Primary Care Provider: Mp Sanchez MD 79 yo M PMHx DM2, HTN, HLD, CAD, CHF with EF 40-45%, obstructive uropathy with chronic indwelling catheter admitted to the hospital for acute care and management of sepsis 2/2 UTI, chest discomfort, and electrolyte abnormalities. In ED patient had ACS workup with EKG which showed sinus tachycardia without ST changes, troponin elevated to 0.158 (chronically elevated), leukocytosis with left shift without elevated procal or lactate. UA concerning for infection, CXR with mild infiltrate, CT head without acute infarct or abnormality. BMP showed hypomagnesemia/hyponatremia/hypokalemia. BCx x2 and UCx collected, then patient received cefepime, NSS 500mL bolus, Mg 1g IV, K Riders 10meq. Inpatient service consulted for admission. On my interview patient is very hard of hearing making history collecting difficult. Some collateral collected from patient's son over the phone. Per patient he was having some chest and abdominal discomfort for several hours that his home nitro did not help, and he was also having chills and weakness x2 days. Denied shortness of breath, nausea, vomiting, diarrhea, hematuria. Has an indwelling catheter but was unable to explain why he has it. No sick contacts. No recent travel. Allergies Allergy/AdvReac Type Severity Reaction Status Date / Time No Known Drug Allergies Allergy Unknown Verified 12/01/19 21:28 Home Medications Home Medications Medication Instructions Recorded Confirmed Type isosorbide mononitrate 120 mg 240 mg PO DAILY #180 tab 04/01/19 12/01/19 Rx tablet,extended release 24 hr aspirin 81 mg tablet,delayed 81 mg PO DAILY 06/09/19 12/01/19 History release atorvastatin 80 mg tablet 80 mg PO DAILY #90 tab 06/09/19 12/01/19 Rx docusate sodium 100 mg capsule 100 mg PO DAILY 06/09/19 12/01/19 History furosemide 20 mg tablet 20 mg PO DAILY tab 06/09/19 12/01/19 History metoprolol tartrate 12.5 mg PO BID 30 Days #30 tab 08/22/19 12/01/19 Rx amlodipine 10 mg tablet 5 mg PO DAILY tab 08/25/19 12/01/19 History nitroglycerin 0.4 mg sublingual See Rx Instructions SL Q5M PRN #25 08/25/19 12/01/19 Rx tablet tab clopidogrel 75 mg tablet 75 mg PO QAM #30 tab 09/14/19 12/01/19 Rx cefdinir 300 mg PO BID 5 Days #10 cap 12/04/19 12/05/19 Rx cefdinir 300 mg PO BID 7 Days #14 cap 12/04/19 12/05/19 Rx nitrofurantoin macrocrystal 100 mg PO BID 7 Days #14 cap 12/04/19 12/05/19 Rx Past Med/Surg History Medical History CAD (coronary artery disease) CHF (congestive heart failure), NYHA class III (Acute 10/05/14) Elevated troponin (Acute) Generalized weakness (Acute) Myocardial infarction Surgical History Hx of heart artery stent Family History Other Family history non-contributory Social History Preferred Language: [place] Zealander Communication Ability: Impaired Pest Control Service Technician Required: No Beliefs That Will Affect Care: None Current Living Situation: Family Current Living Situation Comment: lives with son and Feels Safe at Home: Yes Smoking Status: Unknown if ever smoked Hx Alcohol Use: No Hx Substance Use: No Review of Systems Constitutional: + chills, + malaise and + weakness; no fever Respiratory: no cough, no dyspnea and no wheezing Cardiovascular: + chest pain and + syncope; no dyspnea and no palpitations Gastrointestinal: + abdominal pain (diffuse); no nausea, no vomiting, no constipation and no diarrhea/loose stools Genitourinary: no decreased urination and no hematuria Neurologic: no dizziness and no headache(s) Physical Exam Constitutional: WD/WN, vitals as above Eyes: PERRL, conjunctivae normal, anicteric sclerae ENMT: external ear and nose normal, oropharynx normal Neck: trachea midline, no thyromegaly Respiratory: normal respiratory effort Auscultation: + crackles (bilateral) Cardiovascular: Rate/Rhythm: regular rate, regular rhythm and + tachycardic (100 bpm) Extremities: + edema (trace) Gastrointestinal (Abdomen): normal bowel sounds, soft, nontender, no hepa tosplenomegaly Skin: no rashes, warm and dry Neurologic: PERRL, EOMI, accommodation nl, no face palsy, no dysarthria Psychiatric: A+Ox3, euthymic affect hard of hearing but alert and oriented Genitourinary: catheter draining cloudy yellow urine Results & Data Results & Data ([facility]) Vital Signs (Past 12 Hours) Vital Signs Temp Pulse Resp BP Pulse Ox 12/01/19 22:30 97 H 16 156/85 H 97 12/01/19 22:10 100 H 19 95 12/01/19 22:01 105 H 17 96 12/01/19 22:00 106 H 14 139/89 94 12/01/19 21:50 102 H 25 H 95 12/01/19 21:40 107 H 15 95 12/01/19 21:30 109 H 19 152/88 H 95 12/01/19 21:16 111 H 16 149/79 H 96 12/01/19 20:46 111 H 18 97 12/01/19 20:00 117 H 18 171/101 H 96 12/01/19 19:59 36.9 C 121 H 21 158/90 H 97 Laboratory Results Laboratory Results - last 24 hr 12/01/19 12/01/19 12/01/19 19:45 19:45 20:29 WBC 13.90 H RBC 4.43 L Hgb 14.4 Hct 41.9 L MCV 94.6 MCH 32.5 MCHC 34.4 RDW Std Deviation 48.1 H RDW Coeff of Leo 13.8 Plt Count 130 MPV 11.3 H Immature Gran % (Auto) 0.2 Neut % (Auto) 85.5 Lymph % (Auto) 4.7 [place] % (Auto) 9.2 Eos % (Auto) 0.3 Baso % (Auto) 0.1 Immature Gran # (Auto) 0.03 H Neut # (Auto) 11.87 H Lymph # (Auto) 0.66 L [place] # (Auto) 1.28 H Eos # (Auto) 0.04 Baso # (Auto) 0.02 PT INR APTT PTT Ratio Sodium Potassium Chloride Carbon Dioxide Anion Gap BUN Creatinine Est Cr Clr Drug Dosing Est GFR ( Amer) Est GFR (Non-Af Amer) BUN/Creatinine Ratio Glucose Osmolality Lactate Calcium Magnesium Total Bilirubin AST ALT Alkaline Phosphatase Troponin I Total Protein Albumin Globulin Albumin/Globulin Ratio Procalcitonin Urine Color Yellow Urine Appearance Turbid A Urine pH 8.0 H Ur Specific [place] 1.017 Urine Protein 1+ H Urine Glucose (UA) 1+ H Urine Ketones Negative Urine Blood 3+ H Urine Nitrite Positive A Urine Bilirubin Negative Urine Urobilinogen Negative Ur Leukocyte Esterase 3+ H Urine WBC (Auto) >30 H Urine RBC (Auto) >30 H U Hyaline Cast (Auto) 5-10 H U Epithel Cells (Auto) >30 H Urine Bacteria (Auto) 4+ H Triple Phos Crystals Present A Amorphous Sediment Present A Urine Yeast Not Reportable Urine Osmolality 550 12/01/19 12/01/19 12/01/19 20:29 20:29 20:29 WBC RBC Hgb Hct MCV MCH MCHC RDW Std Deviation RDW Coeff of Leo Plt Count MPV Immature Gran % (Auto) Neut % (Auto) Lymph % (Auto) [place] % (Auto) Eos % (Auto) Baso % (Auto) Immature Gran # (Auto) Neut # (Auto) Lymph # (Auto) [place] # (Auto) Eos # (Auto) Baso # (Auto) PT 11.6 INR 1.1 APTT 26.5 PTT Ratio 0.9 Sodium 126 L Potassium 2.8 L Chloride 98 Carbon Dioxide 21 Anion Gap 8.0 BUN 15 Creatinine 0.82 Est Cr Clr Drug Dosing 76.7 Est GFR ( Amer) 98.2 Est GFR (Non-Af Amer) 84.7 BUN/Creatinine Ratio 17.8 Glucose 167 H Osmolality Lactate 1.5 Calcium 7.1 L Magnesium 1.5 L Total Bilirubin 0.5 AST 23 ALT 40 Alkaline Phosphatase 89 Troponin I 0.158 H* Total Protein 5.5 L Albumin 2.4 L Globulin 3.1 Albumin/Globulin Ratio 0.8 L Procalcitonin Urine Color Urine Appearance Urine pH Ur Specific [place] Urine Protein Urine Glucose (UA) Urine Ketones Urine Blood Urine Nitrite Urine Bilirubin Urine Urobilinogen Ur Leukocyte Esterase Urine WBC (Auto) Urine RBC (Auto) U Hyaline Cast (Auto) U Epithel Cells (Auto) Urine Bacteria (Auto) Triple Phos Crystals Amorphous Sediment Urine Yeast Urine Osmolality 12/01/19 12/01/19 20:29 20:30 WBC RBC Hgb Hct MCV MCH MCHC RDW Std Deviation RDW Coeff of Leo Plt Count MPV Immature Gran % (Auto) Neut % (Auto) Lymph % (Auto) [place] % (Auto) Eos % (Auto) Baso % (Auto) Immature Gran # (Auto) Neut # (Auto) Lymph # (Auto) [place] # (Auto) Eos # (Auto) Baso # (Auto) PT INR APTT PTT Ratio Sodium Potassium Chloride Carbon Dioxide Anion Gap BUN Creatinine Est Cr Clr Drug Dosing Est GFR ( Amer) Est GFR (Non-Af Amer) BUN/Creatinine Ratio Glucose Osmolality 300 Lactate Calcium Magnesium Total Bilirubin AST ALT Alkaline Phosphatase Troponin I Total Protein Albumin Globulin Albumin/Globulin Ratio Procalcitonin 0.08 Urine Color Urine Appearance Urine pH Ur Specific [place] Urine Protein Urine Glucose (UA) Urine Ketones Urine Blood Urine Nitrite Urine Bilirubin Urine Urobilinogen Ur Leukocyte Esterase Urine WBC (Auto) Urine RBC (Auto) U Hyaline Cast (Auto) U Epithel Cells (Auto) Urine Bacteria (Auto) Triple Phos Crystals Amorphous Sediment Urine Yeast Urine Osmolality Supervising Physician Co-Signing Physician Notes Attending addendum: I have physically seen this patient, have supervised the medical residents activities, and agree with the H&P unless as otherwise noted. Assessment and Plan: Sepsis due to UTI/chronic indwelling Blue catheter- Follow urine culture and sensitivity. Follow blood culture and sensitivity. Given cefepime IV in ED. History of recurrent UTIs, most recently pansensitive Proteus, and previously all sensitive to ceftriaxone, which we continued at 2 g IV daily. No further IV fluids. CAD/tachycardia/elevated troponin- The patient will be admitted to telemetry for serial cardiac enzymes, serial EKG's, cardiac rhythm monitoring and a 2-D echocardiogram with Dopplers. Likely type II supply demand mismatch VT. Continue aspirin, metoprolol tartrate, isosorbide mononitrate and amlodipine. Hold furosemide. Hyponatremia/hypokalemia- Replace potassium orally. Urine osmolality 550, serum osmolality 300. Fluid restriction to 1500 cc daily. Follow serial BMP and magnesium levels. Hold furosemide as noted. Remainder orders and notations as noted. Resident Activity Tracking Resident Involvement: Resident Care Provided Care Provided: Adult Hospital Medicine (1) Hyperlipidemia Hyperlipidemia type: unspecified Qualified Code(s): E78.5 - Hyperlipidemia, unspecified (2) Sepsis Sepsis acute organ dysfunction status: without acute organ dysfunction Sepsis type: sepsis due to unspecified organism Qualified Code(s): A41.9 - Sepsis, unspecified organism (3) HTN (hypertension) Hypertension type: essential hypertension Qualified Code(s): I10 - Essential (primary) hypertension
[2019-12-01] MEDS ORDERED: ACETAMINOPHEN 325 MG TAB PO PRN (23:50)
[2019-12-01] MEDS ORDERED: ONDANSETRON INJ 2 MG/ML 2 ML VIAL IV PRN (23:50)
[2019-12-01] MEDS ORDERED: POTASSIUM CHLORIDE 20 MEQ TABCR PO STA (23:50)
[2019-12-01] MEDS ORDERED: NITROGLYCERIN SL 0.4 MG/TAB TAB SL PRN (23:50)
[2019-12-01] MEDS ORDERED: POLYETHYLENE (MIRALAX) 17 GM PACK PO PRN (23:50)
[2019-12-01] MEDS ORDERED: ALBUMIN 25% 50 ML with FUROSEMIDE 40 MG IV ONE (23:50)
[2019-12-01] MEDS ORDERED: DEXTROSE 50% 50 ML SYRINGE IV PRN (23:53)
[2019-12-01] MEDS ORDERED: CARBOHYDRATES FOR HYPOGLYCEMIA PO PRN (23:53)
[2019-12-01] MEDS ORDERED: GLUCOSE 10 TABS/TUBE PO PRN (23:53)
[2019-12-01] MEDS ORDERED: GLUCOSE 40% GEL 15 GM TUBE PO PRN (23:53)
[2019-12-01] MEDS ORDERED: GLUCAGON FOR INJ 1 MG VIAL SQ PRN (23:53)
[2019-12-02] MEDS: MAGNESIUM SULFATE / D5W 1 GM/100 ML BAG IV SCH ×2 (00:21→01:13)
[2019-12-02] MEDS: POTASSIUM CHLORIDE / WTR 10 MEQ/100 ML PLCT IV SCH ×3 (00:22→02:18)
[2019-12-02 02:30] LABS: Basophils # (auto) 0.02 K/uL (0-0.2); Basophils % (auto) 0.1 %; Eosinophils # (auto) 0.08 K/uL (0-0.5); Eosinophils % (auto) 0.4 %; Hematocrit (blood only) 46.1 % (42-52); Hemoglobin 15.7 g/dL (14.0-18.0); Immature Granulocytes # (auto) 0.06 K/uL (0.00-0.02); Immature Granulocytes % (auto) 0.3 %; Lymphocytes # (auto) 1.49 K/uL (1.2-3.4); Lymphocytes % (auto) 8.4 %; Mean Corpuscular Hemoglobin 31.8 pg (25-34); Mean Corpuscular Hgb Conc 34.1 g/dL (32-36); Mean Corpuscular Volume 93.5 fL (80-100); Mean Platelet Volume 11.3 fL (7.4-10.4); Monocytes # (auto) 1.84 K/uL (0.11-0.59); Monocytes % (auto) 10.3 %; Neutrophils # (auto) 14.31 K/uL (1.4-6.5); Neutrophils % (auto) 80.5 %; Platelet Count 143 K/uL (130-400); RDW Coefficient of Variation 14.1 % (11.5-14.5); RDW Standard Deviation 48.2 fL (36.4-46.3); Red Blood Count 4.93 M/uL (4.7-6.1)
[2019-12-02 02:52] LABS: BUN Creatinine Ratio 15.2 (10-20); Calcium 9.1 mg/dl (8.5-10.1); Creatinine Clr Calc Pharmacy 55.6 ml/min; Est GFR (African American) 71.8; Est GFR (Non-African American) 61.9; Potassium 3.6 mmol/L (3.5-5.1)
[2019-12-02] MEDS: INSULIN ASPART 100 UNITS/ML 3 ML PEN SC SCH ×4 (08:19→20:23)
[2019-12-02] MEDS: METOPROLOL TARTRATE 25 MG TAB PO SCH ×2 (08:21→20:23)
[2019-12-02] MEDS: ATORVASTATIN 40 MG TAB PO SCH (08:21)
[2019-12-02] MEDS: ASPIRIN 81 MG ECTAB PO SCH (08:24)
[2019-12-02] MEDS: CLOPIDOGREL BISULFATE 75 MG TAB PO SCH (08:24)
[2019-12-02] MEDS: ENOXAPARIN INJ 40 MG/0.4 ML SYR SQ SCH (08:25)
[2019-12-02] MEDS: AMLODIPINE BESYLATE 5 MG TAB PO SCH (08:25)
[2019-12-02] MEDS: DOCUSATE SODIUM 100 MG CAP PO SCH (08:25)
[2019-12-02] MEDS: ISOSORBIDE MONO EXTENDED REL 60 MG TABCR PO SCH (08:25)
[2019-12-02] MEDS ORDERED: INSULIN GLARGINE SOLOSTAR 100 UNITS/ML 3 ML PEN SC SCH (09:00)
[2019-12-02] MEDS ORDERED: cefTRIAXone SODIUM 1,000 MG in DEXTROSE 5% 50 ML IV SCH (09:00)
[2019-12-02] MEDS: CEFEPIME 2,000 MG in SYRINGE 7.5 ML IV SCH ×2 (09:31→20:25)
--- NOTE | 2019-12-02 14:45 | Electrocardiogram Report ---
Test Reason : Blood Pressure : / mmHG Vent. Rate : 112 BPM Atrial Rate : 112 BPM P-R Int : 182 ms QRS Dur : 090 ms QT Int : 332 ms P-R-T Axes : 090 -29 093 degrees QTc Int : 453 ms Poor data quality, interpretation may be adversely affected Sinus tachycardia Septal infarct , age undetermined Anterolateral ST abnormality Abnormal ECG When compared with ECG of 20-AUG-2019 11:07, Significant changes have occurred Confirmed by Dawood Coronado ([id number]) on 12/02/2019 2:45:43 PM Referred By: REFERRED SELF Confirmed By:Dawood Coronado
--- NOTE | 2019-12-02 14:50 | Electrocardiogram Report ---
Test Reason : Blood Pressure : / mmHG Vent. Rate : 077 BPM Atrial Rate : 077 BPM P-R Int : 174 ms QRS Dur : 088 ms QT Int : 396 ms P-R-T Axes : 083 -10 090 degrees QTc Int : 448 ms Normal sinus rhythm Abnormal ECG When compared with ECG of 01-DEC-2019 20:11, (unconfirmed) Criteria for Septal infarct are no longer Present ST no longer depressed in Anterior leads T wave inversion more evident in Lateral leads Confirmed by Dawood Coronado ([id number]) on 12/02/2019 2:49:47 PM Referred By: REFERRED SELF Confirmed By:Dawood Coronado
--- NOTE | 2019-12-02 15:17 | Cardiology Consultation ---
Date of Consultation December 02, 2019 Assessment & Plan (1) Elevated troponin: Suspect the mildly elevated troponin was related to supply demand mismatch realizing his tachycardia and known 3 vessel coronary artery disease. Would simply continue metoprolol, amlodipine, isosorbide mononitrate, aspirin, and Plavix. No need for repeat echocardiogram. (2) CAD (coronary artery disease): The patient has known severe 3 vessel disease. Continue medical management. (3) Chronic combined systolic and diastolic CHF (congestive heart failure): The patient is compensated at this time. As above, no need for repeat echocardiogram. (4) Tachycardia: The patient was in a sinus tachycardia time of presentation. This seems appropriate realizing his sepsis. History of Present Illness Attending Physician: Jez Butler, History of Present Illness Mr. Wilson is a 79-year-old male admitted yesterday with sepsis from a urinary source, tachycardia, and complaints of chest and abdominal discomfort. The patient's initial troponin was elevated therefore, this consultation was ordered. Of note, the patient follows with Dr. Sifuentes in the outpatient setting. The patient was in his usual state of health until approximately 2 days prior to presentation when he began to notice chills and significant fatigue. On the day of presentation, the patient experienced several hours of chest abdominal discomfort. He administered nitroglycerin which did not delicia his symptoms. He presented emergency room for further care. On arrival here, patient was noted to be in sinus tachycardia at a heart rate of 120 beats per minute. He was not complaining of chest discomfort or dyspnea at that time. He further denies syncope, presyncope, PND, orthopnea, palpitations, lower extremity edema, and claudication. The patient does carry history of coronary artery disease. He suffered an anterior wall myocardial infarction in July 2012. Had a bare metal stent placed in the proximal LAD. He presented with an ST-elevation VA on August 03, 2019. Cardiac catheterization revealed a culprit 2nd diagonal branch total occlusion. Fortunately, the proximal LAD stent was patent. There was a 70% mid LAD stenosis along with a 60% D1 stenosis. The mid RCA was totally occluded with good distal collateral flow. The LCX was totally occluded and there was a 30% left main stenosis. New findings included the total occlusion of the RCA and 2nd diagonal branch. Medical management was recommended at that time. He has done well from a cardiac perspective since that time. He does not experience exertional angina pectoris or limiting dyspnea. Currently, patient is resting comfortably in the bedside chair without complaints. Past medical and surgical history 1. CAD-see above 2. Proximal LAD BMS-July 2012 3. Mild left ventricular raodxbsabmx-49-50%, July 2019 4. Apical wall motion abnormality. 5. Mild aortic insufficiency ne 6. Hypertension 7. Hypercholesterolemia 8. Chronic combined CHF 9. Diabetes mellitus 10. COPD 11. Chronic renal failure 12. Cerebral vascular disease 100% right, 50-69% left internal carotid stenoses, July 2019 13. Obstructive uropathy 14. Chronic indwelling Blue catheter 15. GERD 16. History of CVA 17. Hearing deficit 18. Cholecystectomy Social history , lives with his son No tobacco alcohol Family history Noncontributory Review systems A 10 point review systems was negative except for that described above. Allergies Allergy/AdvReac Type Severity Reaction Status Date / Time No Known Drug Allergies Allergy Unknown Verified 12/01/19 21:28 Home Medications Home Medications Medication Instructions Recorded Confirmed Type isosorbide mononitrate 120 mg 240 mg PO DAILY #180 tab 04/01/19 12/01/19 Rx tablet,extended release 24 hr aspirin 81 mg tablet,delayed 81 mg PO DAILY 06/09/19 12/01/19 History release atorvastatin 80 mg tablet 80 mg PO DAILY #90 tab 06/09/19 12/01/19 Rx docusate sodium 100 mg capsule 100 mg PO DAILY 06/09/19 12/01/19 History furosemide 20 mg tablet 20 mg PO DAILY tab 06/09/19 12/01/19 History glimepiride 2 mg tablet 2 mg PO QAM 06/09/19 12/01/19 History metoprolol tartrate 12.5 mg PO BID 30 Days #30 tab 08/22/19 12/01/19 Rx amlodipine 10 mg tablet 5 mg PO DAILY tab 08/25/19 12/01/19 History nitroglycerin 0.4 mg sublingual See Rx Instructions SL Q5M PRN #25 08/25/19 12/01/19 Rx tablet tab clopidogrel 75 mg tablet 75 mg PO QAM #30 tab 09/14/19 12/01/19 Rx Patient History Medical History CAD (coronary artery disease) CHF (congestive heart failure), NYHA class III (Acute 10/05/14) Elevated troponin (Acute) Generalized weakness (Acute) Myocardial infarction Surgical History Hx of heart artery stent Family History Other Family history non-contributory Social History Preferred Language: [place]itanian Communication Ability: Impaired Bacon Stringer Required: No Beliefs That Will Affect Care: None Current Living Situation: Family Current Living Situation Comment: lives with son and Other Information That Helps Us Care for You: No Feels Safe at Home: Yes Safety Concerns: Feels Safe At This Time Smoking Status: Unknown if ever smoked Hx Alcohol Use: No Hx Substance Use: No Physical Exam Physical Exam: In general is an elderly white male in no acute distress. HEENT exam is negative. Neck is supple with full carotid upstrokes. No obvious bruits. Jugular venous pressure is flat at 90 degrees. No thyromegaly. Cardiovascular exam reveals a regular rhythm with distant heart sounds. No obvious murmurs. No S3. Lungs are clear without rales, rhonchi or wheezes. Abdomen is soft without bruits. Extremities reveal intact radial artery pulses bilaterally. Extremities reveal trace pretibial edema. Results & Data ([facility]) Vital Signs (Past 12 Hours) Vital Signs Temp Pulse Resp BP Pulse Ox 12/02/19 11:23 37 C 68 16 116/66 94 12/02/19 07:39 37.4 C 84 19 137/71 95 12/02/19 04:00 36.8 C 81 18 145/73 H 95 Laboratory Results CBC notes hemoglobin 15.7, hematocrit 46.1, white count 17.8, platelet count [id number]. Electrolytes note a sodium of 139, potassium 3.6, chloride 109, bicarb 26, BUN 17, creatinine 1.13, and glucose of 155. Initial troponin was 0.158 with follow-up values of 0.697 and 1.1. Diagnostic Findings Initial EKG notes sinus tachycardia with an old anteroseptal VA on and ST depression in the anterolateral leads. Follow-up tracing notes sinus rhythm and lateral ST depression. Chest x-ray shows no acute disease. Echocardiogram performed in July as described above. PG Care Time/CCT Total # of Minutes Spent Total Time Spent with Patient: Total time spent is greater than 50% in coordination of care (as documented) at patient's floor/unit and/or counseling patient: Coding Level of Care Code 84283 Initial Inpt Care Lvl 3 Diagnoses Elevated troponin R74.8 CAD (coronary artery disease) I25.10 Chronic combined systolic and diastolic CHF (congestive heart failure) I50.42 Tachycardia R00.0
--- NOTE | 2019-12-02 17:32 | Hospitalist Progress Note ---
Date of Service December 02, 2019 Assessment & Plan (1) Acute UTI: CAUTI POA - has had many simmons sensitive but last culture was sensitive only to IV abx and macrobid - w septic picture would hesitate to treat w macrobid - cefepime for now pending final ID&S, d/w pt and son he might need a week of IV abx at home. change cath. (2) Sepsis: see above, POA, improving quickly (3) Urinary retention: with now chronic cath. not certain he'll always need this - in discussion with son they never followed with urology after july 2019 discharge. for now since he's ill would not be ideal time for voiding trial (would anticipate acute prostate issues in the face of infection/inflammation -- to be clear i do not think he has prostatitis) - but would ask for outpt urology f/u (4) Tachycardia: from sepsis, precipitated demand ischemia. improved (5) CAD (coronary artery disease): with demand ischemia - fortunatley mild (6) Type II diabetes mellitus: sugars showing tight control, last A1c 5.8 - will reduce insulins slightly (7) HTN (hypertension): BP reasonable continue home regimen (8) CKD (chronic kidney disease), stage III: per hx. right now creatinine relatively normal - follow (9) Hyperlipidemia: continue atorvastatin (10) DVT prophylaxis: lovenox (11) Discharge planning issues: anticipate home once cultures finalized - main question is if he will need IV abx. Admission and Anticipated Discharge Date Admission Date: December 01, 2019 Subjective d/w son - reiterated HPI - pt was in usual state of health yesterday until later in the day sudden onset of rigors/chills and chest pain. came to ER. was fine before. no sick contacts. lives with son, son's significant other, pt's . only outside contact is home health. no one has been sick. son has been trying to do well to isolate the family. pt notes feelingbetter wants to go home. no chills, no cp no sob. no fevers no cough. somewhat ANGOON Review of Systems Review of Systems: All systems reviewed & are unremarkable except as noted in HPI & below Physical Exam Physical Exam: gen pleasant nad heent nc at mmm breathing unlabored no accessory muscles good effort skin no rashes no pallor or icterus neuro no focal deficits except [place]GOON. Results & Data Results & Data ([facility]) Vital Signs (Past 12 Hours) Vital Signs Temp Pulse Resp BP Pulse Ox 12/02/19 16:20 98.6 F 74 18 121/67 94 12/02/19 11:23 98.6 F 68 16 116/66 94 12/02/19 07:39 99.3 F 84 19 137/71 95 PG Care Time/CCT Total # of Minutes Spent Total Time Spent with Patient: Total time spent is greater than 50% in coordination of care (as documented) at patient's floor/unit and/or counseling patient: Coding Level of Care Code 88634 Subseq Hosp Care Lvl 3 Diagnoses Acute UTI N39.0 Sepsis A41.9 Sepsis acute organ dysfunction status: without acute organ dysfunction Sepsis type: sepsis due to unspecified organism Urinary retention R33.9 Tachycardia R00.0 CAD (coronary artery disease) I25.10 Type II diabetes mellitus E11.9 HTN (hypertension) I10 Hypertension type: essential hypertension CKD (chronic kidney disease), stage III N18.3 Hyperlipidemia E78.5 Hyperlipidemia type: unspecified DVT prophylaxis Z29.9 Discharge planning issues Z02.9 (1) Sepsis Sepsis acute organ dysfunction status: without acute organ dysfunction Sepsis type: sepsis due to unspecified organism Qualified Code(s): A41.9 - Sepsis, unspecified organism (2) HTN (hypertension) Hypertension type: essential hypertension Qualified Code(s): I10 - Essential (primary) hypertension (3) Hyperlipidemia Hyperlipidemia type: unspecified Qualified Code(s): E78.5 - Hyperlipidemia, unspecified
[2019-12-02] MEDS: INSULIN GLARGINE SOLOSTAR 100 UNITS/ML 3 ML PEN SC SCH (20:26)
[2019-12-03 06:24] LABS: Basophils # (auto) 0.02 K/uL (0-0.2); Basophils % (auto) 0.2 %; Eosinophils # (auto) 0.37 K/uL (0-0.5); Eosinophils % (auto) 3.6 %; Hematocrit (blood only) 44.7 % (42-52); Immature Granulocytes # (auto) 0.01 K/uL (0.00-0.02); Immature Granulocytes % (auto) 0.1 %; Lymphocytes # (auto) 1.87 K/uL (1.2-3.4); Lymphocytes % (auto) 18.1 %; Mean Corpuscular Hemoglobin 31.9 pg (25-34); Mean Corpuscular Hgb Conc 33.6 g/dL (32-36); Mean Corpuscular Volume 95.1 fL (80-100); Mean Platelet Volume 11.7 fL (7.4-10.4); Monocytes # (auto) 1.24 K/uL (0.11-0.59); Neutrophils # (auto) 6.81 K/uL (1.4-6.5); Platelet Count 138 K/uL (130-400); RDW Standard Deviation 48.8 fL (36.4-46.3); White Blood Count 10.32 K/uL (4.8-10.8)
[2019-12-03 06:53] LABS: BUN Creatinine Ratio 15.9 (10-20); Calcium 9.1 mg/dl (8.5-10.1); Creatinine Clr Calc Pharmacy 54.7 ml/min; Est GFR (African American) 70.3; Est GFR (Non-African American) 60.6; Potassium 3.3 mmol/L (3.5-5.1)
[2019-12-03] MEDS: METOPROLOL TARTRATE 25 MG TAB PO SCH ×2 (09:07→20:27)
[2019-12-03] MEDS: AMLODIPINE BESYLATE 5 MG TAB PO SCH (09:07)
[2019-12-03] MEDS ORDERED: POTASSIUM CHLORIDE 20 MEQ TABCR PO STA (09:07)
[2019-12-03] MEDS: ATORVASTATIN 40 MG TAB PO SCH (09:08)
[2019-12-03] MEDS: CLOPIDOGREL BISULFATE 75 MG TAB PO SCH (09:08)
[2019-12-03] MEDS: ASPIRIN 81 MG ECTAB PO SCH (09:08)
[2019-12-03] MEDS: DOCUSATE SODIUM 100 MG CAP PO SCH (09:08)
[2019-12-03] MEDS: ISOSORBIDE MONO EXTENDED REL 60 MG TABCR PO SCH (09:08)
[2019-12-03] MEDS: INSULIN ASPART 100 UNITS/ML 3 ML PEN SC SCH ×4 (09:09→20:24)
[2019-12-03] MEDS: ENOXAPARIN INJ 40 MG/0.4 ML SYR SQ SCH (09:10)
[2019-12-03] MEDS: INSULIN GLARGINE SOLOSTAR 100 UNITS/ML 3 ML PEN SC SCH ×2 (10:56→20:25)
--- NOTE | 2019-12-03 11:17 | Hospitalist Progress Note ---
Date of Service December 03, 2019 Assessment & Plan (1) Acute UTI: CAUTI POA - has had many simmons sensitive but last culture was sensitive only to IV abx and macrobid - cath changed - d/w lab and concerning for ESBL. anticipate will probably have to go home on IV - asked nursing to have US guided peripheral placed (since he'll likely only need ~4-5 more days after discharge). given high chance ESBL have to wait on sensitivities to get him home safely. continue cefepime for now since his prior ESBL was S to this and he has improved nicely (2) Sepsis: see above, POA, fortunately this has esssentially resolved. (3) Urinary retention: with now chronic cath. not certain he'll always need this - in 4/3 discussion with son they never followed with urology after july 2019 discharge. for now since he's ill would not be ideal time for voiding trial (would anticipate acute prostate issues in the face of infection/inflammation -- to be clear i do not think he has prostatitis) - but would ask for outpt urology f/u resendez changed (4) Tachycardia: from sepsis, precipitated demand ischemia. resolved (5) CAD (coronary artery disease): with demand ischemia - fortunatley mild -- trop in 1.1 range. repeat in AM since technically last reading sl higher than before, but overall not a concerning picture and he is CP free cardiology input appreciated (6) Type II diabetes mellitus: last A1c 5.8, sugars today still too tight despite reduction in insulin - will reduce further (7) HTN (hypertension): BP shows acceptable control (8) CKD (chronic kidney disease), stage III: per hx. right now creatinine relatively normal - follow periodically hypokalemia - replace (9) Hyperlipidemia: continue atorvastatin (10) DVT prophylaxis: lovenox (11) Discharge planning issues: anticipate home once cultures finalized - anticipating need for IV abx. case management aware and US guided peripheral to be placed Admission and Anticipated Discharge Date Admission Date: December 01, 2019 Subjective feleing better overall chest feels better breathing just fine no f/c/s urine culture still pending - spoke w lab - concern on ESBL - final sensitivit ies into tomorrow dw case management - likely will take until thursday for pricing for IV abx Review of Systems Review of Systems: All systems reviewed & are unremarkable except as noted in HPI & below Physical Exam Physical Exam: gen aao somewhat [place] making conversation a little difficult but no distress. heent nc at mmm breathing unlabored no accessory muscles good effort skin no rashes no pallor or icterus neuro no focal deficits Results & Data Results & [facility] ([facility]) Vital Signs (Past 12 Hours) Vital Signs Temp Pulse Pulse Resp BP Pulse Ox Pulse Ox 12/03/19 08:00 90 12/03/19 07:08 98.6 F 67 11 L 122/69 94 12/03/19 04:30 98.6 F 68 17 127/57 L 96 12/02/19 23:50 96 12/02/19 23:49 98.4 F 65 16 114/63 93 PG Care Time/CCT Total # of Minutes Spent Total Time Spent with Patient: Total time spent is greater than 50% in coordination of care (as documented) at patient's floor/unit and/or counseling patient: Coding Level of Care Code 99523 Subseq Hosp Care Lvl 3 Diagnoses Acute UTI N39.0 Sepsis A41.9 Sepsis acute organ dysfunction status: without acute organ dysfunction Sepsis type: sepsis due to unspecified organism Urinary retention R33.9 Tachycardia R00.0 CAD (coronary artery disease) I25.10 Type II diabetes mellitus E11.9 HTN (hypertension) I10 Hypertension type: essential hypertension CKD (chronic kidney disease), stage III N18.3 Hyperlipidemia E78.5 Hyperlipidemia type: unspecified DVT prophylaxis Z29.9 Discharge planning issues Z02.9 (1) Sepsis Sepsis acute organ dysfunction status: without acute organ dysfunction Sepsis type: sepsis due to unspecified organism Qualified Code(s): A41.9 - Sepsis, unspecified organism (2) HTN (hypertension) Hypertension type: essential hypertension Qualified Code(s): I10 - Essential (primary) hypertension (3) Hyperlipidemia Hyperlipidemia type: unspecified Qualified Code(s): E78.5 - Hyperlipidemia, unspecified
[2019-12-03] MEDS: CEFEPIME 2,000 MG in SYRINGE 7.5 ML IV SCH (20:30)
[2019-12-04] MEDS: ENOXAPARIN INJ 40 MG/0.4 ML SYR SQ SCH (08:25)
[2019-12-04] MEDS: ATORVASTATIN 40 MG TAB PO SCH (08:25)
[2019-12-04] MEDS: DOCUSATE SODIUM 100 MG CAP PO SCH (08:25)
[2019-12-04] MEDS: ISOSORBIDE MONO EXTENDED REL 60 MG TABCR PO SCH (08:25)
[2019-12-04] MEDS: METOPROLOL TARTRATE 25 MG TAB PO SCH (08:25)
[2019-12-04] MEDS: CLOPIDOGREL BISULFATE 75 MG TAB PO SCH (08:26)
[2019-12-04] MEDS: ASPIRIN 81 MG ECTAB PO SCH (08:26)
[2019-12-04] MEDS: AMLODIPINE BESYLATE 5 MG TAB PO SCH (08:26)
[2019-12-04] MEDS: INSULIN GLARGINE SOLOSTAR 100 UNITS/ML 3 ML PEN SC SCH (08:27)
[2019-12-04] MEDS: INSULIN ASPART 100 UNITS/ML 3 ML PEN SC SCH ×2 (08:27→13:23)
[2019-12-04] MEDS: CEFEPIME 2,000 MG in SYRINGE 7.5 ML IV SCH (13:22)
--- NOTE | 2019-12-04 13:46 | Discharge Summary ---
Date of Service December 04, 2019 Admission HPI Per Admitting Provider 79 yo M PMHx DM2, HTN, HLD, CAD, CHF with EF 40-45%, obstructive uropathy with chronic indwelling catheter admitted to the hospital for acute care and management of sepsis 2/2 UTI, chest discomfort, and electrolyte abnormalities. In ED patient had ACS workup with EKG which showed sinus tachycardia without ST changes, troponin elevated to 0.158 (chronically elevated), leukocytosis with left shift without elevated procal or lactate. UA concerning for infection, CXR with mild infiltrate, CT head without acute infarct or abnormality. BMP showed hypomagnesemia/hyponatremia/hypokalemia. BCx x2 and UCx collected, then patient received cefepime, NSS 500mL bolus, Mg 1g IV, K Riders 10meq. Inpatient service consulted for admission. On my interview patient is very hard of hearing making history collecting difficult. Some collateral collected from patient's son over the phone. Per patient he was having some chest and abdominal discomfort for several hours that his home nitro did not help, and he was also having chills and weakness x2 days. Denied shortness of breath, nausea, vomiting, diarrhea, hematuria. Has an indwelling catheter but was unable to explain why he has it. No sick contacts. No recent travel. Principal Diagnosis cauti POA, sepsis POA Discharge Exam gen pleasant nad very [place] heent nc at mmm breathing unlabored no accessory muscles good effort skin no rashes no pallor or icterus Discharge Data Allergies Allergy/AdvReac Type Severity Reaction Status Date / Time No Known Drug Allergies Allergy Unknown Verified 12/01/19 21:28 Consultations 12/01/19 21:13 ED Decision to Admit Stat 12/02/19 03:47 Consult Cardiology Routine 12/04/19 10:33 Consult [facility] hand sander Routine Ordered Studies 12/01/19 19:59 CT head/brain wo con Stat Hospital Course (1) Acute UTI: CAUTI POA - MDR E Coli and simmons sensitive proteus. improved nicely on cefepime; would hesitate to treat CAUTI that led to sepsis (even though sepsis has now resolved) w macrobid alone, but E Coli best with this as oral option; is reasonably S to cefotaxime, which on discussion w pharmacy, is reasonably similar to cefdinir --> therefore after careful consideration and discussion with clinical pharmacy - will dc home on nitrofurantoin plus cefdinir (the risk of course being a small (probably very small) chance of subpar resolution of treatment of current infection -- but since he has improved so quickly and has already had 3 days IV cefepime prior to discharge this is unlikely to be the case; the benefit would be not needing to go home w IV, shorter time in hospital, saving IV level abx - particularly since he likely would have gone home on ertapenem) for when/if PO is no longer an option (particularly of concern given the high resistance profile of his E Coli) ---home as above, outpt f/u (2) Sepsis: see above, POA, fortunately this has esssentially resolved. (3) Urinary retention: with now chronic cath. not certain he'll always need this - in 4/3 discussion with son they never followed with urology after july 2019 discharge. for now since he's ill would not be ideal time for voiding trial (would anticipate acute prostate issues in the face of infection/inflammation -- to be clear i do not think he has prostatitis) - referred for urology f/u routinely resendez changed during this admission and after abx had been started and sepsis was resolving (4) Tachycardia: from sepsis, precipitated demand ischemia. resolved (5) CAD (coronary artery disease): with demand ischemia - fortunatley mild -- trop in 1.1 range. repeat in AM since technically last reading sl higher than before, but overall not a concerning picture and he is CP free cardiology input appreciated (6) Type II diabetes mellitus: last A1c 5.8, stop glimeperide and just watch carb intake (7) HTN (hypertension): BP shows acceptable control (8) CKD (chronic kidney disease), stage III: per hx. right now creatinine relatively normal - follow periodically hypokalemia - replace (9) Hyperlipidemia: continue atorvastatin (10) DVT prophylaxis: lovenox (11) Discharge planning issues: home as above Total Time Total Time Spent Total Time Spent (In Minutes): >30 Discharge Plan Discharge Items Patient Disposition: Home - Self-Care Reason For Visit: SEPSIS 2/2 UTI Discharge Diagnosis: urinary tract infection Condition on Discharge: Fair Activity: Resume your previous activity Non-emergency contact: Primary Care Provider and Urologist Call non-emergency contact if: you have any medication questions, your symptoms worsen and your temperature is above 101 Follow-up/Referrals: Mp Sanchez III, MD [Primary Care Provider] - Diet: Carb Consistent or DM2 and Heart Healthy Addtl Attending Provider Instructions: urinary tract infection -the UTI was what was making you sick - you grew two different bacteria in your culture - and either or both were the culprit for infection. fortunately the plan that we're utilizing to treat the harder of the two bacteria will work for both -we'll need to use two different antibiotics together to clear the infection - the antibiotic dr sanchez sent in (nitrofurantoin) AND another antibiotic (cefdinir) -- both for another week (which will complete 10 total days of antibiotics) - next dose of both tonight. both are generally well tolerated - if you do find they upset your stomach, then take them with food urinary retention/catheter -after your heart attack in july, you had a lot of urinary retention - which led to the catheter being placed. what is not clear is whether you will truly need that forever or not -right now is not the best time to work on this - but after we've treated the infection and the local situation with coronavirus settles down, we would strongly recommend that you follow up with urology, as you might be able to get rid of the catheter if we do things properly and carefully. we'll ask that things be set in motion to get this follow up underway diabetes -your sugar levels overall show good control - it would be OK to stop your glimeperide and just try to avoid eating simple/starchy/sugary carbs coronavirus -while your current stay has nothing to do with the current situation with the coronavirus, you are exactly the type of person we want to keep safe. what we've learned is that the huge majority of transmission is droplet and fomite. ----droplet -- this means that the virus floats for a little while in a halo around people --- but not too far - typically this is where the "stay 6 feet away" recommendations come in. we do know that people can transmit the virus without symptoms, so it's important to look at any spit or snot from someone else as possibly infectious. ----fomite -- this is the virus sitting on surfaces, basically where someone else's spit or snot has landed. if you touch it and then touch your face/mouth/eyes/nose then you can coal picker the virus this way as well. in this respect it's really important to get a little bit obsessive about handwashing and trying really hard to not touch your face (you'd be amazed, but in some studies people touch their faces nearly 25 times an hour on average, most of the time without even really paying attention to notice) Pending Studies at Discharge: No Stand-Alone Forms: My [facility], Smoking Cessation Medications and DC Order Prescriptions: New cefdinir 300 mg capsule 300 mg PO BID 5 Days Qty: 10 RF: 0 cefdinir 300 mg capsule 300 mg PO BID 7 Days Qty: 14 RF: 0 nitrofurantoin macrocrystal 100 mg capsule 100 mg PO BID 7 Days Qty: 14 RF: 0 Continued isosorbide mononitrate 120 mg tablet extended release 24 hr 240 mg PO DAILY Qty: 180 RF: 3 aspirin 81 mg tablet,delayed release (DR/EC) 81 mg PO DAILY RF: 0 docusate sodium 100 mg capsule 100 mg PO DAILY RF: 0 furosemide 20 mg tablet 20 mg PO DAILY RF: 0 atorvastatin 80 mg tablet 80 mg PO DAILY Qty: 90 RF: 3 nitroglycerin [Nitrostat] 0.4 mg tablet, sublingual See Rx Instructions SL Q5M PRN (Reason: Chest Pain) Qty: 25 RF: 3 amlodipine 10 mg tablet 5 mg PO DAILY RF: 0 clopidogrel 75 mg tablet 75 mg PO QAM Qty: 30 RF: 5 metoprolol tartrate 25 mg Tablet 12.5 mg PO BID 30 Days Qty: 30 RF: 2 Discontinued glimepiride 2 mg tablet 2 mg PO QAM RF: 0 Discharge Orders: Discharge Order (Routine); Ordered 12/04/19 Ordered By: Jez Butler Admission Data Admit Date/Time: 12/01/19 22:43 Attending Provider: Jez Butler Admit Provider: Carla Pace Primary Care Provider: Mp Sanchez III Other Providers: Jesse Bolton ; Dawood Coronado ; [facility] Coding Level of Care Code D/C Day Management >30 mins Diagnoses Acute UTI N39.0 Sepsis A41.9 Sepsis acute organ dysfunction status: without acute organ dysfunction Sepsis type: sepsis due to unspecified organism Urinary retention R33.9 Tachycardia R00.0 CAD (coronary artery disease) I25.10 Type II diabetes mellitus E11.9 HTN (hypertension) I10 Hypertension type: essential hypertension CKD (chronic kidney disease), stage III N18.3 Hyperlipidemia E78.5 Hyperlipidemia type: unspecified DVT prophylaxis Z29.9 Discharge planning issues Z02.9
--- NOTE | 2019-12-06 02:45 | Billing Data ---
Date of Service December 06, 2019 Coding Level of Care Code 22032 Initial Inpt Care Lvl 3
== END 2019-12-04 15:07 | disposition home health service (06) | DRG 698 ==
LOC: ED 19:35 → 2E 22:43 → SUATTDRO 22:43 → 2E 23:22